=== PATIENT | male | born 1960 ===

== ENCOUNTER 2023-09-22 15:31 | Inpatient (IN) | payer OTHER ==
--- NOTE | 2023-09-22 15:53 | ED ---
General Adult HPI - General Chief complaint: Skin/Abscess/Foreign Body Stated complaint: Sores on body-sent by PCP Time Seen by Provider: 09/22/23 15:51 Source: patient Mode of arrival: wheelchair Limitations: no limitations - History of Present Illness Initial comments: It is a 63-year-old gentleman who presents the ER today from [facility] for worsening sacral and right hip wounds. Patient is wheelchair-bound at baseline he has chronic wounds he been getting wound care but they are worsening and now have malodorous discharge. - Related Data Home Medications Medication Instructions Recorded Confirmed ALPRAZolam [Xanax] 0.25 mg PEG/G-TUBE QID 06/27/23 09/22/23 Aspirin 81 mg PEG/G-TUBE DAILY 06/27/23 09/22/23 Atorvastatin [Lipitor] 40 mg PEG/G-TUBE HS 06/27/23 09/22/23 Clopidogrel [Plavix] 75 mg PEG/G-TUBE DAILY 06/27/23 09/22/23 Cyanocobalamin (Vitamin B-12) 1,000 mcg PEG/G-TUBE DAILY 06/27/23 09/22/23 [Vitamin B-12] Divalproex Sprinkle [Depakote 250 mg PEG/G-TUBE BID 06/27/23 09/22/23 Sprinkle] Doxazosin Mesylate [Cardura] 4 mg PEG/G-TUBE DAILY 06/27/23 09/22/23 Famotidine 20 mg PEG/G-TUBE BID 06/27/23 09/22/23 Ferrous Sulfate Oral Elixir 450 mg PEG/G-TUBE DAILY 06/27/23 09/22/23 [Feosol Liquid] Folic Acid 1 mg PEG/G-TUBE DAILY 06/27/23 09/22/23 HYDROcodone/APAP 5-325MG [[place] 1 tab PEG/G-TUBE Q4H PRN 06/27/23 09/22/23 5-325] Losartan [Cozaar] 25 mg PEG/G-TUBE DAILY 06/27/23 09/22/23 Metoprolol Tartrate 37.5 mg PEG/G-TUBE TID 06/27/23 09/22/23 Scopolamine 1 mg/72 Hr Patch 1 patch TRANSDERM Q72H 06/27/23 09/22/23 [TransDerm Scop] Thiamine [Vitamin B-1] 100 mg PEG/G-TUBE DAILY 06/27/23 09/22/23 levETIRAcetam [Keppra Oral 500 mg PEG/G-TUBE BID 06/27/23 09/22/23 Solution] traMADol HCL 50 mg PEG/G-TUBE TID 06/27/23 09/22/23 Acetaminophen [Tylenol] 650 mg PEG/G-TUBE Q4H PRN 09/22/23 09/22/23 Collagenase [Santyl Ointment] 1 applic TOPICAL BID 09/22/23 09/22/23 Collagenase [Santyl Ointment] 1 applic TOPICAL DAILY PRN 09/22/23 09/22/23 Multivitamins, Thera [Multivitamin 1 tab PEG/G-TUBE DAILY 09/22/23 09/22/23 (formulary)] Nystatin 100,000 Unit/gm Powd 1 applic TOPICAL BID 09/22/23 09/22/23 [Mycostatin Powder] Renacidin Irrigation Solution 50 ml IRRIGATION MOWEFR 09/22/23 09/22/23 (Citric Rgtg-Svvbikaffqyhkh-Cghxtsjnm Carbonate) Sodium Chloride [[place]] 1 spray EA NOSTRIL TID 09/22/23 09/22/23 Allergies Allergy/AdvReac Type Severity Reaction Status Date / Time No Known Allergies Allergy Verified 09/22/23 19:42 Review of Systems ROS Statement: Those systems with pertinent positive or pertinent negative responses have been documented in the HPI. ROS Other: All systems not noted in ROS Statement are negative. Past Medical History Past Medical History: Coronary Artery Disease (CAD), CVA/TIA, GERD/Reflux, Hyperlipidemia, Hypertension, Myocardial Infarction (AL), Seizure Disorder, Vascular Disorder Additional Past Medical History / Comment(s): METABOLIC ENCEPHALOPATHY,DIC,PVD,PROSTATIC HYPERPLASIA,TACHYCARDIA,DYSPHA OSVALDO,HEMOPLEGIA,HEMIPARESIS,DYSARTHRIA,COVID,VITAMIN B12 DEFICIENCY,TUBE FEEDING Last Myocardial Infarction Date:: 01/20/23 History of Any Multi-Drug Resistant Organisms: None Reported Past Surgical History: Orthopedic Surgery Additional Past Surgical History / Comment(s): RANGEL CATHETER,PEG TUBE ,ABOVE THE KNEE AMPUTATION LEFT , Past Psychological History: Depression Smoking Status: Current every day smoker General Exam - General Exam Comments Initial Comments: Physical Exam GENERAL: Chronically ill-appearing debilitated HENT: Normocephalic, Atraumatic. EYES: PERRL, EOMI PULMONARY: Unlabored respirations CARDIOVASCULAR: Regular rate and rhythm ABDOMEN: PEG tube in place, some yellow crusty material around the base of the PEG tube but no overt signs of infection no apparent tenderness to palpation SKIN: There is a unstageable sacral decubitus There is a large wound on the right hip approximately 2 to 3 cm deep with malodorous discharge : Deferred NEUROLOGIC: Patient with mumbling slurred speech, contractures MUSCULOSKELETAL: Left above-knee amputation PSYCHIATRIC: Normal psychiatric evaluation. Limitations: no limitations Course Vital Signs 09/22/23 09/22/23 09/22/23 15:34 18:00 19:00 Temperature 97.8 F Pulse Rate 80 85 92 Respiratory 16 16 16 Rate Blood Pressure 109/76 120/91 107/79 O2 Sat by Pulse 100 94 L 92 L Oximetry 09/22/23 09/22/23 09/22/23 20:00 20:53 22:00 Temperature Pulse Rate 90 79 86 Respiratory 16 20 16 Rate Blood Pressure 118/81 118/61 116/79 O2 Sat by Pulse 99 95 99 Oximetry EKG Findings - EKG Comments: EKG Findings:: EKG interpreted by id EKG obtained at 1807 rate is 90 rhythm is sinus normal axis, normal intervals, OK 124 QRS 89 QTc [address] elevations or depressions no evidence of ischemia or infarction. Medical Decision Making - Medical Decision Making Was pt. sent in by a medical professional or institution (, PA, SYSTEM ADMINISTRATOR, urgent care, hospital, or long term...) When possible be specific @ -, Sent from long term Did you speak to anyone other than the patient for history (EMS, parent, family, police, friend...)? What history was obtained from this source @ -No Did you review nursing and triage notes (agree or disagree)? Why? @ -I reviewed and agree with nursing and triage notes Were old charts reviewed (outside hosp., previous admission, EMS record, old EKG, old radiological studies, urgent care reports/EKG's, long term records)? Report findings @ -Previous admissions were reviewed Differential Diagnosis (chest pain, altered mental status, abdominal pain women, abdominal pain men, vaginal bleeding, weakness, fever, dyspnea, syncope, h eadache, dizziness, GI bleed, back pain, seizure, CVA, palpatations, mental health)? @ -Nonhealing wound, infected wound, underlying sterile myelitis EKG interpreted by me (3pts min.). @ -As above X-rays interpreted by me (1pt min.). @ -None done CT interpreted by me (1pt min.). @ -None done U/S interpreted by me (1pt. min.). @ -None done What testing was considered but not performed or refused? (CT, X-rays, U/S, labs)? Why? @ -None What meds were considered but not given or refused? Why? @ -None Did you discuss the management of the patient with other professionals (professionals i.e. DrBarry, PA, SYSTEM ADMINISTRATOR, lab, RT, psych nurse, home health care social worker, teller supervisor, teacher, chief business officer, watch caser)? Give summary @ -Discussed with admitting physician Was smoking cessation discussed for >3mins.? @ -No Was critical care preformed (if so, how long)? @ -No Were there social determinants of health that impacted care today? How? (Homelessness, low income, unemployed, alcoholism, drug addiction, ramirez sportation, low edu. Level, literacy, decrease access to med. care, senior living, rehab)? @ -No Was there de-escalation of care discussed even if they declined (Discuss DNR or withdrawal of care, Hospice)? DNR status @ -No What co-morbidities impacted this encounter? (DM, HTN, Smoking, COPD, CAD, Cancer, CVA, ARF, Chemo, Hep., AIDS, mental health diagnosis, sleep apnea, morbid obesity)? @ -CVA, paraplegia Was patient admitted / discharged? Hospital course, mention meds given and route, prescriptions, significant lab abnormalities, going to OR and other pertinent info. @ -Admit The patient was seen and evaluated, history was obtained from the patient. History and physical exam are consistent with an infected chronic wound. IV antibiotics were obtained. Septic workup was otherwise unremarkable patient will be admitted for 6 wound care and infectious disease consults. Undiagnosed new problem with uncertain prognosis? @ -No Drug Therapy requiring intensive monitoring for toxicity (Heparin, Nitro, Insulin, Cardizem)? @ -No Were any procedures done? @ -No Diagnosis/symptom? @ -Nonhealing sacral decubitus and right hip wound Acute, or Chronic, or Acute on Chronic? @ -Chronic Uncomplicated (without systemic symptoms) or Complicated (systemic symptoms)? @ -Default Side effects of treatment? @ -No Exacerbation, Progression, or Severe Exacerbation? @ -No Poses a threat to life or bodily function? How? (Chest pain, [place], AL, pneumonia, PE, COPD, DKA, ARF, appy, cholecystitis, CVA, Diverticulitis, Homicidal, Suicidal, threat to staff... and all critical care pts) @ -No - Lab Data Result diagrams: 09/22/23 18:23 09/22/23 18:23 Lab Results 09/22/23 09/22/23 09/22/23 Range/Units 18:23 18:23 18: WBC 5.5 (3.8-10.6) k/uL RBC 3.56 L (4.30-5.90) m/uL Hgb 8.2 L (13.0-17.5) gm/dL Hct 27.1 L (39.0-53.0) % MCV 76.1 L D (80.0-100.0) fL MCH 22.9 L (25.0-35.0) pg MCHC 30.1 L (31.0-37.0) g/dL RDW 17.0 H (11.5-15.5) % Plt Count 651 H (150-450) k/uL MPV 7.0 Neutrophils % 68 % Lymphocytes % 22 % Monocytes % 6 % Eosinophils % 3 % Basophils % 0 % Neutrophils # 3.8 (1.3-7.7) k/uL Lymphocytes # 1.2 (1.0-4.8) k/uL Monocytes # 0.3 (0-1.0) k/uL Eosinophils # 0.1 (0-0.7) k/uL Basophils # 0.0 (0-0.2) k/uL Hypochromasia Moderate Anisocytosis Slight Microcytosis Slight PT 11.9 (10.0-12.5) sec INR 1.1 (<1.2) APTT 29.9 (22.0-30.0) sec Sodium 137 (137-145) mmol/L Potassium 4.2 (3.5-5.1) mmol/L Chloride 101 (98-107) mmol/L Carbon Dioxide 28 (22-30) mmol/L Anion Gap 8 mmol/L BUN 21 H (9-20) mg/dL Creatinine 0.43 L (0.66-1.25) mg/dL Est GFR (CKD-EPI)AfAm >90 (>60 ml/min/1.73 sqM) Est GFR (CKD-EPI)NonAf >90 (>60 ml/min/1.73 sqM) Glucose 100 H (74-99) mg/dL Plasma Lactic Acid [place] (0.7-2.0) mmol/L Calcium 8.8 (8.4-10.2) mg/dL Total Bilirubin 0.5 (0.2-1.3) mg/dL AST 25 (17-59) U/L ALT 32 (4-49) U/L Alkaline Phosphatase 92 (38-126) U/L C-Reactive Protein 8.9 H (<1.0) mg/dL Total Protein 6.8 (6.3-8.2) g/dL Albumin 3.1 L (3.5-5.0) g/dL 09/22/23 Range/Units 18:23 WBC (3.8-10.6) k/uL RBC (4.30-5.90) m/uL Hgb (13.0-17.5) gm/dL Hct (39.0-53.0) % MCV (80.0-100.0) fL MCH (25.0-35.0) pg MCHC (31.0-37.0) g/dL RDW (11.5-15.5) % Plt Count (150-450) k/uL MPV Neutrophils % % Lymphocytes % % Monocytes % % Eosinophils % % Basophils % % Neutrophils # (1.3-7.7) k/uL Lymphocytes # (1.0-4.8) k/uL Monocytes # (0-1.0) k/uL Eosinophils # (0-0.7) k/uL Basophils # (0-0.2) k/uL Hypochromasia Anisocytosis Microcytosis PT (10.0-12.5) sec INR (<1.2) APTT (22.0-30.0) sec Sodium (137-145) mmol/L Potassium (3.5-5.1) mmol/L Chloride (98-107) mmol/L Carbon Dioxide (22-30) mmol/L Anion Gap mmol/L BUN (9-20) mg/dL Creatinine (0.66-1.25) mg/dL Est GFR (CKD-EPI)AfAm (>60 ml/min/1.73 sqM) Est GFR (CKD-EPI)NonAf (>60 ml/min/1.73 sqM) Glucose (74-99) mg/dL Plasma Lactic Acid [place] 1.2 (0.7-2.0) mmol/L Calcium (8.4-10.2) mg/dL Total Bilirubin (0.2-1.3) mg/dL AST (17-59) U/L ALT (4-49) U/L Alkaline Phosphatase (38-126) U/L C-Reactive Protein (<1.0) mg/dL Total Protein (6.3-8.2) g/dL Albumin (3.5-5.0) g/dL Disposition Clinical Impression: Sacral decubitus ulcer, Non-healing wound Disposition: ADMITTED IP TO THIS [facility] Condition: Serious Is patient prescribed a controlled substance at d/c from ED?: No
[2023-09-22 18:42] LABS: Anisocytosis Slight; Basophils % (A) 0 %; Eosinophils # (A) 0.1 k/uL (0-0.7); Eosinophils % (A) 3 %; HCT 27.1 % (39.0-53.0); HGB 8.2 gm/dL (13.0-17.5); Hypochromasia Moderate; Lymphocytes # (A) 1.2 k/uL (1.0-4.8); Lymphocytes % (A) 22 %; MCH 22.9 pg (25.0-35.0); MCHC 30.1 g/dL (31.0-37.0); Microcytosis Slight; Monocytes # (A) 0.3 k/uL (0-1.0); Monocytes % (A) 6 %; Neutrophils # (A) 3.8 k/uL (1.3-7.7); Neutrophils % (A) 68 %; Platelet Count 651 k/uL (150-450); RBC 3.56 m/uL (4.30-5.90); WBC 5.5 k/uL (3.8-10.6)
[2023-09-22 18:51] LABS: INR 1.1 (<1.2); MCV 76.1 fL (80.0-100.0); Partial Thromboplastin Time 29.9 sec (22.0-30.0); Prothrombin Time 11.9 sec (10.0-12.5)
[2023-09-22] MEDS ORDERED: NALOXONE 0.4 MG/ML 1 ML VIAL IV PRN (18:53)
[2023-09-22 19:00] LABS: ALT 32 U/L (4-49); AST 25 U/L (17-59); African American GFR (CKD) >90 (>60 ml/min/1.73 sqM); Albumin 3.1 g/dL (3.5-5.0); Alkaline Phosphatase 92 U/L (38-126); Anion Gap 8 mmol/L; Blood Urea Nitrogen 21 mg/dL (9-20); C Reactive Protein 8.9 mg/dL (<1.0); Calcium 8.8 mg/dL (8.4-10.2); Carbon Dioxide 28 mmol/L (22-30); Chloride 101 mmol/L (98-107); Glucose 100 mg/dL (74-99); Non-African American GFR(CKD) >90 (>60 ml/min/1.73 sqM); Potassium 4.2 mmol/L (3.5-5.1); Sodium 137 mmol/L (137-145); Total Bilirubin 0.5 mg/dL (0.2-1.3); Total Protein 6.8 g/dL (6.3-8.2)
[2023-09-22] MEDS: PIPERACILLIN-TAZOBACTAM 3.375 GM in SODIUM CHLORIDE 0.9% 100 ML IVPB STA (19:02)
[2023-09-23] MEDS: ATORVASTATIN 40 MG TAB PEG/G-TUBE SCH (00:23)
[2023-09-23] MEDS: ALPRAZolam 0.25 MG TAB PEG/G-TUBE SCH (00:23)
[2023-09-23] MEDS: traMADol 50 MG TAB PEG/G-TUBE SCH (00:23)
[2023-09-23] MEDS: levETIRAcetam ORAL SOLN 500 MG/5 ML CUP PEG/G-TUBE SCH (00:36)
[2023-09-23] MEDS: DIVALPROEX SPRINKLE 125 MG CAP.SPRINK PEG/G-TUBE SCH (00:36)
[2023-09-23] MEDS: SODIUM CHLORIDE 0.9% 1,000 ML IV SCH (00:54)
[2023-09-23] MEDS: SCOPOLAMINE 1 MG/72 HR PATCH TRANSDERM SCH (00:59)
[2023-09-23] MEDS: NYSTATIN 100,000 UNIT/GM POWD 15 GM TOPICAL SCH (01:03)
[2023-09-23] MEDS: ACETAMINOPHEN TAB 325 MG TAB PEG/G-TUBE PRN (01:49)
[2023-09-23 02:59] LABS: Erythrocyte Sedimentation Rate 119 mm/Hr (0-20)
[2023-09-23] MEDS: COLLAGENASE 250 UNIT/GM OINTMENT 30 GM TUBE TOPICAL SCH (07:40)
[2023-09-23] MEDS: CYANOCOBALAMIN 500 MCG TAB PEG/G-TUBE SCH (08:49)
[2023-09-23] MEDS: FAMOTIDINE 20 MG TAB PEG/G-TUBE SCH (08:49)
[2023-09-23] MEDS: LOSARTAN 25 MG TAB PEG/G-TUBE SCH (08:51)
[2023-09-23] MEDS: CLOPIDOGREL 75 MG TAB PEG/G-TUBE SCH (08:51)
[2023-09-23] MEDS: METOPROLOL TARTRATE 25 MG TAB PEG/G-TUBE SCH (08:51)
[2023-09-23] MEDS: ASPIRIN 81 MG PEG/G-TUBE SCH (08:51)
[2023-09-23] MEDS: MULTIVITAMINS, THERA 1 EACH TAB PEG/G-TUBE SCH (08:51)
[2023-09-23] MEDS: THIAMINE 100 MG TAB PEG/G-TUBE SCH (08:51)
[2023-09-23] MEDS: FOLIC ACID 1 MG TAB PEG/G-TUBE SCH (08:51)
[2023-09-23] MEDS: FERROUS SULFATE ORAL ELIXIR 300 MG/5 ML CUP PEG/G-TUBE SCH (08:52)
[2023-09-23] MEDS: DOXAZOSIN 4 MG TAB PEG/G-TUBE SCH (08:54)
[2023-09-23] MEDS: SODIUM CHLORIDE 0.65% NASAL SPRAY 44 ML BTL NASAL SCH (08:56)
--- NOTE | 2023-09-23 12:48 | P.GSCN ---
History of Present Illness Consult date: 09/23/23 History of present illness: CHIEF COMPLAINT: Decubitus ulcer of the sacrum and bilateral hips HISTORY OF PRESENT ILLNESS: This is a 63-year-old male who was brought from [facility] due to worsening sacral and bilateral hip wounds. Patient is a poor historian. Information obtained from chart. Patient apparently had worsening drainage that was malodorous. He has been receiving wound care for his chronic wounds. Patient is bedbound. No history of diabetes. Patient did have a low- grade fever on admission. Surgical service consulted for decubitus ulcer debridement. PAST MEDICAL HISTORY: Coronary Artery Disease (CAD), CVA, GERD/Reflux, Hyperlipidemia, Hypertension, Myocardial Infarction (MS), Seizure Disorder, Vascular Disorder, METABOLIC ENCEPHALOPATHY,DIC,PVD,PROSTATIC HYPERPLASIA,TACHYCARDIA,DYSPHASIA,HEMOPLEGIA,HEMIPARESIS,DYSARTHRIA,COVID,VITAMI N B12 DEFICIENCY,TUBE FEEDING PAST SURGICAL HISTORY: PEG TUBE ,ABOVE THE KNEE AMPUTATION LEFT MEDICATIONS: See below ALLERGIES: See below SOCIAL HISTORY: No illicit drug use. REVIEW OF SYSTEMS: CONSTITUTIONAL: Denies fever or chills. HEENT: Denies blurred vision, vision changes, or eye pain. Denies hemoptysis CARDIOVASCULAR: Denies chest pain or pressure. RESPIRATORY: No shortness of breath. GASTROINTESTINAL: See HPI for pertinent findings HEMATOLOGIC: Denies bleeding disorders. GENITOURINARY: Denies any blood in urine or increased urinary frequency. SKIN: Denies pruitis. Denies rash. PHYSICAL EXAM: VITAL SIGNS: Reviewed GENERAL: Well-developed in no acute distress. ABDOMEN: Soft. Nondistended. Nontender NEUROLOGIC: Awake SKIN: Sacral wound with healthy tissue. Left hip wound with granulation tissue noted right hip wound with granulation tissue and drainage. Rectum with large hemorrhoids. Small wound distal to the anus and hemorrhoids with stool present All exam findings were discussed with Dr. Pleitez LABORATORY DATA: WBC 5.5 Hgb 8.2 platelets 651 Sodium 137 potassium 4.2 creatinine 0.43 IMAGING: ASSESSMENT: 1. Sacral wound and bilateral hip wounds 2. History of chronic wounds PLAN: -Patient scheduled for debridement of sacral and bilateral hip wounds on Tuesday, September 26, [address] Pleitez -Hold Plavix -Continue local wound care -Continue offloading Physician Binder Roller note has been reviewed by physician. Signing provider agrees with the documented findings, assessment, and plan of care. Past Medical History Past Medical History: Coronary Artery Disease (CAD), CVA/TIA, GERD/Reflux, Hyperlipidemia, Hypertension, Myocardial Infarction (MS), Seizure Disorder, Vascular Disorder Additional Past Medical History / Comment(s): METABOLIC ENCEPHALOPATHY,DIC,PVD,PROSTATIC HYPER PLASIA,TACHYCARDIA,DYSPHASIA,HEMOPLEGIA,HEMIPARESIS,DYSARTHRIA,COVID,VITAMIN B12 DEFICIENCY,TUBE FEEDING Last Myocardial Infarction Date:: 01/20/23 History of Any Multi-Drug Resistant Organisms: None Reported Past Surgical History: Orthopedic Surgery Additional Past Surgical History / Comment(s): RANGEL CATHETER,PEG TUBE ,ABOVE THE KNEE AMPUTATION LEFT , Past Psychological History: Depression Smoking Status: Unknown if ever smoked Past Alcohol Use History: Abuse Medications and Allergies Home Medications Medication Instructions Recorded Confirmed Type ALPRAZolam [Xanax] 0.25 mg PEG/G-TUBE QID 06/27/23 09/22/23 History Aspirin 81 mg PEG/G-TUBE DAILY 06/27/23 09/22/23 History Atorvastatin [Lipitor] 40 mg PEG/G-TUBE HS 06/27/23 09/22/23 History Clopidogrel [Plavix] 75 mg PEG/G-TUBE DAILY 06/27/23 09/22/23 History Cyanocobalamin (Vitamin B-12) 1,000 mcg PEG/G-TUBE DAILY 06/27/23 09/22/23 History [Vitamin B-12] Divalproex Sprinkle [Depakote 250 mg PEG/G-TUBE BID 06/27/23 09/22/23 History Sprinkle] Doxazosin Mesylate [Cardura] 4 mg PEG/G-TUBE DAILY 06/27/23 09/22/23 History Famotidine 20 mg PEG/G-TUBE BID 06/27/23 09/22/23 History Ferrous Sulfate Oral Elixir 450 mg PEG/G-TUBE DAILY 06/27/23 09/22/23 History [Feosol Liquid] Folic Acid 1 mg PEG/G-TUBE DAILY 06/27/23 09/22/23 History HYDROcodone/APAP 5-325MG [[place] 1 tab PEG/G-TUBE Q4H PRN 06/27/23 09/22/23 History 5-325] Losartan [Cozaar] 25 mg PEG/G-TUBE DAILY 06/27/23 09/22/23 History Metoprolol Tartrate 37.5 mg PEG/G-TUBE TID 06/27/23 09/22/23 History Scopolamine 1 mg/72 Hr Patch 1 patch TRANSDERM Q72H 06/27/23 09/22/23 History [TransDerm Scop] Thiamine [Vitamin B-1] 100 mg PEG/G-TUBE DAILY 06/27/23 09/22/23 History levETIRAcetam [Keppra Oral 500 mg PEG/G-TUBE BID 06/27/23 09/22/23 History Solution] traMADol HCL 50 mg PEG/G-TUBE TID 06/27/23 09/22/23 History Acetaminophen [Tylenol] 650 mg PEG/G-TUBE Q4H PRN 09/22/23 09/22/23 History Collagenase [Santyl Ointment] 1 applic TOPICAL BID 09/22/23 09/22/23 History Collagenase [Santyl Ointment] 1 applic TOPICAL DAILY PRN 09/22/23 09/22/23 History Multivitamins, Thera [Multivitamin 1 tab PEG/G-TUBE DAILY 09/22/23 09/22/23 History (formulary)] Nystatin 100,000 Unit/gm Powd 1 applic TOPICAL BID 09/22/23 09/22/23 History [Mycostatin Powder] Renacidin Irrigation Solution 50 ml IRRIGATION MOWEFR 09/22/23 09/22/23 History (Citric Xynl-Jsydqkosqdlebw-Faibfknbr Carbonate) Sodium Chloride [[place]] 1 spray EA NOSTRIL TID 09/22/23 09/22/23 History Allergies Allergy/AdvReac Type Severity Reaction Status Date / Time No Known Allergies Allergy Verified 09/22/23 19:42 Surgical - Exam Vital Signs Temp Pulse Resp BP Pulse Ox 97.8 F 80 16 109/76 100 09/22/23 15:34 09/22/23 15:34 09/22/23 15:34 09/22/23 15:34 09/22/23 15:34 Results - Labs 09/22/23 18:23 09/22/23 18:23 Abnormal Lab Results - Last 24 Hours (Table) 09/22/23 09/22/23 09/22/23 Range/Units 18:23 18:23 18:23 RBC 3.56 L (4.30-5.90) m/uL Hgb 8.2 L (13.0-17.5) gm/dL Hct 27.1 L (39.0-53.0) % MCV 76.1 L D (80.0-100.0) fL MCH 22.9 L (25.0-35.0) pg MCHC 30.1 L (31.0-37.0) g/dL RDW 17.0 H (11.5-15.5) % Plt Count 651 H (150-450) k/uL ESR 119 H (0-20) mm/Hr BUN 21 H (9-20) mg/dL Creatinine 0.43 L (0.66-1.25) mg/dL Glucose 100 H (74-99) mg/dL C-Reactive Protein 8.9 H (<1.0) mg/dL Albumin 3.1 L (3.5-5.0) g/dL Procalcitonin 0.11 H (0.02-0.09) ng/mL Microbiology - Last 24 Hours (Table) 09/22/23 18:30 Gram Stain - Preliminary Leg - Right Diabetes panel 09/22/23 Range/Units 18:23 Sodium 137 (137-145) mmol/L Potassium 4.2 (3.5-5.1) mmol/L Chloride 101 (98-107) mmol/L Carbon Dioxide 28 (22-30) mmol/L BUN 21 H (9-20) mg/dL Creatinine 0.43 L (0.66-1.25) mg/dL Glucose 100 H (74-99) mg/dL Calcium 8.8 (8.4-10.2) mg/dL AST 25 (17-59) U/L ALT 32 (4-49) U/L Alkaline Phosphatase 92 (38-126) U/L Total Protein 6.8 (6.3-8.2) g/dL Albumin 3.1 L (3.5-5.0) g/dL Calcium panel 09/22/23 Range/Units 18:23 Calcium 8.8 (8.4-10.2) mg/dL Albumin 3.1 L (3.5-5.0) g/dL Pituitary panel 09/22/23 Range/Units 18:23 Sodium 137 (137-145) mmol/L Potassium 4.2 (3.5-5.1) mmol/L Chloride 101 (98-107) mmol/L Carbon Dioxide 28 (22-30) mmol/L BUN 21 H (9-20) mg/dL Creatinine 0.43 L (0.66-1.25) mg/dL Glucose 100 H (74-99) mg/dL Calcium 8.8 (8.4-10.2) mg/dL Adrenal panel 09/22/23 Range/Units 18:23 Sodium 137 (137-145) mmol/L Potassium 4.2 (3.5-5.1) mmol/L Chloride 101 (98-107) mmol/L Carbon Dioxide 28 (22-30) mmol/L BUN 21 H (9-20) mg/dL Creatinine 0.43 L (0.66-1.25) mg/dL Glucose 100 H (74-99) mg/dL Calcium 8.8 (8.4-10.2) mg/dL Total Bilirubin 0.5 (0.2-1.3) mg/dL AST 25 (17-59) U/L ALT 32 (4-49) U/L Alkaline Phosphatase 92 (38-126) U/L Total Protein 6.8 (6.3-8.2) g/dL Albumin 3.1 L (3.5-5.0) g/dL
[2023-09-23] MEDS ORDERED: VANCOMYCIN IV PER PHARMACY 1 EACH MISC MISCELLANE PRN (12:56)
[2023-09-23] MEDS: AMPICILLIN-SULBACTAM 3 GM in SODIUM CHLORIDE 0.9% 100 ML IVPB SCH (13:32)
--- NOTE | 2023-09-23 13:47 | HP ---
HISTORY AND PHYSICAL CHIEF COMPLAINT: Decubitus ulcer. HISTORY OF PRESENT ILLNESS: This is a 63-year-old gentleman with a past medical history of multiple medical problems including stroke with contractures who is a resident of [facility], had worsening sacral and right hip wounds and the patient was taken to [facility], admitted for further evaluation and treatment. The patient is barely responsive, unable to give history, most of the history is taken by discussion with staff and review of chart. Please refer to the pictures of the wounds taken and which is present in the chart. Cultures are pending at this time. There is no history of any fever, rigors, or chills. PAST MEDICAL HISTORY: Reviewed include multiple strokes, contractures, rest of the history and rest of the chart is also reviewed, seizure disorder. HOME MEDICATIONS: Also reviewed include Ultram, doses and rest of medications reviewed. ALLERGIES: None. Family, social history, and review of systems could not be taken because of the patient's change in mental status. PHYSICAL EXAMINATION: VITAL SIGNS: Pulse 79, blood pressure 101/61, respirations 16. NECK: No jugular venous distention. CARDIOVASCULAR: S1, S2. RESPIRATIONS: Few scattered rhonchi and crackles. ABDOMEN: Soft, nontender. LEGS: No edema, no swelling. NERVOUS SYSTEM: Diffuse contractures and weakness present. SKIN: Multiple decubitus ulcers stage 3 to 4 present, pressure ulcers. LABORATORY DATA: WBC 5.5, hemoglobin is 8.2. ASSESSMENT: 1. Multiple decubitus ulcers, pressure ulcers with failure of outpatient treatment. 2. History of stroke with contractures. 3. Hypertension. 4. History of seizure disorder. 5. Multiple complex medical issues. RECOMMENDATIONS AND DISCUSSION: This 63-year-old gentleman presented with multiple complex medical issues, we will monitor the patient closely. We will initiate broad-spectrum IV antibiotics, Infectious Disease evaluation, surgical evaluation, home medications will be continued. DVT prophylaxis. Unasyn has been initiated, obtain the cultures and guarded prognosis. Further recommendations to follow. See orders for further details. MMODL / IJN: [id number] /
[2023-09-23] MEDS: VANCOMYCIN 1,000 MG in SODIUM CHLORIDE 0.9% 250 ML IVPB SCH (14:08)
--- NOTE | 2023-09-23 14:10 | XR ---
EXAMINATION TYPE: XR chest 1V portable DATE OF EXAM: 09/23/2023 COMPARISON: NONE HISTORY: CHF TECHNIQUE: Single frontal view of the chest is obtained. FINDINGS: There is no focal air space opacity, pleural effusion, or pneumothorax seen. The cardiac silhouette size is within normal limits. The osseous structures are intact. Prominence of the right paratracheal stripe. Atherosclerotic change in the aorta. Arthropathy of the shoulders with diffuse osteopenia. IMPRESSION: 1. No acute process. A prominence of the right paratracheal stripe likely reflects thyroid or ectatic vasculature and could be correlated with follow-up PA and lateral views of the chest as the patient' s condition tolerates.
[2023-09-23] MEDS: IOPAMIDOL CONTRAST (ORAL USE) VIAL PO PRN (17:08)
[2023-09-23] MEDS: HYDROcodone/APAP 5-325MG 1 EACH TAB PEG/G-TUBE PRN (19:11)
--- NOTE | 2023-09-23 21:13 | CT ---
EXAMINATION TYPE: CT pelvis w con CT DLP: 316.6 mGycm, Automated exposure control for dose reduction was used. DATE OF EXAM: 09/23/2023 7:04 PM COMPARISON: None. CLINICAL INDICATION:Male, 63 years old with history of Bilateral hip and sacral pressure ulcer ?fistu la; Bilateral hip and sacral pressure ulcer. TECHNIQUE: CT of the pelvis was performed after administration of IV contrast. Multiplanar reformats were generated.. Contrast used:100 ml mL of Isovue 300 with IV Contrast, (none if empty) Oral contrast used: with Oral Contrast (none if empty) FINDINGS: Partially visualized structures include: PEG tube, liver, gallbladder, small and large bowel, pancrea s, kidneys, aorta. No acute abnormalities of these structures is suggested. Contrast throughout the b owel loops without evidence of obstruction. No evidence of appendicitis. Moderate to heavy atheroscle rotic calcification of the aorta and iliac arteries. Moderate amount of stool in the colon including rectum. The bladder is decompressed with a Sutherland ball oon in its lumen. Gas in the bladder lumen is likely incident to the catheter. There is mild diffuse body wall edema. This is greatest over the lateral aspects of the proximal femu rs bilaterally, where there are deep soft tissue ulcers which extend to the cortical surfaces of the proximal femurs bilaterally at the level of the greater trochanters. On the right, this is clearly as sociated with osteophytosis of the underlying bone, consistent with acute active osteomyelitis. On th e left, findings are more subtle but early osteomyelitis of the proximal left femur in the greater tr ochanter region is also suggested. There is generalized decrease in bone density. Heterogeneous appearance of the femoral heads could be due to osteoporosis with no focal destructive lesion seen. Appearance is not clearly typical for AVN but not excluded. No evidence of hip fracture or dislocation. Pelvis appears symmetric and intact. Degenerative change of the SI joints with partial fusion and oss eous bridging on the left more than right. There is a relatively small sacral decubitus ulcer which r eaches the level of the mid to distal sacrum, and there is some volume loss and sclerosis of the bone suggesting a chronic osteomyelitis. IMPRESSION: Mild diffuse body wall edema. This is greatest over the lateral aspects of the proximal femurs bilate rally, where there are deep soft tissue ulcers which extend to the cortical surfaces of the proximal femurs bilaterally at the level of the greater trochanters. On the right, this is clearly associated with osteolysis of the underlying bone, consistent with acut e active osteomyelitis. On the left, findings are more subtle but early osteomyelitis of the proximal left femur in the greater trochanter region is also suggested. Generalized decrease in bone density. Heterogeneous appearance of the femoral heads could be due to o steoporosis with no focal destructive lesion seen. Appearance is not clearly typical for AVN but not excluded. No evidence of hip fracture or dislocation. Pelvis appears symmetric and intact. Degenerative change of the SI joints with partial fusion and oss eous bridging on the left more than right. There is a relatively small sacral decubitus ulcer which r eaches the level of the mid to distal sacrum, and there is some volume loss and sclerosis of the bone suggesting a chronic osteomyelitis.
--- NOTE | 2023-09-23 22:46 | P.CONS ---
History of Present Illness - Reason for Consult Consult date: 09/23/23 Infected decubitus ulcer Requesting physician: Martine Linares - Chief Complaint Worsening pressure ulcer x days - History of Present Illness Patient is a 63-year-old male with a past medical history significant for hypertension hyperlipidemia seizure disorder [place] CVA TIA in this patient who is a resident of a local [facility] patient has been sent to the ER concerning for worsening sacral and bilateral wounds which apparently patient has for couple of months and was getting care at the local [facility] with worsening wound the patient has been sent to the hospital for further evaluation on arrival to the ER the patient was initially afebrile subsequently he did spike a low-grade fever 100 F after midnight, patient was not tachycardic hypotensive or hypoxic and no need for supplemental oxygen patient did have white count of 5.5 creatinine 0.43 liver enzymes are normal patient did have a chest x-ray no acute process patient has been admitted to hospital infectious was consulted for management of antibiotic therapy most information has been obtained from review the chart talking to nursing staff as the patient cannot provide any history Review of Systems Positive points has been mentioned in HPI complete review could not be obtained because of his underlying mental status Past Medical History Past Medical History: Coronary Artery Disease (CAD), CVA/TIA, GERD/Reflux, H yperlipidemia, Hypertension, Myocardial Infarction ([place]), Seizure Disorder, Vascular Disorder Additional Past Medical History / Comment(s): METABOLIC ENCEPHALOPATHY,DIC,PVD,PROSTATIC HYPERPLASIA,TACHYCARDIA,DYSPHASIA,HEMOPLEGIA,HEMIPARESIS,DYSARTHRIA,COVID,VITAMI N B12 DEFICIENCY,TUBE FEEDING Last Myocardial Infarction Date:: 01/20/23 History of Any Multi-Drug Resistant Organisms: None Reported Past Surgical History: Orthopedic Surgery Additional Past Surgical History / Comment(s): RANGEL CATHETER,PEG TUBE ,ABOVE THE KNEE AMPUTATION LEFT , Past Psychological History: Depression Smoking Status: Unknown if ever smoked Past Alcohol Use History: Abuse Medications and Allergies Home Medications Medication Instructions Recorded Confirmed Type ALPRAZolam [Xanax] 0.25 mg PEG/G-TUBE QID 06/27/23 09/22/23 History Aspirin 81 mg PEG/G-TUBE DAILY 06/27/23 09/22/23 History Atorvastatin [Lipitor] 40 mg PEG/G-TUBE HS 06/27/23 09/22/23 History Clopidogrel [Plavix] 75 mg PEG/G-TUBE DAILY 06/27/23 09/22/23 History Cyanocobalamin (Vitamin B-12) 1,000 mcg PEG/G-TUBE DAILY 06/27/23 09/22/23 History [Vitamin B-12] Divalproex Sprinkle [Depakote 250 mg PEG/G-TUBE BID 06/27/23 09/22/23 History Sprinkle] Doxazosin Mesylate [Cardura] 4 mg PEG/G-TUBE DAILY 06/27/23 09/22/23 History Famotidine 20 mg PEG/G-TUBE BID 06/27/23 09/22/23 History Ferrous Sulfate Oral Elixir 450 mg PEG/G-TUBE DAILY 06/27/23 09/22/23 History [Feosol Liquid] Folic Acid 1 mg PEG/G-TUBE DAILY 06/27/23 09/22/23 History HYDROcodone/APAP 5-325MG [[place] 1 tab PEG/G-TUBE Q4H PRN 06/27/23 09/22/23 History 5-325] Losartan [Cozaar] 25 mg PEG/G-TUBE DAILY 06/27/23 09/22/23 History Metoprolol Tartrate 37.5 mg PEG/G-TUBE TID 06/27/23 09/22/23 History Scopolamine 1 mg/72 Hr Patch 1 patch TRANSDERM Q72H 06/27/23 09/22/23 History [TransDerm Scop] Thiamine [Vitamin B-1] 100 mg PEG/G-TUBE DAILY 06/27/23 09/22/23 History levETIRAcetam [Keppra Oral 500 mg PEG/G-TUBE BID 06/27/23 09/22/23 History Solution] traMADol HCL 50 mg PEG/G-TUBE TID 06/27/23 09/22/23 History Acetaminophen [Tylenol] 650 mg PEG/G-TUBE Q4H PRN 09/22/23 09/22/23 History Collagenase [Santyl Ointment] 1 applic TOPICAL BID 09/22/23 09/22/23 History Collagenase [Santyl Ointment] 1 applic TOPICAL DAILY PRN 09/22/23 09/22/23 History Multivitamins, Thera [Multivitamin 1 tab PEG/G-TUBE DAILY 09/22/23 09/22/23 History (formulary)] Nystatin 100,000 Unit/gm Powd 1 applic TOPICAL BID 09/22/23 09/22/23 History [Mycostatin Powder] Renacidin Irrigation Solution 50 ml IRRIGATION MOWEFR 09/22/23 09/22/23 History (Citric Apmy-Fjqydtvtpjezxn-Hynwuzgni Carbonate) Sodium Chloride [[place]] 1 spray EA NOSTRIL TID 09/22/23 09/22/23 History Allergies Allergy/AdvReac Type Severity Reaction Status Date / Time No Known Allergies Allergy Verified 09/22/23 19:42 Physical Exam Vitals: Vital Signs Temp Pulse Pulse Resp BP BP Pulse Ox 09/23/23 08:46 97.9 F 85 102/65 09/23/23 07:03 79 16 101/66 99 09/23/23 01:35 100.0 F H 79 13 99/52 98 09/22/23 23:00 99.4 F 99 17 134/87 99 09/22/23 22:00 86 16 116/79 99 09/22/23 20:53 79 20 118/61 95 09/22/23 20:00 90 16 118/81 99 09/22/23 19:00 92 16 107/79 92 L 09/22/23 18:00 85 16 120/91 94 L 09/22/23 15:34 97.8 F 80 16 109/76 100 Intake and Output 09/22/23 09/23/23 09/23/23 22:59 06:59 14:59 Output Total 525 Balance -525 Output: Urine 525 Other: Voiding Method Indwelling Catheter Weight 58.967 kg 58.967 kg GENERAL DESCRIPTION: Middle-aged male lying in bed, no distress. No tachypnea or accessory muscle of respiration use. HEENT: Shows Pallor , no scleral icterus. Oral mucous membrane is dry. NECK: Trachea central, no thyromegaly. LUNGS: Unlabored breathing. Clear to auscultation anteriorly. No wheeze or crackle. HEART: S1, S2, regular rate and rhythm. No loud murmur ABDOMEN: Soft, no tenderness , EXTREMITIES: No edema of feet. SKIN: Patient did have a sacral pressure ulcer as well as bilateral hip pressure ulcer noticed to have more purulent drainage from the right hip with the bones palpable culture obtained NEUROLOGICAL: The patient is awake, but nonverbal orientation could not be determined Results CBC & Chem 7: 09/22/23 18:23 09/22/23 18:23 Labs: Abnormal Lab Results - Last 24 Hours (Table) 09/22/23 09/22/23 09/22/23 Range/Units 18:23 18:23 18:23 RBC 3.56 L (4.30-5.90) m/uL Hgb 8.2 L (13.0-17.5) gm/dL Hct 27.1 L (39.0-53.0) % MCV 76.1 L D (80.0-100.0) fL MCH 22.9 L (25.0-35.0) pg MCHC 30.1 L (31.0-37.0) g/dL RDW 17.0 H (11.5-15.5) % Plt Count 651 H (150-450) k/uL ESR 119 H (0-20) mm/Hr BUN 21 H (9-20) mg/dL Creatinine 0.43 L (0.66-1.25) mg/dL Glucose 100 H (74-99) mg/dL C-Reactive Protein 8.9 H (<1.0) mg/dL Albumin 3.1 L (3.5-5.0) g/dL Procalcitonin 0.11 H (0.02-0.09) ng/mL Microbiology - Last 24 Hours (Table) 09/22/23 18:30 Gram Stain - Preliminary Leg - Right Assessment and Plan Plan: 1patient was in the hospital with worsening sacral and bilateral hip pressure ulcer patient noticed to have a purulent drainage especially from the right hip which has been cultured and will need to cover for the gram-positive as well as gram-negative pathogen 2-we will obtain CT of the pelvis to include bilateral hip to see evidence of infection and to make sure no evidence of any abscess that may need to be drained 3-patient benefit from surgical as well as orthopedic evaluation for drainage and cultures 4-I will empirically start the patient on Unasyn and vancomycin while waiting for the culture to finalize 5-obtain inflammatory markers We will follow on clinical condition and cultures to further adjust medication if needed Thank you for this consultation we will follow the patient along with you Dictation was produced using [employer] software. please excuse any grammatical, word or spelling errors. Time with Patient: Greater than 30
[2023-09-24 08:00] LABS: Anisocytosis Slight; Basophils % (A) 0 %; Eosinophils # (A) 0.2 k/uL (0-0.7); Eosinophils % (A) 4 %; HCT 21.2 % (39.0-53.0); Hypochromasia Moderate; Lymphocytes # (A) 0.5 k/uL (1.0-4.8); Lymphocytes % (A) 9 %; MCH 23.1 pg (25.0-35.0); MCHC 30.3 g/dL (31.0-37.0); MCV 76.1 fL (80.0-100.0); Mean Platelet Volume 6.8; Microcytosis Slight; Monocytes # (A) 0.2 k/uL (0-1.0); Monocytes % (A) 4 %; Neutrophils # (A) 4.1 k/uL (1.3-7.7); Neutrophils % (A) 83 %; Platelet Count 524 k/uL (150-450); RBC 2.79 m/uL (4.30-5.90); RDW 17.8 % (11.5-15.5)
[2023-09-24 08:02] LABS: African American GFR (CKD) >90 (>60 ml/min/1.73 sqM); Anion Gap 3 mmol/L; Blood Urea Nitrogen 14 mg/dL (9-20); Calcium 7.7 mg/dL (8.4-10.2); Carbon Dioxide 24 mmol/L (22-30); Chloride 107 mmol/L (98-107); Glucose 154 mg/dL (74-99); Non-African American GFR(CKD) >90 (>60 ml/min/1.73 sqM); Potassium 3.8 mmol/L (3.5-5.1); Sodium 134 mmol/L (137-145)
[2023-09-24 08:04] LABS: HGB 6.4 gm/dL (13.0-17.5)
--- NOTE | 2023-09-24 11:07 | P.PN ---
Subjective Progress Note Date: 09/24/23 GRETCHENON. No F/C. No N/V. Objective - Vital Signs Vital signs: Vital Signs Temp 99.6 F 09/24/23 07:22 Pulse 80 09/24/23 09:00 Resp 17 09/24/23 09:00 BP 92/59 09/24/23 07:22 Pulse Ox 95 09/24/23 07:22 FiO2 Intake & Output 09/23/23 09/24/23 09/24/23 18:59 06:59 18:59 Output Total 1400 Balance -1400 Weight 58.967 kg 56 kg Output: Urine 1400 Other: Voiding Method Indwelling Catheter Indwelling Catheter Indwelling Catheter - Exam Gen: NAD, resting comfortably Pulm: non-labored respirations Abd: soft, non-tender, non-distended Extrem: decubital ulceration wound dressings: C/D/I. No drainage or strikethrough seen - Labs CBC & Chem 7: 09/24/23 07:25 09/24/23 07:25 Labs: Abnormal Lab Results - Last 24 Hours (Table) 09/24/23 09/24/23 Range/Units 07:25 07:25 RBC 2.79 L (4.30-5.90) m/uL Hgb 6.4 L* D (13.0-17.5) gm/dL Hct 21.2 L (39.0-53.0) % MCV 76.1 L (80.0-100.0) fL MCH 23.1 L (25.0-35.0) pg MCHC 30.3 L (31.0-37.0) g/dL RDW 17.8 H (11.5-15.5) % Plt Count 524 H (150-450) k/uL Lymphocytes # 0.5 L (1.0-4.8) k/uL Sodium 134 L (137-145) mmol/L Creatinine 0.48 L (0.66-1.25) mg/dL Glucose 154 H (74-99) mg/dL Calcium 7.7 L (8.4-10.2) mg/dL Microbiology - Last 24 Hours (Table) 09/22/23 18:00 Blood Culture - Preliminary Blood 09/22/23 18:23 Blood Culture - Preliminary Blood 09/23/23 13:00 Gram Stain - Preliminary Hip - Right 09/22/23 18:30 Gram Stain - Preliminary Leg - Right Assessment and Plan Assessment: Patient is a 63M with decubital ulcerations Plan: -Diet as tolerated -IVF hydration -PRN pain and nausea control -Care per primary -Plan for operative debridement of decubital ulcerations on Tuesday Jason Maldonado MD General Surgery
--- NOTE | 2023-09-24 14:51 | P.PN ---
Subjective Progress Note Date: 09/24/23 Principal diagnosis: Reason for follow-up infected pressure ulcer Patient is a 63-year-old male with a past medical history significant for hypertension hyperlipidemia seizure disorder [place] CVA TIA in this patient who is a [facility] a local [facility] patient has been sent to the ER concerning for worsening sacral and bilateral wounds, patient did have purulent drainage from his right hip wound which has been cultured and the patient did have a pelvic CT concerning for possible osteomyelitis on the right side. On today's evaluation that is 09/24/2023, Patient is afebrile patient is currently on room air and denies having any shortness of breath, the is more a wake alert today patient denies any chest pain or cough, the patient denies any nausea vomiting did not have any abdominal pain and no diarrhea reported. Patient white count is 5.0, creatinine 0.48 culture currently growing gram- negative bacilli Objective - Vital Signs Vital signs: Vital Signs Temp 99.6 F 09/24/23 07:22 Pulse 80 09/24/23 09:00 Resp 17 09/24/23 09:00 BP 92/59 09/24/23 07:22 Pulse Ox 95 09/24/23 07:22 FiO2 Intake & Output 09/23/23 09/24/23 09/24/23 18:59 06:59 18:59 Output Total 1400 Balance -1400 Weight 58.967 kg 56 kg Output: Urine 1400 Other: Voiding Method Indwelling Catheter Indwelling Catheter Indwelling Catheter - Exam GENERAL DESCRIPTION: Middle-age male lying in bed in no distress RESPIRATORY SYSTEM: Unlabored breathing , decreased breath sounds at bases HEART: S1 S2 regular rate and rhythm , ABDOMEN: Soft , no tenderness Wounds are currently dressed - Labs CBC & Chem 7: 09/24/23 07:25 09/24/23 07:25 Labs: Abnormal Lab Results - Last 24 Hours (Table) 09/24/23 09/24/23 Range/Units 07:25 07:25 RBC 2.79 L (4.30-5.90) m/uL Hgb 6.4 L* D (13.0-17.5) gm/dL Hct 21.2 L (39.0-53.0) % MCV 76.1 L (80.0-100.0) fL MCH 23.1 L (25.0-35.0) pg MCHC 30.3 L (31.0-37.0) g/dL RDW 17.8 H (11.5-15.5) % Plt Count 524 H (150-450) k/uL Lymphocytes # 0.5 L (1.0-4.8) k/uL Sodium 134 L (137-145) mmol/L Creatinine 0.48 L (0.66-1.25) mg/dL Glucose 154 H (74-99) mg/dL Calcium 7.7 L (8.4-10.2) mg/dL Microbiology - Last 24 Hours (Table) 09/23/23 13:00 Gram Stain - Preliminary Hip - Right Wound Culture - Preliminary Gram Neg Bacilli 09/22/23 18:30 Gram Stain - Preliminary Leg - Right Wound Culture - Preliminary Gram Neg Bacilli 09/22/23 18:00 Blood Culture - Preliminary Blood 09/22/23 18:23 Blood Culture - Preliminary Blood Assessment and Plan (1) Pressure ulcer of right hip, stage 4 Current Visit: Yes Status: Acute Code(s): L89.214 - PRESSURE ULCER OF RIGHT HIP, STAGE 4 SNOMED Code(s): 55904680989995 (2) Pressure ulcer of left hip, stage 4 Current Visit: Yes Status: Acute Code(s): L89.224 - PRESSURE ULCER OF LEFT HIP, STAGE 4 SNOMED Code(s): 94724137430272 (3) Sacral decubitus ulcer Current Visit: Yes Status: Acute Code(s): L89.159 - PRESSURE ULCER OF SACRAL REGION, UNSPECIFIED STAGE SNOMED Code(s): 978960936 Plan: 1patient was in the hospital with worsening sacral and bilateral hip pressure ulcer patient noticed to have a purulent drainage especially from the right hip which has been cultured and will need to cover for the gram-positive as well as gram-negative pathogen 2-patient did have CT of the pelvis to include bilateral hip with concern for possible right hip septic arthritis/osteomyelitis 3-patient benefit from orthopedic evaluation because of the abnormality seen on the CAT scan to the right hip 4-local culture growing gram-negative bacilli we will discontinue Unasyn and vancomycin start the patient on Zosyn Dictation was produced using [employer] dictation software. please excuse any grammatical, word or spelling errors. Time with Patient: Less than 30
[2023-09-24] MEDS: PIPERACILLIN-TAZOBACTAM 3.375 GM in SODIUM CHLORIDE 0.9% 100 ML IVPB SCH (16:28)
[2023-09-24] MEDS: PANTOPRAZOLE 40 MG/10 ML VIAL IVP SCH (18:25)
[2023-09-24] MEDS ORDERED: VANCOMYCIN TROUGH DUE 1 EACH MISC MISCELLANE ONE (20:00)
--- NOTE | 2023-09-24 22:11 | PN ---
PROGRESS NOTE DATE OF SERVICE: 09/24/2023 SUBJECTIVE: This 63-year-old gentleman, admitted with significant decubitus ulcers, is extremely pale at this time. The patient continues to be confused and a chest x-ray, which I reviewed personally showed no acute abnormality. Right prominent hilum was noted and CT scan of the pelvis showed diffuse edema, osteomyelitis also is being suspected. PAST MEDICAL HISTORY: Reviewed. REVIEW OF SYSTEMS: Not obtained. CURRENT MEDICATIONS: Reviewed and include [place], dose and rest of medications were noted. PHYSICAL EXAMINATION: VITAL SIGNS: Pulse 78, blood pressure 190/68, respiration 19, temperaturen HEENT: Conjunctiva pale. few scattered rhonchi. ABDOMEN: Soft. NERVOUS SYSTEM: Nonfocal. LABORATORY DATA: Hemoglobin 6.4, rest of the labs are noted. ASSESSMENT: 1. Acute multiple decubitus ulcers with pressure ulcers with failure of outpatient treatment with possible sepsis present on admission. 2. Severe anemia. 3. Possible osteomyelitis. 4. History of stroke with contractures. 5. Hypertension. 6. History of seizure disorder. 7. Multiple complex medical issues. 8. Full code. RECOMMENDATIONS: To continue current management and continue the antibiotics. Continue with current treatment. CT scan noted. Closely follow with Infectious Disease. 1 unit of transfusion. Monitor hemoglobin closely. Otherwise, I would also recommend a bone scan, also prognosis is guarded. Further recommendations to follow. See orders, for details. MMODL / IJN: [id number] / MTDD
[2023-09-25 05:08] LABS: Anisocytosis Slight; Basophils % (A) 1 %; Eosinophils # (A) 0.3 k/uL (0-0.7); Eosinophils % (A) 5 %; HCT 29.1 % (39.0-53.0); Hypochromasia Moderate; Lymphocytes # (A) 0.9 k/uL (1.0-4.8); Lymphocytes % (A) 14 %; MCH 24.2 pg (25.0-35.0); MCHC 30.4 g/dL (31.0-37.0); MCV 79.6 fL (80.0-100.0); Microcytosis Slight; Monocytes # (A) 0.3 k/uL (0-1.0); Monocytes % (A) 5 %; Neutrophils # (A) 4.7 k/uL (1.3-7.7); Neutrophils % (A) 74 %; Platelet Count 504 k/uL (150-450); RBC 3.66 m/uL (4.30-5.90); WBC 6.3 k/uL (3.8-10.6)
[2023-09-25 05:12] LABS: HGB 8.9 gm/dL (13.0-17.5)
[2023-09-25 09:30] LABS: ALT 14 U/L (10-49); AST 17 U/L (14-35); Albumin 2.5 g/dL (3.8-4.9); Albumin/Globulin Ratio 0.86 Ratio (1.60-3.17); Alkaline Phosphatase 65 U/L (41-126); Blood Urea Nitrogen 12.3 mg/dL (9.0-27.0); Carbon Dioxide 20.1 mmol/L (21.6-31.8); Chloride 102 mmol/L (96-109); Globulin 2.9 g/dL (1.6-3.3); Glucose 125 mg/dL (70-110); Potassium 3.8 mmol/L (3.5-5.5); Sodium 136 mmol/L (135-145); Total Bilirubin 0.4 mg/dL (0.3-1.2); Total Protein 5.4 g/dL (6.2-8.2)
--- NOTE | 2023-09-25 12:53 | P.PN ---
Subjective Progress Note Date: 09/25/23 patient been stable. His decubitus ulcer still has necrotic tissue. Patient was scheduled for debridement and the antrum. Objective - Vital Signs Vital signs: Vital Signs Temp 98.0 F 09/25/23 07:32 Pulse 88 09/25/23 08:00 Resp 15 09/25/23 08:00 BP 113/75 09/25/23 07:32 Pulse Ox 91 L 09/25/23 07:32 FiO2 Intake & Output 09/24/23 09/25/23 09/25/23 18:59 06:59 18:59 Intake Total 0 310 Output Total 400 Balance -400 310 Weight 66 kg Intake: Blood Product 0 310 Rc As-1 Unit 0 310 [id number] Output: Urine 400 Other: Voiding Method Indwelling Catheter Indwelling Catheter Indwelling Catheter # Bowel Movements 1 - Labs CBC & Chem 7: 09/25/23 04:08 09/25/23 04:13 Labs: Abnormal Lab Results - Last 24 Hours (Table) 09/24/23 09/25/23 09/25/23 Range/Units 12:06 04:08 04:13 RBC 3.66 L (4.30-5.90) m/uL Hgb 8.9 L D (13.0-17.5) gm/dL Hct 29.1 L (39.0-53.0) % MCV 79.6 L (80.0-100.0) fL MCH 24.2 L (25.0-35.0) pg MCHC 30.4 L (31.0-37.0) g/dL RDW 18.0 H (11.5-15.5) % Plt Count 504 H (150-450) k/uL Lymphocytes # 0.9 L (1.0-4.8) k/uL Carbon Dioxide 20.1 L (21.6-31.8) mmol/L Anion Gap 13.90 H (4.00-12.00) mmol/L Creatinine 0.5 L (0.6-1.5) mg/dL BUN/Creatinine Ratio 24.60 H (12.00-20.00) Ratio Glucose 125 H (70-110) mg/dL Calcium 8.0 L (8.7-10.3) mg/dL Total Protein 5.4 L (6.2-8.2) g/dL Albumin 2.5 L (3.8-4.9) g/dL Albumin/Globulin Ratio 0.86 L (1.60-3.17) Ratio Crossmatch See Detail Microbiology - Last 24 Hours (Table) 09/22/23 18:00 Blood Culture - Preliminary Blood 09/22/23 18:23 Blood Culture - Preliminary Blood 09/23/23 13:00 Gram Stain - Preliminary Hip - Right Wound Culture - Preliminary Proteus mirabilis 09/22/23 18:30 Gram Stain - Preliminary Leg - Right Wound Culture - Preliminary Proteus mirabilis
--- NOTE | 2023-09-26 00:29 | PN ---
PROGRESS NOTE DATE OF SERVICE: 09/25/2023 SUBJECTIVE: This 63-year-old gentleman, who was admitted with multiple decubitus ulcers with failure for treatment and decubitus ulcers, had anemia also. After 1 unit of transfusion, hemoglobin is 8.9. The patient is basically minimally responsive. Surgery is planning debridement in a.m. PAST MEDICAL HISTORY: Reviewed. REVIEW OF SYSTEMS: Not obtained. CURRENT MEDICATIONS: Reviewed include Depakote, dose and rest of medications noted. PHYSICAL EXAMINATION: VITAL SIGNS: Pulse is 88, blood pressure 130/70, and respirations 15. HEENT: Conjunctivae are pale. CARDIOVASCULAR: S1 and S2 ABDOMEN: Soft, decubitus present. NERVOUS SYSTEM: Unchanged. LABORATORY DATA: Hemoglobin 8.9. Rest of the labs are noted. ASSESSMENT: 1. Acute multiple decubitus ulcers with pressure ulcer with failure of outpatient treatment with possible sepsis present on admission, excisional debridements with Proteus mirabilis. 2. Severe anemia, status post transfusion. 3. Possible osteomyelitis. 4. History of stroke with contractures. 5. Hypertension. 6. History of seizure disorder. 7. Multiple complex medical issues. 8. Full code. RECOMMENDATIONS: Recommend to continue current management, continue symptomatic treatment. Repeat labs. Continue with empiric antibiotics. Follow the final cultures. Wound culture showing Proteus. Closely follow with Infectious Disease. Guarded prognosis. See orders for details. MMODL / IJN: [id number] / MTDD
[2023-09-26 06:58] LABS: African American GFR (CKD) >90 (>60 ml/min/1.73 sqM); Anion Gap 6 mmol/L; Blood Urea Nitrogen 10 mg/dL (9-20); Calcium 7.9 mg/dL (8.4-10.2); Carbon Dioxide 24 mmol/L (22-30); Chloride 106 mmol/L (98-107); Glucose 82 mg/dL (74-99); Non-African American GFR(CKD) >90 (>60 ml/min/1.73 sqM); Potassium 3.5 mmol/L (3.5-5.1); Sodium 136 mmol/L (137-145)
[2023-09-26 07:44] LABS: Anisocytosis Slight; HCT 27.9 % (39.0-53.0); HGB 8.5 gm/dL (13.0-17.5); Hypochromasia Slight; MCHC 30.6 g/dL (31.0-37.0); MCV 78.4 fL (80.0-100.0); Mean Platelet Volume 6.9; Microcytosis Slight; Platelet Count 499 k/uL (150-450); RBC 3.56 m/uL (4.30-5.90); RDW 18.4 % (11.5-15.5); WBC 5.3 k/uL (3.8-10.6)
[2023-09-26] MEDS ORDERED: KETAMINE HCL IN 0.9 % NACL 50 MG/5 ML SYRINGE ONE (14:45)
[2023-09-26] MEDS ORDERED: PROPOFOL 10 MG/ML 20 ML VIAL IV ONE (14:45)
[2023-09-26] MEDS ORDERED: ePHEDrine 50 MG/ML 1 ML VIAL ONE (14:45)
[2023-09-26] MEDS ORDERED: fentaNYL (PF) 50 MCG/ML 2 ML AMP ONE (14:45)
[2023-09-26] MEDS: IV FLUID CONTINUATION 1,000 ML IV ONE (14:45)
[2023-09-26] MEDS ORDERED: MIDAZOLAM 2 MG/2 ML VIAL ONE (14:45)
[2023-09-26] MEDS: SODIUM CHLORIDE 0.9% 500 ML 500 ML IV ONE (15:20)
--- NOTE | 2023-09-26 15:51 | P.OP ---
Date of Procedure: 09/26/23 Preoperative Diagnosis: right trochanteric decubitus ulcer Postoperative Diagnosis: necrotic right trochanteric he was ulcer Procedure(s) Performed: debridement of infected right trochanteric decubitus ulcer Anesthesia: MAC Surgeon: Reyes Pleitez Estimated Blood Loss (ml): 10 Pathology: other (necrotic skin Muscle) Condition: stable Disposition: PACU Description of Procedure: patient's placed on the bed in the lateral position. His trochanteric ulcer was prepped and draped usual sterile fashion. The ulcer was probed. There was a tract running anteriorly. The tract was opened and unroofed using left cautery. Necrotic skin and fat and muscle was debrided and sent to pathology. The was retrieved cyst. Several bleeding points were quite good using electrocautery. This wound measured approximately 15 x 15 x 5 cm. Wet-to-dry Kerlix applied. Patient top she will was sent to recovery room stable condition.
--- NOTE | 2023-09-26 16:00 | NM ---
EXAMINATION TYPE: NM bone 3 phase DATE OF EXAM: 09/26/2023 COMPARISON: 09/23/2023 CLINICAL INDICATION: Male, 63 years old with history of osteomyelitis per ct pelvis; Triple phase bone scintigraphy was performed following the injection of 24.2 mCi Tc 99m MDP. Immedia te images and 6 hours post injection images acquired. FINDINGS: There is radiotracer uptake on flow, blood pool and delayed imaging of the bilateral greater trochant ers. Evaluation of the sacrum is limited due to frontal views only during flow imaging. There is at l east increased uptake in the sacrum on delayed imaging lateral view. No flow imaging of the sacrum bi laterally. Additionally there is no lateral blood pool view of the pelvis. Blood pool and delayed inga ging only of the feet limits evaluation for vasculitis. There is at least degeneration changes throug hout the feet. IMPRESSION: 1. Mild three-phase uptake of the bilateral proximal femur suggestive of osteomyelitis. 2. Indeterminate uptake of the sacrum due to positioning there is at least cellulitis over the sacru m.
--- NOTE | 2023-09-26 22:42 | PN ---
PROGRESS NOTE DATE OF SERVICE: 09/26/2023 SUBJECTIVE: This is a 63-year-old gentleman who was admitted with multiple decubitus ulcers with sepsis, he is scheduled to have debridement today. No chest pain, no palpitation. OBJECTIVE: VITAL SIGNS: Pulse 69, blood pressure . CHEST: Clear to auscultation. CARDIOVASCULAR: S1, S2 normal. ABDOMEN: Soft. NERVOUS SYSTEM: Unchanged. SKIN: Decubitus ulcers present. LABORATORY DATA: Hemoglobin 8.5. ASSESSMENT: 1. Acute multiple decubitus ulcers with pressure ulcers with failure of outpatient treatment with possible sepsis present on admission, for excisional debridement with Proteus mirabilis. 2. Severe anemia, status post transfusion. 3. Possible osteomyelitis. 4. History of stroke with contractures. 5. Hypertension. 6. History of seizure disorder. 7. Multiple complex medical issues. 8. Full code. RECOMMENDATIONS: Recommended to continue current medications, continue symptomatic treatment. Otherwise at this time, I will recommend continue the antibiotics, closely follow with surgery. I would recommend repeat labs. Guarded prognosis. Further recommendations to follow. MMODL / IJN: [id number] /
[2023-09-27 08:41] LABS: Basophils # (A) 0.02 X 10*3/uL (0.00-0.10); Basophils % (A) 0.3 %; Eosinophils # (A) 0.28 X 10*3/uL (0.04-0.35); Eosinophils % (A) 4.7 %; HCT 25.1 % (39.6-50.0); HGB 7.6 g/dL (13.0-17.0); Lymphocytes # (A) 1.06 X 10*3/uL (0.90-5.00); Lymphocytes % (A) 17.7 %; MCH 23.9 pg (27.0-32.0); MCHC 30.3 g/dL (32.0-37.0); MCV 78.9 FL (80.0-97.0); Mean Platelet Volume 8.5 FL (9.5-12.2); Monocytes % (A) 6.7 %; NRBC Per 100 WBC 0 X 10*3/uL (0.00-0.01); Neutrophils # (A) 4.19 X 10*3/uL (1.80-7.70); Neutrophils % (A) 69.9 %; Platelet Count 409 X 10*3/uL (140-440); RBC 3.18 X 10*6/uL (4.40-5.60); WBC 5.99 X 10*3/uL (4.50-10.00)
[2023-09-27 08:59] LABS: Blood Urea Nitrogen 9.4 mg/dL (9.0-27.0); Carbon Dioxide 21.6 mmol/L (21.6-31.8); Chloride 103 mmol/L (96-109); Glucose 132 mg/dL (70-110); Potassium 3.7 mmol/L (3.5-5.5); Sodium 136 mmol/L (135-145)
--- NOTE | 2023-09-27 12:42 | CDI ---
Documentation Clarification Form Date: 09/27/2023 From: Katia Alanis Phone: [phone] Admit Date: 09/22/2023 07:03:00 PM Patient Name: Camilo Rollins Visit Number: [id number] Discharge Date: ATTENTION: The Clinical Documentation Specialists (CDI) and [facility] Coding Staff appreciate your assistance in clarifying documentation. Please respond to the clarification below the line at the bottom and electronically sign. The CDI & [facility] Coding staff will review the response and follow-up if needed. Please note: Queries are made part of the Legal Health Record. If you have any questions, please contact the author of this message via ITS. Dr. Alton Javier MD: There is documentation of possible sepsis in the IM note 09/23 and in subsequent note. Additional clarification is requested. History/Risk Factors: 63-year-old male with a history of CAD, CVA, MT and seizures who presents from [facility] with worsening sacral and right hip wounds Clinical Indicators: 09/21 Triage VS: 109/76, 97.8, 80, 16, 100% room air 09/21-09/26 Temperature max: 100.3 on 09/23 09/23 IM PN, Assessment: " 1. Acute multiple decubitus ulcers with pressure ulcers with failure of outpatient treatment with possible sepsis present on admission." 09/25 IM PN, Subjective: "This is a 63-year-old gentleman who was admitted with multiple decubitus ulcers with sepsis, he is scheduled to have debridement today." Assessment: "1. Acute multiple decubitus ulcers with pressure ulcers with failure of outpatient treatment with possible sepsis present on admission, for excisional debridement with Proteus mirabilis." 09/21, 09/23-09/26 WBC: 5.5, 5.0, 6.3, 5.3, 5.99 09/21 Lactic Acid: 1.2 Procalcitonin: 0.11 09/21 Right leg wound culture: Staphylococcus aureus and Proteus mirabilis 09/22 Right hip wound culture: Proteus mirabilis 09/25 Nuclear Medicine 3phase scintigraphy, Impression: "1.Mild three-phase uptake of the bilateral proximal femur suggestive of osteomyelitis. 2. Indeterminate uptake of the sacrum due to positioning there is at least cellulitis over the sacrum." Treatment: Zosyn 3.375gram IV [id number] start 09/23 Unasyn 3gram IV [id number] 09/22-09/23 Vancomycin 1000mg IV [id number] 09/22-09/23 Can you please clarify the diagnosis of Sepsis? [ x ] Sepsis POA and treated [ ] Sepsis ruled out [ ] Other, please specify [ ] Unable to determine In responding to this query, please exercise your independent professional judgment. The [facility] Coding Staff and Clinical Documentation Specialists appreciate your assistance in clarifying documentation, maintaining compliance with coding guidelines, accurately documenting patients condition and capturing severity of illness. The fact that a question is asked does not imply that any particular answer is desired or expected. Communication forms are a method of clarifying documentation and are made part of the Legal Health Record. Thank you in advance for your clarification. Last Revision: June 2020 SIRS Criteria: 2 or more of the following may indicate SIRS Temperature < 96.8F (36C) or > 101.0F (38.3C) Heart Rate > 90 bpm Respiratory Rate > 20 breaths/min or PaCO2 < 32 mmHg White Blood Cell Count > 12,000 or < 4,000 cells/mm3 or > 10% bands MTDD
--- NOTE | 2023-09-27 14:18 | P.PN ---
Subjective Progress Note Date: 09/27/23 the patient underwent debridement of trochanteric ulcer yesterday. The patient's wounds are quite significant. The patient will need chronic wound care. I discussed with the medical doctor that he may benefit from hospice therapy. Objective - Vital Signs Vital signs: Vital Signs Temp 98.4 F 09/27/23 07:00 Pulse 60 09/27/23 13:08 Resp 18 09/27/23 07:00 BP 105/65 09/27/23 13:08 Pulse Ox 100 09/27/23 09:05 FiO2 Intake & Output 09/26/23 09/27/23 09/27/23 18:59 06:59 18:59 Intake Total 750 Output Total 2405 350 Balance -1655 -350 Weight 68.1 kg 68.2 kg Intake: IV 750 Output: Urine 2400 350 Estimated Blood Loss 5 Other: Voiding Method Indwelling Catheter Indwelling Catheter Indwelling Catheter - Labs CBC & Chem 7: 09/27/23 04:46 09/27/23 04:46 Labs: Abnormal Lab Results - Last 24 Hours (Table) 09/27/23 09/27/23 Range/Units 04:46 04:46 RBC 3.18 L (4.40-5.60) X 10*6/uL Hgb 7.6 L (13.0-17.0) g/dL Hct 25.1 L (39.6-50.0) % MCV 78.9 L (80.0-97.0) FL MCH 23.9 L (27.0-32.0) pg MCHC 30.3 L (32.0-37.0) g/dL RDW 19.0 H (11.5-14.5) % MPV 8.5 L (9.5-12.2) FL Creatinine 0.4 L (0.6-1.5) mg/dL BUN/Creatinine Ratio 23.50 H (12.00-20.00) Ratio Glucose 132 H (70-110) mg/dL Calcium 8.0 L (8.7-10.3) mg/dL Microbiology - Last 24 Hours (Table) 09/26/23 15:22 Gram Stain - Preliminary Hip - Right 09/23/23 13:00 Gram Stain - Final Hip - Right Wound Culture - Final Proteus mirabilis 09/22/23 18:30 Gram Stain - Final Leg - Right Wound Culture - Final Staphylococcus aureus Proteus mirabilis
--- NOTE | 2023-09-27 15:09 | P.PN ---
Subjective This is a pleasant 63 years old male who was sent from [facility] for worsening bilateral hip and coccygeal ulcers On admission patient also was anemic with hemoglobin dropped to 6.4 and received 1 unit of blood transfusion Further workup showing cellulitis and wound infections of bilateral hip and sacral areas, he underwent debridement of his right trochanteric decubitus ulcer. Wound culture is growing Proteus. Previous cultures growing Proteus and MSSA. Antibiotic was adjusted to Zosyn as per ID team also he is on gentle hydration with normal saline at 50 mL/h. He is also on aspirin. Pro- Calcitonin is 0.11 which is mildly up. Bone is Showing increased uptake of bilateral proximal femur suggestive of osteomyelitis with at least cellulitis over the sacral region Patient is hemodynamically stable. Patient is afebrile. Hemoglobin is 8.5 and currently 7.6 Patient is currently on Zosyn. Patient is currently on normal saline at 50 mL/h Also he is on aspirin, losartan metoprolol He is also on Depakote and Keppra and Xanax. Objective - Vital Signs Vital signs: Vital Signs Temp 98.4 F 09/27/23 07:00 Pulse 60 09/27/23 13:08 Resp 18 09/27/23 07:00 BP 105/65 09/27/23 13:08 Pulse Ox 100 09/27/23 09:05 FiO2 Intake & Output 09/26/23 09/27/23 09/27/23 18:59 06:59 18:59 Intake Total 750 Output Total 2405 Balance -1655 Weight 68.1 kg 68.2 kg Intake: IV 750 Output: Urine 2400 Estimated Blood Loss 5 Other: Voiding Method Indwelling Catheter Indwelling Catheter Indwelling Catheter - Exam GENERAL: The patient is alert and oriented x3, not in any acute distress. Well developed, well nourished. HEENT: Pupils are round and equally reacting to light. EOMI. No scleral icterus. No conjunctival pallor. Normocephalic, atraumatic. No pharyngeal erythema. No thyromegaly. CARDIOVASCULAR: S1 and S2 present. No murmurs, rubs, or gallops. PULMONARY: Chest is clear to auscultation, no wheezing , no crackles. ABDOMEN: Soft, nontender, nondistended, normoactive bowel sounds. No palpable organomegaly. -MUSCULOSKELETAL: No joint swelling or deformity. Bilateral hip pressure ulcers, right hip surgical wound with dressing in place. Sacral pressure ulcer EXTREMITIES: No cyanosis, clubbing, or pedal edema NEUROLOGICAL: Gross neurological examination did not reveal any focal deficits. SKIN: No rashes. no petechiae. - Labs CBC & Chem 7: 09/27/23 04:46 09/27/23 04:46 Labs: Abnormal Lab Results - Last 24 Hours (Table) 09/27/23 09/27/23 Range/Units 04:46 04:46 RBC 3.18 L (4.40-5.60) X 10*6/uL Hgb 7.6 L (13.0-17.0) g/dL Hct 25.1 L (39.6-50.0) % MCV 78.9 L (80.0-97.0) FL MCH 23.9 L (27.0-32.0) pg MCHC 30.3 L (32.0-37.0) g/dL RDW 19.0 H (11.5-14.5) % MPV 8.5 L (9.5-12.2) FL Creatinine 0.4 L (0.6-1.5) mg/dL BUN/Creatinine Ratio 23.50 H (12.00-20.00) Ratio Glucose 132 H (70-110) mg/dL Calcium 8.0 L (8.7-10.3) mg/dL Microbiology - Last 24 Hours (Table) 09/26/23 15:22 Gram Stain - Preliminary Hip - Right 09/23/23 13:00 Gram Stain - Final Hip - Right Wound Culture - Final Proteus mirabilis 09/22/23 18:30 Gram Stain - Final Leg - Right Wound Culture - Final Staphylococcus aureus Proteus mirabilis Assessment and Plan Assessment: Infected right trochanteric pressure ulcer s/p debridement on 09/25 Bilateral femoral osteomyelitis Anemia requiring 1 unit of blood transfusion Bilateral pressure ulcers of both hips and coccygeal area History of CVA GERD Hypertension Hyperlipidemia Seizure disorder Plan: Continue with Zosyn Continue with normal saline 50 mL/h Bone scan noted. Wound culture is also noted Monitor hemoglobin Will order anemia workup Labs and medication were reviewed.. Continue same treatment. Continue with sym ptomatic treatment. Resume home medication. Monitor labs and vitals. DVT and GI prophylaxis. Further recommendations as per clinical course of the patient DVT prophylaxis: Mechanical GI Prophylaxis: Ppi PT/OT: Pending Prognosis is guarded
[2023-09-28] MEDS: DOXAZOSIN 1 MG TAB PEG/G-TUBE SCH (08:58)
--- NOTE | 2023-09-28 09:23 | P.PN ---
Subjective Progress Note Date: 09/25/23 Principal diagnosis: Reason for follow-up infected pressure ulcer Patient is a 63-year-old male with a past medical history significant for hypertension hyperlipidemia seizure disorder [place] CVA TIA in this patient who is a resident of a local retirement patient has been sent to the ER concerning for worsening sacral and bilateral wounds, patient did have purulent drainage from his right hip wound which has been cultured and the patient did have a pelvic CT concerning for possible osteomyelitis on the right side. On today's evaluation that is 09/25/2023, patient has been afebrile, patient is breathing comfortably and is currently on 2 L nasal cannula oxygen, patient not a very good historian and did not answer any question no vomiting or diarrhea reported by the nursing staff. Patient white count 6.3 creatinine 0.5 Objective - Vital Signs Vital signs: Vital Signs Temp 98.0 F 09/25/23 14:00 Pulse 64 09/25/23 14:50 Resp 16 09/25/23 14:00 BP 84/57 09/25/23 14:50 Pulse Ox 90 L 09/25/23 14:00 FiO2 Intake & Output 09/24/23 09/25/23 09/25/23 18:59 06:59 18:59 Intake Total 0 310 Output Total 400 Balance -400 310 Weight 66 kg Intake: Blood Product 0 310 Rc As-1 Unit 0 310 [id number] Output: Urine 400 Other: Voiding Method Indwelling Catheter Indwelling Catheter Indwelling Catheter # Bowel Movements 1 - Exam GENERAL DESCRIPTION: Middle-age male lying in bed in no distress RESPIRATORY SYSTEM: Unlabored breathing , decreased breath sounds at bases HEART: S1 S2 regular rate and rhythm , ABDOMEN: Soft , no tenderness Wounds are currently dressed - Labs CBC & Chem 7: 09/27/23 04:46 09/27/23 04:46 Labs: Abnormal Lab Results - Last 24 Hours (Table) 09/24/23 09/25/23 09/25/23 Range/Units 12:06 04:08 04:13 RBC 3.66 L (4.30-5.90) m/uL Hgb 8.9 L D (13.0-17.5) gm/dL Hct 29.1 L (39.0-53.0) % MCV 79.6 L (80.0-100.0) fL MCH 24.2 L (25.0-35.0) pg MCHC 30.4 L (31.0-37.0) g/dL RDW 18.0 H (11.5-15.5) % Plt Count 504 H (150-450) k/uL Lymphocytes # 0.9 L (1.0-4.8) k/uL Carbon Dioxide 20.1 L (21.6-31.8) mmol/L Anion Gap 13.90 H (4.00-12.00) mmol/L Creatinine 0.5 L (0.6-1.5) mg/dL BUN/Creatinine Ratio 24.60 H (12.00-20.00) Ratio Glucose 125 H (70-110) mg/dL Calcium 8.0 L (8.7-10.3) mg/dL Total Protein 5.4 L (6.2-8.2) g/dL Albumin 2.5 L (3.8-4.9) g/dL Albumin/Globulin Ratio 0.86 L (1.60-3.17) Ratio Crossmatch See Detail Microbiology - Last 24 Hours (Table) 09/23/23 13:00 Gram Stain - Preliminary Hip - Right Wound Culture - Preliminary Proteus mirabilis 09/22/23 18:30 Gram Stain - Preliminary Leg - Right Wound Culture - Preliminary Proteus mirabilis Presumptive Staph aureus 09/23/23 13:00 Anaerobic Culture - Final Hip - Right 09/22/23 18:00 Blood Culture - Preliminary Blood 09/22/23 18:23 Blood Culture - Preliminary Blood Assessment and Plan (1) Pressure ulcer of right hip, stage 4 Current Visit: Yes Status: Acute Code(s): L89.214 - PRESSURE ULCER OF RIGHT HIP, STAGE 4 SNOMED Code(s): 22106835363058 (2) Pressure ulcer of left hip, stage 4 Current Visit: Yes Status: Acute Code(s): L89.224 - PRESSURE ULCER OF LEFT HIP, STAGE 4 SNOMED Code(s): 48463765810421 (3) Sacral decubitus ulcer Current Visit: Yes Status: Acute Code(s): L89.159 - PRESSURE ULCER OF SACRAL REGION, UNSPECIFIED STAGE SNOMED Code(s): 819423328 Plan: 1patient was in the hospital with worsening sacral and bilateral hip pressure ulcer patient noticed to have a purulent drainage especially from the right hip which has been cultured and will need to cover for the gram-positive as well as gram-negative pathogen 2-patient did have CT of the pelvis to include bilateral hip with concern for possible right hip septic arthritis/osteomyelitis 3-patient currently waiting for surgical debridement and deep culture 4-local culture growing gram-negative bacilli we will continue the patient on Zosyn Dictation was produced using [email or web address] dictation software. please excuse any grammatical, word or spelling errors. Time with Patient: Less than 30
--- NOTE | 2023-09-28 09:24 | P.PN ---
Subjective Progress Note Date: 09/26/23 Principal diagnosis: Reason for follow-up infected pressure ulcer Patient is a 63-year-old male with a past medical history significant for hypertension hyperlipidemia seizure disorder [place] CVA TIA in this patient who is a resident of a local jail patient has been sent to the ER concerning for worsening sacral and bilateral wounds, patient did have purulent drainage from his right hip wound which has been cultured and the patient did have a pelvic CT concerning for possible osteomyelitis on the right side. On today's evaluation that is 09/26/2023,the patient continues to be afebrile, patient is breathing comfortably on 2 L nasal cannula oxygen the patient sleepy lethargic and did not answer any question no vomiting or diarrhea reported by the nursing staff. Patient white count is 5.3 creatinine 0.44 Objective - Vital Signs Vital signs: Vital Signs Temp 98.2 F 09/26/23 13:22 Pulse 76 09/26/23 13:22 Resp 15 09/26/23 13:22 BP 96/62 09/26/23 13:22 Pulse Ox 100 09/26/23 13:22 FiO2 Intake & Output 09/25/23 09/26/23 09/26/23 18:59 06:59 18:59 Intake Total 650 Output Total 1805 Balance -1155 Weight 68.1 kg 68.1 kg Intake: IV 650 Output: Urine 1800 Estimated Blood Loss 5 Other: Voiding Method Indwelling Catheter Indwelling Catheter Indwelling Catheter - Exam GENERAL DESCRIPTION: Middle-age male lying in bed in no distress RESPIRATORY SYSTEM: Unlabored breathing , decreased breath sounds at bases HEART: S1 S2 regular rate and rhythm , ABDOMEN: Soft , no tenderness Wounds are currently dressed - Labs CBC & Chem 7: 09/27/23 04:46 09/27/23 04:46 Labs: Abnormal Lab Results - Last 24 Hours (Table) 09/26/23 09/26/23 Range/Units 06:16 06:16 RBC 3.56 L (4.30-5.90) m/uL Hgb 8.5 L (13.0-17.5) gm/dL Hct 27.9 L (39.0-53.0) % MCV 78.4 L (80.0-100.0) fL MCH 24.0 L (25.0-35.0) pg MCHC 30.6 L (31.0-37.0) g/dL RDW 18.4 H (11.5-15.5) % Plt Count 499 H (150-450) k/uL Sodium 136 L (137-145) mmol/L Creatinine 0.44 L (0.66-1.25) mg/dL Calcium 7.9 L (8.4-10.2) mg/dL Microbiology - Last 24 Hours (Table) 09/23/23 13:00 Gram Stain - Final Hip - Right Wound Culture - Final Proteus mirabilis 09/22/23 18:30 Gram Stain - Final Leg - Right Wound Culture - Final Staphylococcus aureus Proteus mirabilis 09/22/23 18:00 Blood Culture - Preliminary Blood 09/22/23 18:23 Blood Culture - Preliminary Blood 09/23/23 13:00 Anaerobic Culture - Final Hip - Right Assessment and Plan (1) Pressure ulcer of right hip, stage 4 Current Visit: Yes Status: Acute Code(s): L89.214 - PRESSURE ULCER OF RIGHT HIP, STAGE 4 SNOMED Code(s): 07528221272132 (2) Pressure ulcer of left hip, stage 4 Current Visit: Yes Status: Acute Code(s): L89.224 - PRESSURE ULCER OF LEFT HIP, STAGE 4 SNOMED Code(s): 09232096377865 (3) Sacral decubitus ulcer Current Visit: Yes Status: Acute Code(s): L89.159 - PRESSURE ULCER OF SACRAL REGION, UNSPECIFIED STAGE SNOMED Code(s): 408043286 Plan: 1patient was in the hospital with worsening sacral and bilateral hip pressure ulcer patient noticed to have a purulent drainage especially from the right hip which has been cultured and will need to cover for the gram-positive as well as gram-negative pathogen 2-patient did have CT of the pelvis to include bilateral hip with concern for possible right hip septic arthritis/osteomyelitis 3-patient is scheduled for surgical debridement and deep culture this afternoon by general surgery 4-local culture growing Proteus that is resistant to Unasyn we will continue the patient on Zosyn Dictation was produced using [employer] dictation software. please excuse any grammatical, word or spelling errors. Time with Patient: Less than 30
--- NOTE | 2023-09-28 09:25 | P.PN ---
Subjective Progress Note Date: 09/27/23 Principal diagnosis: Reason for follow-up infected pressure ulcer Patient is a 63-year-old male with a past medical history significant for hypertension hyperlipidemia seizure disorder [place] CVA TIA in this patient who is a resident of a local long-term patient has been sent to the ER concerning for worsening sacral and bilateral wounds, patient did have purulent drainage from his right hip wound which has been cultured and the patient did have a pelvic CT concerning for possible osteomyelitis on the right side. Patient is status post surgical debridement of the right trochanteric pressure ulcer by general surgery on 09/26/2023 On today's evaluation that is 09/27/2023,the patient remains to be afebrile, patient is on 2 L nasal cannula supplemental oxygen and breathing comfortably does not seem to be any distress remains to be nonverbal and did not answer any question no vomiting or diarrhea reported by nursing staff. Patient white count is 5.9, creatinine 0.4 Objective - Vital Signs Vital signs: Vital Signs Temp 98.4 F 09/27/23 07:00 Pulse 60 09/27/23 13:08 Resp 18 09/27/23 07:00 BP 105/65 09/27/23 13:08 Pulse Ox 100 09/27/23 09:05 FiO2 Intake & Output 09/26/23 09/27/23 09/27/23 18:59 06:59 18:59 Intake Total 750 Output Total 2405 Balance -1655 Weight 68.1 kg 68.2 kg Intake: IV 750 Output: Urine 2400 Estimated Blood Loss 5 Other: Voiding Method Indwelling Catheter Indwelling Catheter Indwelling Catheter - Exam GENERAL DESCRIPTION: Middle-age male lying in bed in no distress RESPIRATORY SYSTEM: Unlabored breathing , decreased breath sounds at bases HEART: S1 S2 regular rate and rhythm , ABDOMEN: Soft , no tenderness Wounds are currently dressed - Labs CBC & Chem 7: 09/27/23 04:46 09/27/23 04:46 Labs: Abnormal Lab Results - Last 24 Hours (Table) 09/27/23 09/27/23 Range/Units 04:46 04:46 RBC 3.18 L (4.40-5.60) X 10*6/uL Hgb 7.6 L (13.0-17.0) g/dL Hct 25.1 L (39.6-50.0) % MCV 78.9 L (80.0-97.0) FL MCH 23.9 L (27.0-32.0) pg MCHC 30.3 L (32.0-37.0) g/dL RDW 19.0 H (11.5-14.5) % MPV 8.5 L (9.5-12.2) FL Creatinine 0.4 L (0.6-1.5) mg/dL BUN/Creatinine Ratio 23.50 H (12.00-20.00) Ratio Glucose 132 H (70-110) mg/dL Calcium 8.0 L (8.7-10.3) mg/dL Microbiology - Last 24 Hours (Table) 09/26/23 15:22 Gram Stain - Preliminary Hip - Right 09/23/23 13:00 Gram Stain - Final Hip - Right Wound Culture - Final Proteus mirabilis 09/22/23 18:30 Gram Stain - Final Leg - Right Wound Culture - Final Staphylococcus aureus Proteus mirabilis Assessment and Plan (1) Pressure ulcer of right hip, stage 4 Current Visit: Yes Status: Acute Code(s): L89.214 - PRESSURE ULCER OF RIGHT HIP, STAGE 4 SNOMED Code(s): 57472105031530 (2) Pressure ulcer of left hip, stage 4 Current Visit: Yes Status: Acute Code(s): L89.224 - PRESSURE ULCER OF LEFT HIP, STAGE 4 SNOMED Code(s): 85009466464856 (3) Sacral decubitus ulcer Current Visit: Yes Status: Acute Code(s): L89.159 - PRESSURE ULCER OF SACRAL REGION, UNSPECIFIED STAGE SNOMED Code(s): 580352259 Plan: 1patient was in the hospital with worsening sacral and bilateral hip pressure ulcer patient noticed to have a purulent drainage especially from the right hip which has been cultured and will need to cover for the gram-positive as well as gram-negative pathogen 2-patient did have CT of the pelvis to include bilateral hip with concern for possible right hip septic arthritis/osteomyelitis 3-patient is s/p surgical debridement and deep culture of the right trochanteric pressure ulcer by general surgery cultures currently pending 4-local culture growing Proteus that is resistant to Unasyn along with MSSA we will continue the patient on Zosyn, while waiting for the OR culture to finalize however keeping in mind overall poor prognosis hospice may be a better option discussed with admitting physician Dictation was produced using [employer] dictation software. please excuse any grammatical, word or spelling errors. Time with Patient: Less than 30
--- NOTE | 2023-09-28 10:10 | P.PN ---
Subjective This is a pleasant 63 years old male who was sent from [facility] for worsening bilateral hip and coccygeal ulcers On admission patient also was anemic with hemoglobin dropped to 6.4 and received 1 unit of blood transfusion Further workup showing cellulitis and wound infections of bilateral hip and sacral areas, he underwent debridement of his right trochanteric decubitus ulcer. Wound culture is growing Proteus. Previous cultures growing Proteus and MSSA. Antibiotic was adjusted to Zosyn as per ID team also he is on gentle hydration with normal saline at 50 mL/h. He is also on aspirin. Pro- Calcitonin is 0.11 which is mildly up. Bone is Showing increased uptake of bilateral proximal femur suggestive of osteomyelitis with at least cellulitis over the sacral region Patient is hemodynamically stable. Patient is afebrile. Hemoglobin is 8.5 and currently 7.6 Patient is currently on Zosyn. Patient is currently on normal saline at 50 mL/h Also he is on aspirin, losartan metoprolol He is also on Depakote and Keppra and Xanax. 09/28/2023 Patient with extensive bilateral hip wounds and more on the right side s/p debridement Case discussed with surgery team and ID team, surgical team recommending hospice care as he has extensive wound with chances of complete healing are low. I tried to explain to the patient but he could not verbalize understanding. He has public guardian I called the daughter Martine at [phone] and left a message. Plan for PICC line and outpatient IV antibiotic. Prognosis is very poor Objective - Vital Signs Vital signs: Vital Signs Temp 97.6 F 09/28/23 07:20 Pulse 64 09/28/23 07:20 Resp 17 09/28/23 07:20 BP 107/72 09/28/23 07:20 Pulse Ox 100 09/28/23 08:09 FiO2 Intake & Output 09/27/23 09/28/23 09/28/23 18:59 06:59 18:59 Output Total 850 700 Balance -850 -700 Weight 67 kg Output: Urine 850 700 Other: Voiding Method Indwelling Catheter Indwelling Catheter - Exam -GENERAL: The patient is alert and oriented, mildly confused, has no capacity to make decision per my evaluation, not in any acute distress. Well developed, well nourished. HEENT: Pupils are round and equally reacting to light. EOMI. No scleral icterus. No conjunctival pallor. Normocephalic, atraumatic. No pharyngeal erythema. No thyromegaly. CARDIOVASCULAR: S1 and S2 present. No murmurs, rubs, or gallops. PULMONARY: Chest is clear to auscultation, no wheezing , no crackles. ABDOMEN: Soft, nontender, nondistended, normoactive bowel sounds. No palpable organomegaly. -MUSCULOSKELETAL: No joint swelling or deformity. Bilateral hip pressure ulcers, right hip surgical wound with dressing in place. Sacral pressure ulcer EXTREMITIES: No cyanosis, clubbing, or pedal edema NEUROLOGICAL: Gross neurological examination did not reveal any focal deficits. SKIN: No rashes. no petechiae. - Labs CBC & Chem 7: 09/27/23 04:46 09/27/23 04:46 Labs: Microbiology - Last 24 Hours (Table) 09/22/23 18:00 Blood Culture - Final Blood 09/22/23 18:23 Blood Culture - Final Blood 09/26/23 15:22 Gram Stain - Preliminary Hip - Right Wound Culture - Preliminary Enterococcus raffinosus Assessment and Plan Assessment: Infected right trochanteric pressure ulcer s/p debridement on 09/25 Bilateral femoral osteomyelitis Anemia requiring 1 unit of blood transfusion Bilateral pressure ulcers of both hips and coccygeal area History of CVA GERD Hypertension Hyperlipidemia Seizure disorder Plan: Continue with Zosyn Continue with normal saline 50 mL/h Contacted daughter and left a message to call back. Plan for PICC line and outpatient IV antibiotic Hospice care is recommended for the patient as prognosis is poor Monitor hemoglobin Will order anemia workup Labs and medication were reviewed.. Continue same treatment. Continue with symptomatic treatment. Resume home medication. Monitor labs and vitals. DVT and GI prophylaxis. Further recommendations as per clinical course of the patient DVT prophylaxis: Mechanical GI Prophylaxis: Ppi PT/OT: Pending Prognosis is guarded
--- NOTE | 2023-09-28 15:47 | P.PN ---
Subjective Progress Note Date: 09/28/23 CHIEF COMPLAINT: Right trochanteric decubitus ulcer HISTORY OF PRESENT ILLNESS: Patient status post debridement of infected right trochanteric decubitus ulcer. Afebrile. WBC 5.99 PHYSICAL EXAM: VITAL SIGNS: Reviewed. GENERAL: no acute distress. ASSESSMENT: 1. Right trochanteric decubitus ulcer status postdebridement. PLAN: -Patient's wounds are quite significant. Patient will need chronic wound care. Recommend hospice therapy. Physician Material Specialist note has been reviewed by physician. Signing provider agrees with the documented findings, assessment, and plan of care. Objective - Vital Signs Vital signs: Vital Signs Temp 97.6 F 09/28/23 07:20 Pulse 64 09/28/23 08:00 Resp 17 09/28/23 08:00 BP 107/72 09/28/23 07:20 Pulse Ox 100 09/28/23 08:09 FiO2 Intake & Output 09/27/23 09/28/23 09/28/23 18:59 06:59 18:59 Output Total 850 700 Balance -850 -700 Weight 67 kg Output: Urine 850 700 Other: Voiding Method Indwelling Catheter Indwelling Catheter Indwelling Catheter - Labs CBC & Chem 7: 09/27/23 04:46 09/27/23 04:46 Labs: Microbiology - Last 24 Hours (Table) 09/22/23 18:00 Blood Culture - Final Blood 09/22/23 18:23 Blood Culture - Final Blood 09/26/23 15:22 Gram Stain - Preliminary Hip - Right Wound Culture - Preliminary Enterococcus raffinosus
[2023-09-28 16:33] LABS: HCT 26.5 % (39.6-50.0); HGB 7.7 g/dL (13.0-17.0); MCH 24.6 pg (27.0-32.0); MCHC 29.1 g/dL (32.0-37.0); MCV 84.7 FL (80.0-97.0); Mean Platelet Volume 8.7 FL (9.5-12.2); NRBC Per 100 WBC 0 X 10*3/uL (0.00-0.01); Platelet Count 389 X 10*3/uL (140-440); RBC 3.13 X 10*6/uL (4.40-5.60); RDW 19.7 % (11.5-14.5); WBC 6.72 X 10*3/uL (4.50-10.00)
[2023-09-28 17:01] LABS: % Iron Saturation 9.74 (15.00-50.00)
--- NOTE | 2023-09-29 12:19 | XR ---
EXAMINATION TYPE: XR chest 1V DATE OF EXAM: 09/29/2023 11:54 AM CLINICAL INDICATION:Male, 63 years old with history of PICC placement; [facility] COMPARISON: None TECHNIQUE: XR chest 1V Frontal view of the chest. FINDINGS: Lungs/Pleura: There is no evidence of pleural effusion, focal consolidation, or pneumothorax. Pulmonary vascularity: Unremarkable. Heart/mediastinum: Cardiomediastinal silhouette is unremarkable. Musculoskeletal: No acute osseous pathology. Other findings: None Lines/Tubes: Right-sided PICC line with distal tip at the cavoatrial junction. The PICC catheter loops in the righ t lower neck. IMPRESSION: 1. Right-sided PICC line with distal tip at the cavoatrial junction. The PICC catheter loops in the right lower neck. 2. No acute cardiopulmonary disease/process.
--- NOTE | 2023-09-29 12:54 | P.DS ---
Providers Date of admission: 09/22/23 19:03 Attending physician: Evonne Pond Consults: 09/22/23 18:55 Consult Physician Routine Consulting Provider: Ronak Lozano Consult Reason/Comments: infected decub Do you want consulting provider notified?: Yes, Notify in am 09/23/23 11:20 Consult Physician Routine Consulting Provider: Reyes Pleitez Consult Reason/Comments: decub debridement Do you want consulting provider notified?: Yes Primary care physician: Louisa Day DO Hospital Course: Diagnoses: Infected right trochanteric pressure ulcer s/p debridement on 09/25 Bilateral femoral osteomyelitis Anemia requiring 1 unit of blood transfusion Bilateral pressure ulcers of both hips and coccygeal area History of CVA GERD Hypertension Hyperlipidemia Seizure disorder hospital course: This is a pleasant 63 years old male who was sent from [facility] for worsening bilateral hip and coccygeal ulcers. On admission patient also was anemic with hemoglobin dropped to 6.4 and received 1 unit of blood transfusion Further workup showing cellulitis and wound infections of bilateral hip and sacral areas, he underwent debridement of his right trochanteric decubitus ulcer. Wound culture is growing Proteus. Previous cultures growing Proteus and MSSA. Antibiotic was adjusted to Zosyn as per ID team also he is on gentle hydration with normal saline at 50 mL/h. He is also on aspirin. Patient has extensive bilateral wound and osteomyelitis is suspected. Patient requiring prolonged IV antibiotic. The chances of complete resolution and healing is low. Hospice care is recommended for him. Discussed with the family including the son Camilo Rollins and the daughter Martine yesterday and today, both the daughter and the son Camilo who is also legal guardian agreed to talk to hospice for info rmation for now. Also the agreement for the PICC line and the IV antibiotic. Patient has also public legal guardian which is informed by staff and he is agreeable with the plan. Patient looks confused at baseline and cannot show understanding. He does not follow command. He has no insight. He lacks capacity Other than that patient is medically stable and he may be considered for discharge today Patient was cleared for discharge by ID team and surgery team. Problems and management plan were discussed with the patient and he verbalized understanding and acceptance Patient was found stable and can be discharged assisted in guarded prognosis however he needs follow-up as an outpatient. Patient was instructed to follow up with PCP within one week and patient agrees Physical exam Gen: patient is a AAOx3, no distress CVS: S1-S2, RRR, no murmur Lungs: B/L CTA, no wheezing Abdomen: soft, no distention, no tenderness, positive bowel sounds Extremity: no leg edema or induration Time spent more than 35 minutes Patient Condition at Discharge: Serious Plan - Discharge Summary Discharge Rx Participant: No New Discharge Prescriptions: No Action RX: Cyanocobalamin (Vitamin B-12) [Vitamin B-12] 1,000 mcg PEG/G-TUBE DAILY RX: Clopidogrel [Plavix] 75 mg PEG/G-TUBE DAILY RX: Atorvastatin [Lipitor] 40 mg PEG/G-TUBE HS RX: ALPRAZolam [Xanax] 0.25 mg PEG/G-TUBE QID RX: Scopolamine 1 mg/72 Hr Patch [TransDerm Scop] 1 patch TRANSDERM Q72H RX: Thiamine [Vitamin B-1] 100 mg PEG/G-TUBE DAILY RX: traMADol HCL 50 mg PEG/G-TUBE TID Renacidin Irrigation Solution (Citric Ezau-Vkjkwbaqizpczz-Vqvbbnkqz Carbonate) 50 ml IRRIGATION MOWEFR Multivitamins, Thera [Multivitamin (formulary)] 1 tab PEG/G-TUBE DAILY Sodium Chloride [Clarion Henderson] 1 spray EA NOSTRIL TID Divalproex Sprinkle [Depakote Sprinkle] 250 mg PEG/G-TUBE BID RX: Aspirin 81 mg PEG/G-TUBE DAILY RX: Doxazosin Mesylate [Cardura] 4 mg PEG/G-TUBE DAILY RX: Ferrous Sulfate Oral Elixir [Feosol Liquid] 450 mg PEG/G-TUBE DAILY RX: Famotidine 20 mg PEG/G-TUBE BID RX: Folic Acid 1 mg PEG/G-TUBE DAILY RX: HYDROcodone/APAP 5-325MG [Beatty 5-325] 1 tab PEG/G-TUBE Q4H PRN PRN Reason: Pain RX: Metoprolol Tartrate 37.5 mg PEG/G-TUBE TID RX: Losartan [Cozaar] 25 mg PEG/G-TUBE DAILY levETIRAcetam [Keppra Oral Solution] 500 mg PEG/G-TUBE BID Acetaminophen [Tylenol] 650 mg PEG/G-TUBE Q4H PRN PRN Reason: Pain Or Fever > 100.5 Collagenase [Santyl Ointment] 1 applic TOPICAL BID Collagenase [Santyl Ointment] 1 applic TOPICAL DAILY PRN PRN Reason: pressure injury RX: Nystatin 100,000 Unit/gm Powd [Mycostatin Powder] 1 applic TOPICAL BID Discharge Medication List Divalproex Sprinkle [Depakote Sprinkle] 250 mg PEG/G-TUBE BID 06/27/23 [History] RX: ALPRAZolam [Xanax] 0.25 mg PEG/G-TUBE QID 06/27/23 [History] RX: Aspirin 81 mg PEG/G-TUBE DAILY 06/27/23 [History] RX: Atorvastatin [Lipitor] 40 mg PEG/G-TUBE HS 06/27/23 [History] RX: Clopidogrel [Plavix] 75 mg PEG/G-TUBE DAILY 06/27/23 [History] RX: Cyanocobalamin (Vitamin B-12) [Vitamin B-12] 1,000 mcg PEG/G-TUBE DAILY 06/27/23 [History] RX: Doxazosin Mesylate [Cardura] 4 mg PEG/G-TUBE DAILY 06/27/23 [History] RX: Famotidine 20 mg PEG/G-TUBE BID 06/27/23 [History] RX: Ferrous Sulfate Oral Elixir [Feosol Liquid] 450 mg PEG/G-TUBE DAILY 06/27/23 [History] RX: Folic Acid 1 mg PEG/G-TUBE DAILY 06/27/23 [History] RX: HYDROcodone/APAP 5-325MG [Beatty 5-325] 1 tab PEG/G-TUBE Q4H PRN 06/27/23 [History] RX: Losartan [Cozaar] 25 mg PEG/G-TUBE DAILY 06/27/23 [History] RX: Metoprolol Tartrate 37.5 mg PEG/G-TUBE TID 06/27/23 [History] RX: Scopolamine 1 mg/72 Hr Patch [TransDerm Scop] 1 patch TRANSDERM Q72H 06/27/23 [History] RX: Thiamine [Vitamin B-1] 100 mg PEG/G-TUBE DAILY 06/27/23 [History] RX: traMADol HCL 50 mg PEG/G-TUBE TID 06/27/23 [History] levETIRAcetam [Keppra Oral Solution] 500 mg PEG/G-TUBE BID 06/27/23 [History] Acetaminophen [Tylenol] 650 mg PEG/G-TUBE Q4H PRN 09/22/23 [History] Collagenase [Santyl Ointment] 1 applic TOPICAL BID 09/22/23 [History] Collagenase [Santyl Ointment] 1 applic TOPICAL DAILY PRN 09/22/23 [History] Multivitamins, Thera [Multivitamin (formulary)] 1 tab PEG/G-TUBE DAILY 09/22/23 [History] RX: Nystatin 100,000 Unit/gm Powd [Mycostatin Powder] 1 applic TOPICAL BID 09/22/23 [History] Renacidin Irrigation Solution (Citric Szun-Bpwgruixxbtuph-Viyopgsxx Carbonate) 50 ml IRRIGATION MOWEFR 09/22/23 [History] Sodium Chloride [Clarion Henderson] 1 spray EA NOSTRIL TID 09/22/23 [History] Follow up Appointment(s)/Referral(s): Louisa Day DO [Primary Care Provider] - 1-2 days
--- NOTE | 2023-09-29 13:22 | P.PN ---
Subjective Progress Note Date: 09/29/23 CHIEF COMPLAINT: Right trochanteric decubitus ulcer HISTORY OF PRESENT ILLNESS: Patient status post debridement of infected right trochanteric decubitus ulcer. Patient's dressings were changed yesterday. Afebrile. WBC 6.72 Hospice team will likely try to meet with family at the longterm. PHYSICAL EXAM: VITAL SIGNS: Reviewed. GENERAL: no acute distress. ASSESSMENT: 1. Right trochanteric decubitus ulcer status postdebridement. PLAN: -Patient's wounds are quite significant. Patient will need chronic wound care. Recommend hospice therapy. -Antibiotics per infectious disease -Patient is a possible discharge to [facility] today -Patient can be discharged from surgical standpoint Physician Disk Sharpener note has been reviewed by physician. Signing provider agrees with the documented findings, assessment, and plan of care. Objective - Vital Signs Vital signs: Vital Signs Temp 97.5 F L 09/29/23 08:00 Pulse 56 L 09/29/23 08:00 Resp 16 09/29/23 08:00 BP 97/62 09/29/23 08:00 Pulse Ox 93 L 09/29/23 08:00 FiO2 Intake & Output 09/28/23 09/29/23 09/29/23 18:59 06:59 18:59 Intake Total 500 Output Total 525 Balance -525 500 Weight 67.4 kg 67.4 kg Intake: Oral 500 Output: Urine 525 Other: Voiding Method Indwelling Catheter Indwelling Catheter Indwelling Catheter # Bowel Movements 1 - Labs CBC & Chem 7: 09/28/23 08:52 09/27/23 04:46 Labs: Abnormal Lab Results - Last 24 Hours (Table) 09/28/23 09/28/23 Range/Units 08:52 08:52 RBC 3.13 L (4.40-5.60) X 10*6/uL Hgb 7.7 L (13.0-17.0) g/dL Hct 26.5 L (39.6-50.0) % MCH 24.6 L (27.0-32.0) pg MCHC 29.1 L (32.0-37.0) g/dL RDW 19.7 H (11.5-14.5) % MPV 8.7 L (9.5-12.2) FL Iron 15 L (65-175) UG/DL TIBC 154 L (228-460) UG/DL % Saturation 9.74 L (15.00-50.00) Transferrin 110.0 L (204.0-354.0) mg/dL Ferritin 831.0 H (22.0-322.0) ng/mL Vitamin B12 1756.0 H (200.0-944.0) pg/mL Microbiology - Last 24 Hours (Table) 09/26/23 15:22 Gram Stain - Final Hip - Right Wound Culture - Final Enterococcus raffinosus
[2023-09-29] MEDS ORDERED: VANCOMYCIN IV PER PHARMACY 1 EACH MISC MISCELLANE PRN (13:34)
--- NOTE | 2023-09-29 14:53 | XR ---
EXAMINATION TYPE: XR chest 1V confirm line plcmt DATE OF EXAM: 09/29/2023 2:45 PM CLINICAL INDICATION:Male, 63 years old with history of picc adjusted verify placement; COMPARISON: Chest radiographs from 09/29/2023. TECHNIQUE: XR chest 1V confirm line plcmt Frontal view of the chest. FINDINGS: Lungs/Pleura: There is no evidence of pleural effusion, focal consolidation, or pneumothorax. Pulmonary vascularity: Unremarkable. Heart/mediastinum: Cardiomediastinal silhouette is unremarkable. Musculoskeletal: No acute osseous pathology. Other findings: None Lines/Tubes: Interval Adjustment of right PICC. Right internal jugular central venous catheter with distal tip at the cavoatrial junction. IMPRESSION: Right PICC has been adjusted no looping visualized. Appropriate placement of distal tip.
[2023-09-29] MEDS: VANCOMYCIN 1,500 MG in SODIUM CHLORIDE 0.9% 500 ML 500 ML IVPB ONE (16:08)
--- NOTE | 2023-09-29 16:40 | P.PN ---
Subjective Progress Note Date: 09/28/23 Principal diagnosis: Reason for follow-up infected pressure ulcer Patient is a 63-year-old male with a past medical history significant for hypertension hyperlipidemia seizure disorder [place] CVA TIA in this patient who is a resident of a local [facility] patient has been sent to the ER concerning for worsening sacral and bilateral wounds, patient did have purulent drainage from his right hip wound which has been cultured and the patient did have a pelvic CT concerning for possible osteomyelitis on the right side. Patient is status post surgical debridement of the right trochanteric pressure ulcer by general surgery on 09/26/2023 On today's evaluation that is 09/28/2023, the patient continues to be afebrile, the patient is on 2 L nasal oxygen and breathing comfortably, the Pt lethargic not a good historian no vomiting diarrhea did not change reported by the nursing staff. Patient white count is 6.72 Objective - Vital Signs Vital signs: Vital Signs Temp 97.6 F L 09/28/23 14:00 Pulse 58 L 09/28/23 14:00 Resp 17 09/28/23 14:00 BP 97/58 09/28/23 14:00 Pulse Ox 100 09/28/23 14:00 FiO2 2L - Exam GENERAL DESCRIPTION: Middle-age male lying in bed in no distress RESPIRATORY SYSTEM: Unlabored breathing , decreased breath sounds at bases HEART: S1 S2 regular rate and rhythm , ABDOMEN: Soft , no tenderness Wounds are currently dressed - Labs CBC & Chem 7: 09/28/23 08:52 09/27/23 04:46 Labs: Abnormal Lab Results - Last 24 Hours (Table) 09/28/23 Range/Units 08:52 Iron 15 L (65-175) UG/DL TIBC 154 L (228-460) UG/DL % Saturation 9.74 L (15.00-50.00) Transferrin 110.0 L (204.0-354.0) mg/dL Ferritin 831.0 H (22.0-322.0) ng/mL Vitamin B12 1756.0 H (200.0-944.0) pg/mL Microbiology - Last 24 Hours (Table) 09/26/23 15:22 Gram Stain - Final Hip - Right Wound Culture - Final Enterococcus raffinosus Assessment and Plan (1) Pressure ulcer of right hip, stage 4 Current Visit: Yes Status: Acute Code(s): L89.214 - PRESSURE ULCER OF RIGHT HIP, STAGE 4 SNOMED Code(s): 67582293887577 (2) Pressure ulcer of left hip, stage 4 Current Visit: Yes Status: Acute Code(s): L89.224 - PRESSURE ULCER OF LEFT HIP, STAGE 4 SNOMED Code(s): 03089990669955 (3) Sacral decubitus ulcer Current Visit: Yes Status: Acute Code(s): L89.159 - PRESSURE ULCER OF SACRAL REGION, UNSPECIFIED STAGE SNOMED Code(s): 283672180 Plan: 1patient was in the hospital with worsening sacral and bilateral hip pressure ulcer patient noticed to have a purulent drainage especially from the right hip which has been cultured and will need to cover for the gram-positive as well as gram-negative pathogen 2-patient did have CT of the pelvis to include bilateral hip with concern for possible right hip septic arthritis/osteomyelitis 3-patient is s/p surgical debridement and deep culture of the right trochanteric pressure ulcer by general surgery cultures currently pending 4-local culture growing Proteus that is resistant to Unasyn along with MSSA we will continue the patient on Zosyn, while waiting for the OR culture to finalize, care has been discussed with admitting physician he will benefit from hospice if not to get a PICC line for outpatient IV antibiotic therapy Dictation was produced using [employer] dictation software. please excuse any grammatical, word or spelling errors. Time with Patient: Less than 30
--- NOTE | 2023-09-29 16:41 | P.PN ---
Subjective Progress Note Date: 09/29/23 Principal diagnosis: Reason for follow-up infected pressure ulcer Patient is a 63-year-old male with a past medical history significant for hypertension hyperlipidemia seizure disorder [place] CVA TIA in this patient who is a resident of a local alf patient has been sent to the ER concerning for worsening sacral and bilateral wounds, patient did have purulent drainage from his right hip wound which has been cultured and the patient did have a pelvic CT concerning for possible osteomyelitis on the right side. Patient is status post surgical debridement of the right trochanteric pressure ulcer by general surgery on 09/26/2023 On today's evaluation that is 09/29/2023, Patient is afebrile patient is currently on 2 L nasal oxygen and was being fed by the nurse aide patient appears slightly more awake alert today however not a very good historian no vomiting diarrhea did not change reported by nursing staff. No new labs has been repeated today the right hip culture has been finalized with Enterococcus that is resistant to ampicillin Objective - Vital Signs Vital signs: Vital Signs Temp 97.5 F L 09/29/23 08:00 Pulse 56 L 09/29/23 08:00 Resp 16 09/29/23 08:00 BP 97/62 09/29/23 08:00 Pulse Ox 93 L 09/29/23 08:00 FiO2 Intake & Output 09/28/23 09/29/23 09/29/23 18:59 06:59 18:59 Intake Total 500 Output Total 525 Balance -525 500 Weight 67.4 kg 67.4 kg Intake: Oral 500 Output: Urine 525 Other: Voiding Method Indwelling Catheter Indwelling Catheter Indwelling Catheter # Bowel Movements 1 - Exam GENERAL DESCRIPTION: Middle-age male lying in bed in no distress RESPIRATORY SYSTEM: Unlabored breathing , decreased breath sounds at bases HEART: S1 S2 regular rate and rhythm , ABDOMEN: Soft , no tenderness Wounds are currently dressed - Labs CBC & Chem 7: 09/28/23 08:52 09/27/23 04:46 Labs: Abnormal Lab Results - Last 24 Hours (Table) 09/28/23 09/28/23 Range/Units 08:52 08:52 RBC 3.13 L (4.40-5.60) X 10*6/uL Hgb 7.7 L (13.0-17.0) g/dL Hct 26.5 L (39.6-50.0) % MCH 24.6 L (27.0-32.0) pg MCHC 29.1 L (32.0-37.0) g/dL RDW 19.7 H (11.5-14.5) % MPV 8.7 L (9.5-12.2) FL Iron 15 L (65-175) UG/DL TIBC 154 L (228-460) UG/DL % Saturation 9.74 L (15.00-50.00) Transferrin 110.0 L (204.0-354.0) mg/dL Ferritin 831.0 H (22.0-322.0) ng/mL Vitamin B12 1756.0 H (200.0-944.0) pg/mL Microbiology - Last 24 Hours (Table) 09/26/23 15:22 Gram Stain - Final Hip - Right Wound Culture - Final Enterococcus raffinosus Assessment and Plan (1) Pressure ulcer of right hip, stage 4 Current Visit: Yes Status: Acute Code(s): L89.214 - PRESSURE ULCER OF RIGHT HIP, STAGE 4 SNOMED Code(s): 75319139619840 (2) Pressure ulcer of left hip, stage 4 Current Visit: Yes Status: Acute Code(s): L89.224 - PRESSURE ULCER OF LEFT HIP, STAGE 4 SNOMED Code(s): 92464454341065 (3) Sacral decubitus ulcer Current Visit: Yes Status: Acute Code(s): L89.159 - PRESSURE ULCER OF SACRAL REGION, UNSPECIFIED STAGE SNOMED Code(s): 858999875 Plan: 1patient was in the hospital with worsening sacral and bilateral hip pressure ulcer patient noticed to have a purulent drainage especially from the right hip which has been cultured and will need to cover for the gram-positive as well as gram-negative pathogen 2-patient did have CT of the pelvis to include bilateral hip with concern for possible right hip septic arthritis/osteomyelitis 3-patient is s/p surgical debridement and deep culture of the right trochanteric pressure ulcer by general surgery cultures currently pending 4-local culture growing Proteus, MSSA however OR culture from the right hip is growing Enterococcus that is resistant to ampicillin at this time we will discontinue the Zosyn patient has been started on vancomycin and Rocephin plan is for a 6-week course of therapy however clinical doubt will be able to heal this wound infection because of severity and underlying medical condition Dictation was produced using Blend[employer]ation software. please excuse any grammatical, word or spelling errors.
[2023-09-30] MEDS: VANCOMYCIN 1,250 MG in SODIUM CHLORIDE 0.9% 250 ML IVPB SCH (00:43)
[2023-09-30 07:17] LABS: African American GFR (CKD) >90 (>60 ml/min/1.73 sqM); Non-African American GFR(CKD) >90 (>60 ml/min/1.73 sqM)
--- NOTE | 2023-09-30 10:50 | XR ---
EXAMINATION TYPE: XR KUB DATE OF EXAM: 09/30/2023 10:42 AM CLINICAL INDICATION:Male, 63 years old with history of check peg placement; COMPARISON: None. TECHNIQUE: One radiographic view of the abdomen was obtained. FINDINGS: Contrast within the gastric lumen. No evidence of extravasation contrast. The bowel gas pat tern is nonspecific without dilated loops of small or large bowel. There is no evidence for organomeg robby or pneumoperitoneum. The osseous structures are intact. No abnormal calcifications are present. Fecal material and gas are demonstrated throughout the colon and rectum. Atherosclerosis of the fiona rial vasculature. IMPRESSION: PEG tube appears to be in appropriate placement without evidence of extravasation.
--- NOTE | 2023-09-30 13:29 | P.PN ---
Subjective Progress Note Date: 09/30/23 CHIEF COMPLAINT: Right trochanteric decubitus ulcer HISTORY OF PRESENT ILLNESS: Patient is POD#7 status post debridement of infected right trochanteric decubitus ulcer. Patient was initially planned to be discharged back to group home today. However, he pulled out his PEG tube. The balloon of the PEG tube was broken and split open. Unsure if a piece of balloon is missing. Sutherland catheter tubing was inserted into PEG tube track to keep the track open. Discharge was canceled. PHYSICAL EXAM: VITAL SIGNS: Reviewed. GENERAL: no acute distress. ABDOMEN: PEG tube track with mild erythema on the skin with irritation. Minimal drainage noted. ASSESSMENT: 1. Right trochanteric decubitus ulcer status post debridement. 2. Malfunctioning PEG tube PLAN: -Sutherland catheter was inserted into the PEG tube site to keep track open. -Patient scheduled for Peg tube placement on Tuesday with Dr. Pleitez -PEG o gram checked and tube appears in appropriate placement -Patient's wounds are quite significant. Patient will need chronic wound care. Recommend hospice therapy. -Antibiotics and wound care per infectious disease Physician Exercise Science Instructor note has been reviewed by physician. Signing provider agrees with the documented findings, assessment, and plan of care. Objective - Vital Signs Vital signs: Vital Signs Temp 98.6 F 09/30/23 07:31 Pulse 56 L 09/30/23 07:31 Resp 16 09/30/23 11:37 BP 133/63 09/30/23 07:31 Pulse Ox 94 L 09/30/23 07:31 FiO2 Intake & Output 09/29/23 09/30/23 09/30/23 18:59 06:59 18:59 Intake Total 800 120 Output Total 850 450 Balance -50 -450 120 Weight 67.4 kg 69.8 kg Intake: Oral 800 120 Output: Urine 850 450 Other: Voiding Method Indwelling Catheter Indwelling Catheter Indwelling Catheter # Bowel Movements 1 - Labs CBC & Chem 7: 09/28/23 08:52 09/30/23 06:01 Labs: Abnormal Lab Results - Last 24 Hours (Table) 09/30/23 Range/Units 06:01 Creatinine 0.36 L (0.66-1.25) mg/dL
--- NOTE | 2023-09-30 20:08 | P.PN ---
Subjective Progress Note Date: 09/30/23 Principal diagnosis: Reason for follow-up infected pressure ulcer Patient is a 63-year-old male with a past medical history significant for hypertension hyperlipidemia seizure disorder CA CVA TIA in this patient who is a resident of a local halfway patient has been sent to the ER concerning for worsening sacral and bilateral wounds, patient did have purulent drainage from his right hip wound which has been cultured and the patient did have a pelvic CT concerning for possible osteomyelitis on the right side. Patient is status post surgical debridement of the right trochanteric pressure ulcer by general surgery on 09/26/2023 On today's evaluation that is 09/30/2023, patient has been afebrile, patient is breathing comfortably and is currently on 2 L nasal cannula oxygen patient remains to be lethargic nonverbal and did not provide any history, patient did pull out his PEG tube and discharge has been put on hold. Patient did have a creatinine 0.36 no CBC was done today Objective - Vital Signs Vital signs: Vital Signs Temp 98.6 F 09/30/23 07:31 Pulse 56 L 09/30/23 07:31 Resp 16 09/30/23 11:37 BP 133/63 09/30/23 07:31 Pulse Ox 94 L 09/30/23 07:31 FiO2 Intake & Output 09/29/23 09/30/23 09/30/23 18:59 06:59 18:59 Intake Total 800 Output Total 850 450 Balance -50 -450 Weight 67.4 kg 69.8 kg Intake: Oral 800 Output: Urine 850 450 Other: Voiding Method Indwelling Catheter Indwelling Catheter Indwelling Catheter # Bowel Movements 1 - Exam GENERAL DESCRIPTION: Middle-age male lying in bed in no distress RESPIRATORY SYSTEM: Unlabored breathing , decreased breath sounds at bases HEART: S1 S2 regular rate and rhythm , ABDOMEN: Soft , no tenderness Wounds are currently dressed - Labs CBC & Chem 7: 09/28/23 08:52 09/30/23 06:01 Labs: Abnormal Lab Results - Last 24 Hours (Table) 09/30/23 Range/Units 06:01 Creatinine 0.36 L (0.66-1.25) mg/dL Assessment and Plan (1) Pressure ulcer of right hip, stage 4 Current Visit: Yes Status: Acute Code(s): L89.214 - PRESSURE ULCER OF RIGHT HIP, STAGE 4 SNOMED Code(s): 28191650874148 (2) Pressure ulcer of left hip, stage 4 Current Visit: Yes Status: Acute Code(s): L89.224 - PRESSURE ULCER OF LEFT HIP, STAGE 4 SNOMED Code(s): 85503126060038 (3) Sacral decubitus ulcer Current Visit: Yes Status: Acute Code(s): L89.159 - PRESSURE ULCER OF SACRAL REGION, UNSPECIFIED STAGE SNOMED Code(s): 059674134 Plan: 1patient was in the hospital with worsening sacral and bilateral hip pressure ulcer patient noticed to have a purulent drainage especially from the right hip which has been cultured and will need to cover for the gram-positive as well as gram-negative pathogen 2-patient did have CT of the pelvis to include bilateral hip with concern for possible right hip septic arthritis/osteomyelitis 3-patient is s/p surgical debridement and deep culture of the right trochanteric pressure ulcer by general surgery cultures grew Enterococcus ampicillin resistant 4-local culture growing Proteus, MSSA however OR culture from the right hip is growing Enterococcus that is resistant to ampicillin, patient to continue with the vancomycin and Rocephin ,plan is for a 6-week course of antibiotic therapy however chances of healing remains to be low Dictation was produced using [employer] software. please excuse any grammatical, word or spelling errors.
[2023-10-01] MEDS: VANCOMYCIN TROUGH DUE 1 EACH MISC MISCELLANE ONE (01:13)
[2023-10-01] MEDS: VANCOMYCIN 1,000 MG in SODIUM CHLORIDE 0.9% 250 ML IVPB SCH (09:54)
--- NOTE | 2023-10-01 17:03 | P.PN ---
Subjective Progress Note Date: 09/30/23 63 years old male who was sent from [facility] for worsening bilateral hip and coccygeal ulcers On admission patient also was anemic with hemoglobin dropped to 6.4 and received 1 unit of blood transfusion Further workup showing cellulitis and wound infections of bilateral hip and sacral areas, he underwent debridement of his right trochanteric decubitus ulcer. Wound culture is growing Proteus. Previous cultures growing Proteus and MSSA. Antibiotic was adjusted to Zosyn as per ID team also he is on gentle hydration with normal saline at 50 mL/h. He is also on aspirin. Pro- Calcitonin is 0.11 which is mildly up. Bone is Showing increased uptake of bilateral proximal femur suggestive of osteomyelitis with at least cellulitis over the sacral region Patient is hemodynamically stable. Patient is afebrile. Hemoglobin is 8.5 and currently 7.6 Patient is currently on Zosyn. Patient is currently on normal saline at 50 mL/h Also he is on aspirin, losartan metoprolol He is also on Depakote and Keppra and Xanax. Objective - Vital Signs Vital signs: Vital Signs Temp 98.6 F 09/30/23 07:31 Pulse 56 L 09/30/23 07:31 Resp 16 09/30/23 11:37 BP 133/63 09/30/23 07:31 Pulse Ox 94 L 09/30/23 07:31 FiO2 Intake & Output 09/29/23 09/30/23 09/30/23 18:59 06:59 18:59 Intake Total 800 Output Total 850 450 Balance -50 -450 Weight 67.4 kg 69.8 kg Intake: Oral 800 Output: Urine 850 450 Other: Voiding Method Indwelling Catheter Indwelling Catheter Indwelling Catheter # Bowel Movements 1 - Exam -GENERAL: The patient is alert and oriented, mildly confused, has no capacity to make decision per my evaluation, not in any acute distress. Well developed, well nourished. HEENT: Pupils are round and equally reacting to light. EOMI. No scleral icterus. No conjunctival pallor. Normocephalic, atraumatic. No pharyngeal erythema. No thyromegaly. CARDIOVASCULAR: S1 and S2 present. No murmurs, rubs, or gallops. PULMONARY: Chest is clear to auscultation, no wheezing , no crackles. ABDOMEN: Soft, nontender, nondistended, normoactive bowel sounds. No palpable organomegaly. -MUSCULOSKELETAL: No joint swelling or deformity. Bilateral hip pressure ulcers, right hip surgical wound with dressing in place. Sacral pressure ulcer EXTREMITIES: No cyanosis, clubbing, or pedal edema NEUROLOGICAL: Gross neurological examination did not reveal any focal deficits. SKIN: No rashes. no petechiae. - Labs CBC & Chem 7: 09/28/23 08:52 09/30/23 06:01 Labs: Abnormal Lab Results - Last 24 Hours (Table) 09/30/23 Range/Units 06:01 Creatinine 0.36 L (0.66-1.25) mg/dL Assessment and Plan Assessment: Infected right trochanteric pressure ulcer s/p debridement on 09/25 Bilateral femoral osteomyelitis Anemia requiring 1 unit of blood transfusion Bilateral pressure ulcers of both hips and coccygeal area History of CVA GERD Hypertension Hyperlipidemia Seizure disorder Plan: Continue with Zosyn Continue with normal saline 50 mL/h Contacted daughter and left a message to call back. Plan for PICC line and outpatient IV antibiotic Hospice care is recommended for the patient as prognosis is poor Monitor hemoglobin Will order anemia workup Labs and medication were reviewed.. Continue same treatment. Continue with symptomatic treatment. Resume home medication. Monitor labs and vitals. DVT and GI prophylaxis. Further recommendations as per clinical course of the patient DVT prophylaxis: Mechanical GI Prophylaxis: Ppi PT/OT: Pending
--- NOTE | 2023-10-01 17:06 | P.PN ---
Subjective Progress Note Date: 10/01/23 63 years old male who was sent from [facility] for worsening bilateral hip and coccygeal ulcers On admission patient also was anemic with hemoglobin dropped to 6.4 and received 1 unit of blood transfusion Further workup showing cellulitis and wound infections of bilateral hip and sacral areas, he underwent debridement of his right trochanteric decubitus ulcer. Wound culture is growing Proteus. Previous cultures growing Proteus and MSSA. Antibiotic was adjusted to Zosyn as per ID team also he is on gentle hydration with normal saline at 50 mL/h. He is also on aspirin. Pro- Calcitonin is 0.11 which is mildly up. Bone is Showing increased uptake of bilateral proximal femur suggestive of osteomyelitis with at least cellulitis over the sacral region Patient is hemodynamically stable. Patient is afebrile. Hemoglobin is 8.5 and currently 7.6 Patient is currently on Zosyn. Patient is currently on normal saline at 50 mL/h Also he is on aspirin, losartan metoprolol He is also on Depakote and Keppra and Xanax. 10/01/2023 Patient is seen and evaluated in room at bedside; awaits PEG tube insertion -[facility], however patient pulled out his PEG tube; balloon of the PEG tube was broken and split open Vital signs are reviewed and remained stable Patient has currently a Sutherland catheter inserted into the PEG tube site to keep the tract open and is scheduled for PEG tube placement on Tuesday Objective - Vital Signs Vital signs: Vital Signs Temp 97.6 F 10/01/23 07:58 Pulse 79 10/01/23 09:38 Resp 14 10/01/23 07:58 BP 118/66 10/01/23 09:38 Pulse Ox 99 10/01/23 07:58 FiO2 Intake & Output 09/30/23 10/01/23 10/01/23 18:59 06:59 18:59 Intake Total 120 Output Total 710 500 Balance -590 -500 Weight 70.6 kg Intake: Oral 120 Output: Urine 710 500 Other: Voiding Method Indwelling Catheter Indwelling Catheter Indwelling Catheter # Bowel Movements 1 - Exam -GENERAL: The patient is alert and oriented, mildly confused, has no capacity to make decision per my evaluation, not in any acute distress. Well developed, well nourished. HEENT: Pupils are round and equally reacting to light. EOMI. No scleral icterus. No conjunctival pallor. Normocephalic, atraumatic. No pharyngeal erythema. No thyromegaly. CARDIOVASCULAR: S1 and S2 present. No murmurs, rubs, or gallops. PULMONARY: Chest is clear to auscultation, no wheezing , no crackles. ABDOMEN: Soft, nontender, nondistended, normoactive bowel sounds. No palpable organomegaly. -MUSCULOSKELETAL: No joint swelling or deformity. Bilateral hip pressure ulcers, right hip surgical wound with dressing in place. Sacral pressure ulcer EXTREMITIES: No cyanosis, clubbing, or pedal edema NEUROLOGICAL: Gross neurological examination did not reveal any focal deficits. SKIN: No rashes. no petechiae. - Labs CBC & Chem 7: 09/28/23 08:52 09/30/23 06:01 Assessment and Plan Assessment: Infected right trochanteric pressure ulcer s/p debridement on 09/25 Bilateral femoral osteomyelitis Anemia requiring 1 unit of blood transfusion Bilateral pressure ulcers of both hips and coccygeal area History of CVA GERD Hypertension Hyperlipidemia Seizure disorder Plan: Continue with Zosyn Continue with normal saline 50 mL/h Contacted daughter and left a message to call back. Plan for PICC line and outpatient IV antibiotic Hospice care is recommended for the patient as prognosis is poor Monitor hemoglobin Will order anemia workup Labs and medication were reviewed.. Continue same treatment. Continue with symptomatic treatment. Resume home medication. Monitor labs and vitals. DVT and GI prophylaxis. Further recommendations as per clinical course of the patient DVT prophylaxis: Mechanical GI Prophylaxis: Ppi PT/OT: Pending
--- NOTE | 2023-10-01 18:32 | P.PN ---
Progress Note - Text Progress Note Date: 10/01/23 CHIEF COMPLAINT: Right trochanteric decubitus ulcer HISTORY OF PRESENT ILLNESS: Patient is POD#8 status post debridement of infected right trochanteric decubitus ulcer. NAEO PHYSICAL EXAM: VITAL SIGNS: Reviewed. GENERAL: no acute distress. ABDOMEN: PEG tube track with mild erythema on the skin with irritation. Minimal drainage noted. ASSESSMENT: 1. Right trochanteric decubitus ulcer status post debridement. 2. Malfunctioning PEG tube PLAN: -Sutherland catheter was inserted into the PEG tube site to keep track open. -Patient scheduled for Peg tube placement on Tuesday -PEG o gram checked and tube appears in appropriate placement -Patient's wounds are quite significant. Patient will need chronic wound care. Recommend hospice therapy. -Antibiotics and wound care per infectious disease
[2023-10-02 05:50] LABS: African American GFR (CKD) >90 (>60 ml/min/1.73 sqM); Anion Gap 4 mmol/L; Blood Urea Nitrogen 7 mg/dL (9-20); Calcium 7.7 mg/dL (8.4-10.2); Carbon Dioxide 25 mmol/L (22-30); Chloride 108 mmol/L (98-107); Glucose 79 mg/dL (74-99); Non-African American GFR(CKD) >90 (>60 ml/min/1.73 sqM); Potassium 3.2 mmol/L (3.5-5.1); Sodium 137 mmol/L (137-145)
--- NOTE | 2023-10-02 09:34 | P.PN ---
Progress Note - Text Progress Note Date: 10/02/23 patient Amelia stable. He is to continue local wound care of his decubitus ulcers.
[2023-10-02 09:49] LABS: HCT 22.6 % (39.6-50.0); MCH 23.7 pg (27.0-32.0); MCHC 29.2 g/dL (32.0-37.0); Mean Platelet Volume 8.4 FL (9.5-12.2); NRBC Per 100 WBC 0 X 10*3/uL (0.00-0.01); Platelet Count 276 X 10*3/uL (140-440); RBC 2.79 X 10*6/uL (4.40-5.60); RDW 19.9 % (11.5-14.5); WBC 5.53 X 10*3/uL (4.50-10.00)
[2023-10-02 10:02] LABS: Basophils # (A) 0.02 X 10*3/uL (0.00-0.10); Basophils % (A) 0.4 %; Eosinophils # (A) 0.35 X 10*3/uL (0.04-0.35); Eosinophils % (A) 6.3 %; HGB 6.6 g/dL (13.0-17.0); Lymphocytes # (A) 1.73 X 10*3/uL (0.90-5.00); Lymphocytes % (A) 31.3 %; Monocytes # (A) 0.36 X 10*3/uL (0.20-1.00); Monocytes % (A) 6.5 %; Neutrophils # (A) 3.03 X 10*3/uL (1.80-7.70); Neutrophils % (A) 54.8 %
[2023-10-02 10:03] LABS: RBC Morphology Normal (Normal)
[2023-10-02] MEDS: POTASSIUM CHLORIDE 10 MEQ in WATER FOR INJECTION 1 100ML.BAG IVPB STA (11:29)
--- NOTE | 2023-10-02 16:46 | P.PN ---
Subjective Progress Note Date: 10/02/23 63 years old male who was sent from [facility] for worsening bilateral hip and coccygeal ulcers On admission patient also was anemic with hemoglobin dropped to 6.4 and received 1 unit of blood transfusion Further workup showing cellulitis and wound infections of bilateral hip and sacral areas, he underwent debridement of his right trochanteric decubitus ulcer. Wound culture is growing Proteus. Previous cultures growing Proteus and MSSA. Antibiotic was adjusted to Zosyn as per ID team also he is on gentle hydration with normal saline at 50 mL/h. He is also on aspirin. Pro- Calcitonin is 0.11 which is mildly up. Bone is Showing increased uptake of bilateral proximal femur suggestive of osteomyelitis with at least cellulitis over the sacral region Patient is hemodynamically stable. Patient is afebrile. Hemoglobin is 8.5 and currently 7.6 Patient is currently on Zosyn. Patient is currently on normal saline at 50 mL/h Also he is on aspirin, losartan metoprolol He is also on Depakote and Keppra and Xanax. 10/01/2023 Patient is seen and evaluated in room at bedside; awaits PEG tube insertion -Patient was planned to be discharged back to halfway on 09/30/2023, however patient pulled out his PEG tube; balloon of the PEG tube was broken and split open Vital signs are reviewed and remained stable Patient has currently a Sutherland catheter inserted into the PEG tube site to keep the tract open and is scheduled for PEG tube placement on Tuesday10/02/2023 patient is seen and evaluated in room at bedside; discussed with nursing staff; awaits PEG tube placement, tentatively scheduled to be placed on Tuesday Vital signs are reviewed and remained stable Blood work completed this morning reveals WBC of 5.5, hemoglobin of 6.6 down from 7.7 on 09/28/2023, sodium 137, potassium 3.2, BUNs/creatinine of 7/0.4 --Patient will receive 1 unit of packed RBCs; we will continue to monitor H&H closely -Patient remains on Protonix 40 mg IV every 12 hours Objective - Vital Signs Vital signs: Vital Signs Temp 98.2 F 10/02/23 07:56 Pulse 72 10/02/23 07:56 Resp 14 10/02/23 07:56 BP 126/69 10/02/23 07:56 Pulse Ox 100 10/02/23 07:56 FiO2 Intake & Output 10/01/23 10/02/23 10/02/23 18:59 06:59 18:59 Output Total 550 650 400 Balance -550 -650 -400 Weight 64.4 kg Output: Urine 550 650 400 Other: Voiding Method Indwelling Catheter Indwelling Catheter - Exam -GENERAL: The patient is alert and oriented, mildly confused, has no capacity to make decision per my evaluation, not in any acute distress. Well developed, well nourished. HEENT: Pupils are round and equally reacting to light. EOMI. No scleral icterus. No conjunctival pallor. Normocephalic, atraumatic. No pharyngeal erythema. No thyromegaly. CARDIOVASCULAR: S1 and S2 present. No murmurs, rubs, or gallops. PULMONARY: Chest is clear to auscultation, no wheezing , no crackles. ABDOMEN: Soft, nontender, nondistended, normoactive bowel sounds. No palpable organomegaly. -MUSCULOSKELETAL: No joint swelling or deformity. Bilateral hip pressure ulcers, right hip surgical wound with dressing in place. Sacral pressure ulcer EXTREMITIES: No cyanosis, clubbing, or pedal edema NEUROLOGICAL: Gross neurological examination did not reveal any focal deficits. SKIN: No rashes. no petechiae. - Labs CBC & Chem 7: 10/02/23 05:11 10/02/23 05:11 Labs: Abnormal Lab Results - Last 24 Hours (Table) 10/02/23 10/02/23 Range/Units 05:11 05:11 RBC 2.79 L (4.40-5.60) X 10*6/uL Hgb 6.6 A* (13.0-17.0) g/dL Hct 22.6 L (39.6-50.0) % MCH 23.7 L (27.0-32.0) pg MCHC 29.2 L (32.0-37.0) g/dL RDW 19.9 H (11.5-14.5) % MPV 8.4 L (9.5-12.2) FL Potassium 3.2 L (3.5-5.1) mmol/L Chloride 108 H (98-107) mmol/L BUN 7 L (9-20) mg/dL Creatinine 0.40 L (0.66-1.25) mg/dL Calcium 7.7 L (8.4-10.2) mg/dL Assessment and Plan Assessment: Infected right trochanteric pressure ulcer s/p debridement on 09/25 Bilateral femoral osteomyelitis Anemia requiring 1 unit of blood transfusion Bilateral pressure ulcers of both hips and coccygeal area History of CVA GERD Hypertension Hyperlipidemia Seizure disorder Plan: Continue with Zosyn Continue with normal saline 50 mL/h Contacted daughter and left a message to call back. Plan for PICC line and outpatient IV antibiotic Hospice care is recommended for the patient as prognosis is poor Monitor hemoglobin Will order anemia workup Labs and medication were reviewed.. Continue same treatment. Continue with symptomatic treatment. Resume home medication. Monitor labs and vitals. DVT and GI prophylaxis. Further recommendations as per clinical course of the patient DVT prophylaxis: Mechanical GI Prophylaxis: Ppi PT/OT: Pending
[2023-10-02] MEDS: VANCOMYCIN TROUGH DUE 1 EACH MISC MISCELLANE ONE (19:20)
[2023-10-02] MEDS: VANCOMYCIN 750 MG in SODIUM CHLORIDE 0.9% 250 ML IVPB SCH (20:06)
--- NOTE | 2023-10-02 23:12 | P.PN ---
Subjective Progress Note Date: 10/01/23 Principal diagnosis: Reason for follow-up infected pressure ulcer Patient is a 63-year-old male with a past medical history significant for hypertension hyperlipidemia seizure disorder PR CVA TIA in this patient who is a resident of a local retirement patient has been sent to the ER concerning for worsening sacral and bilateral wounds, patient did have purulent drainage from his right hip wound which has been cultured and the patient did have a pelvic CT concerning for possible osteomyelitis on the right side. Patient is status post surgical debridement of the right trochanteric pressure ulcer by general surgery on 09/26/2023 On today's evaluation that is 10/01/2023, Patient is afebrile this morning patient remains to be notable and unable to provide a reliable history is seem to be breathing comfortably on room air no vomiting or diarrhea has been reporte d. Patient did not have any lab draw today Objective - Vital Signs Vital signs: Vital Signs Temp 97.6 F 10/01/23 07:58 Pulse 79 10/01/23 09:38 Resp 14 10/01/23 07:58 BP 118/66 10/01/23 09:38 Pulse Ox 99 10/01/23 07:58 FiO2 Intake & Output 09/30/23 10/01/23 10/01/23 18:59 06:59 18:59 Intake Total 120 Output Total 710 500 Balance -590 -500 Weight 70.6 kg Intake: Oral 120 Output: Urine 710 500 Other: Voiding Method Indwelling Catheter Indwelling Catheter # Bowel Movements 1 - Exam Elderly male lying in bed in no distress Unlabored breathing Wounds are currently dressed Patient is not in any distress - Labs CBC & Chem 7: 10/02/23 05:11 10/02/23 05:11 Assessment and Plan (1) Pressure ulcer of right hip, stage 4 Current Visit: Yes Status: Acute Code(s): L89.214 - PRESSURE ULCER OF RIGHT HIP, STAGE 4 SNOMED Code(s): 04426049217250 (2) Pressure ulcer of left hip, stage 4 Current Visit: Yes Status: Acute Code(s): L89.224 - PRESSURE ULCER OF LEFT HIP, STAGE 4 SNOMED Code(s): 07355182176187 (3) Sacral decubitus ulcer Current Visit: Yes Status: Acute Code(s): L89.159 - PRESSURE ULCER OF SACRAL REGION, UNSPECIFIED STAGE SNOMED Code(s): 842045182 Plan: This is a telehealth visit 1patient presented to the hospital with worsening sacral and bilateral hip pressure ulcer patient noticed to have a purulent drainage especially from the right hip which has been cultured and will need to cover for the gram-positive as well as gram-negative pathogen 2-patient did have CT of the pelvis to include bilateral hip with concern for possible right hip septic arthritis/osteomyelitis 3-patient is s/p surgical debridement and deep culture of the right trochanteric pressure ulcer by general surgery cultures grew Enterococcus ampicillin resistant 4-local culture growing Proteus, MSSA however OR culture from the right hip is growing Enterococcus that is resistant to ampicillin 5- patient is currently being treated with the vancomycin and Rocephin and mon itor clinical course closely Dictation was produced using [employer] dictation software. please excuse any grammatical, word or spelling errors. Time with Patient: Less than 30
--- NOTE | 2023-10-02 23:13 | P.PN ---
Subjective Progress Note Date: 10/02/23 Principal diagnosis: Reason for follow-up infected pressure ulcer Patient is a 63-year-old male with a past medical history significant for hypertension hyperlipidemia seizure disorder [place] CVA TIA in this patient who is a [facility] a local [facility] patient has been sent to the ER concerning for worsening sacral and bilateral wounds, patient did have purulent drainage from his right hip wound which has been cultured and the patient did have a pelvic CT concerning for possible osteomyelitis on the right side. Patient is status post surgical debridement of the right trochanteric pressure ulcer by general surgery on 09/26/2023 On today's evaluation that is 10/02/2023,the patient continues to be afebrile slightly more awake today however that reliable historian did not answer any question no vomiting diarrhea and the changes reported by the nursing staff. Patient did have a white count of 5.53 hemoglobin 6.6 creatinine 0.40 Objective - Vital Signs Vital signs: Vital Signs Temp 98.2 F 10/02/23 07:56 Pulse 72 10/02/23 07:56 Resp 14 10/02/23 07:56 BP 126/69 10/02/23 07:56 Pulse Ox 100 10/02/23 07:56 FiO2 Intake & Output 10/01/23 10/02/23 10/02/23 18:59 06:59 18:59 Output Total 550 650 400 Balance -550 -650 -400 Weight 64.4 kg Output: Urine 550 650 400 Other: Voiding Method Indwelling Catheter Indwelling Catheter - Exam Elderly male lying in bed in no distress Unlabored breathing Patient is not in any distress Patient did have a significantly deep wound to the right trochanteric area wounds to the sacral and left trochanter not deep and no slough tissue - Labs CBC & Chem 7: 10/02/23 05:11 10/02/23 05:11 Labs: Abnormal Lab Results - Last 24 Hours (Table) 10/02/23 10/02/23 Range/Units 05:11 05:11 RBC 2.79 L (4.40-5.60) X 10*6/uL Hgb 6.6 A* (13.0-17.0) g/dL Hct 22.6 L (39.6-50.0) % MCH 23.7 L (27.0-32.0) pg MCHC 29.2 L (32.0-37.0) g/dL RDW 19.9 H (11.5-14.5) % MPV 8.4 L (9.5-12.2) FL Potassium 3.2 L (3.5-5.1) mmol/L Chloride 108 H (98-107) mmol/L BUN 7 L (9-20) mg/dL Creatinine 0.40 L (0.66-1.25) mg/dL Calcium 7.7 L (8.4-10.2) mg/dL Assessment and Plan (1) Pressure ulcer of right hip, stage 4 Current Visit: Yes Status: Acute Code(s): L89.214 - PRESSURE ULCER OF RIGHT HIP, STAGE 4 SNOMED Code(s): 82033584611066 (2) Pressure ulcer of left hip, stage 4 Current Visit: Yes Status: Acute Code(s): L89.224 - PRESSURE ULCER OF LEFT HIP, STAGE 4 SNOMED Code(s): 34828082395661 (3) Sacral decubitus ulcer Current Visit: Yes Status: Acute Code(s): L89.159 - PRESSURE ULCER OF SACRAL REGION, UNSPECIFIED STAGE SNOMED Code(s): 711597833 Plan: This is a telehealth visit 1patient presented to the hospital with worsening sacral and bilateral hip pressure ulcer patient noticed to have a purulent drainage especially from the right hip which has been cultured and will need to cover for the gram-positive as well as gram-negative pathogen 2-patient did have CT of the pelvis to include bilateral hip with concern for possible right hip septic arthritis/osteomyelitis 3-patient is s/p surgical debridement and deep culture of the right trochanteric pressure ulcer by general surgery cultures grew Enterococcus ampicillin resistant 4-local culture growing Proteus, MSSA however OR culture from the right hip is growing Enterococcus that is resistant to ampicillin 5- patient is currently being treated with the vancomycin and Rocephin, local wound care has been discussed with the nursing staff he currently did have a wet-to-dry to the right trochanteric area and Aquacel silver to the sacral and the left trochanter wound however he will benefit from application of wound VAC Dictation was produced using [employer] dictation software. please excuse any grammatical, word or spelling errors. Time with Patient: Less than 30
[2023-10-03] MEDS: VANCOMYCIN 750 MG in SODIUM CHLORIDE 0.9% 250 ML IVPB SCH (04:47)
[2023-10-03 05:54] LABS: Anisocytosis Slight; HCT 28.4 % (39.0-53.0); Hypochromasia Slight; MCH 25.4 pg (25.0-35.0); MCHC 31.6 g/dL (31.0-37.0); MCV 80.3 fL (80.0-100.0); Mean Platelet Volume 7.3; Microcytosis Slight; Platelet Count 308 k/uL (150-450); RBC 3.53 m/uL (4.30-5.90); WBC 6.5 k/uL (3.8-10.6)
[2023-10-03 06:15] LABS: African American GFR (CKD) >90 (>60 ml/min/1.73 sqM); Anion Gap 3 mmol/L; Blood Urea Nitrogen 7 mg/dL (9-20); Calcium 7.8 mg/dL (8.4-10.2); Carbon Dioxide 25 mmol/L (22-30); Chloride 109 mmol/L (98-107); Glucose 81 mg/dL (74-99); Non-African American GFR(CKD) >90 (>60 ml/min/1.73 sqM); Potassium 3.1 mmol/L (3.5-5.1); Sodium 137 mmol/L (137-145)
[2023-10-03] MEDS: POTASSIUM CHLORIDE 10 MEQ in WATER FOR INJECTION 1 100ML.BAG IVPB SCH (10:36)
--- NOTE | 2023-10-03 12:19 | P.CONS ---
History of Present Illness - Reason for Consult Consult date: 10/03/23 wound care - History of Present Illness This is a 63-year-old patient being seen on 4 S. for stage IV pressure ulcers to right and left trochanter and Stage III pressure ulcersacrum. Patient underwent a surgical debridement of the right trochanter with the ulceration measuring 15 x 5 x 5 cm's at this time they are utilizing a wet-to-dry dressing. Patient has significant amount of slough and nonviable tissue present and is not a candidate for a negative pressure wound VAC at this time. Patient has a ulceration to the left trochanter measuring approximately 1 x 1 x 3 cm with significant amount of slough and nonviable tissue present no granulation seen within the wound bed. Patient has a pressure ulcer to the sacrum measuring approximately 5 by 10 x 3cm . Granulation seen throughout the wound bed with slough and nonviable tissue present. Review of systems: Unable to obtain due to patient being poor historian Review Of Systems: Constitutional: No fever, no chills, no night sweats. No weight change. No weakness, fatigue or lethargy. No daytime sleepiness. Integumentary:reports wounds, no lesions. No rash or pruritus. No unusual bruising. No change in hair or nails. Assessment: 1. Stage IV pressure ulcer right trochanter 2. Stage IV pressure ulcer left trochanter 3. Stage III pressure ulcer sacrum Plan: 1. Apply negative pressure wound VAC at 125 mmHg with black foam to the sacral ulceration. Left and right trochanter ulcerations apply Santyl, saline moist gauze dry gauze ABD and secure with tape change daily. Patient would benefit from advanced wound care and wound care setting. If patient is unable to come to the wound care center please place him on Dr. Mai's list for evaluation Thank you for the consultation any questions please contact the wound care center DNP note has been reviewed and discussed with Dr. Raza and the impression and plan of care has been directed as dictated. Past Medical History Past Medical History: Coronary Artery Disease (CAD), CVA/TIA, GERD/Reflux, Hyperlipidemia, Hypertension, Myocardial Infarction (NM), Seizure Disorder, Vascular Disorder Additional Past Medical History / Comment(s): METABOLIC ENCEPHA LOPATHY,DIC,PVD,PROSTATIC HYPERPLASIA,TACHYCARDIA,DYSPHASIA,HEMOPLEGIA,HEMIPARESIS,DYSARTHRIA,COVID, VITAMIN B12 DEFICIENCY,TUBE FEEDING Last Myocardial Infarction Date:: 01/20/23 History of Any Multi-Drug Resistant Organisms: None Reported Past Surgical History: Orthopedic Surgery Additional Past Surgical History / Comment(s): RANGEL CATHETER,PEG TUBE ,ABOVE THE KNEE AMPUTATION LEFT , Past Psychological History: Depression Smoking Status: Unknown if ever smoked Past Alcohol Use History: Abuse Medications and Allergies Home Medications Medication Instructions Recorded Confirmed Type ALPRAZolam [Xanax] 0.25 mg PEG/G-TUBE QID 06/27/23 09/22/23 History Aspirin 81 mg PEG/G-TUBE DAILY 06/27/23 09/22/23 History Atorvastatin [Lipitor] 40 mg PEG/G-TUBE HS 06/27/23 09/22/23 History Clopidogrel [Plavix] 75 mg PEG/G-TUBE DAILY 06/27/23 09/22/23 History Cyanocobalamin (Vitamin B-12) 1,000 mcg PEG/G-TUBE DAILY 06/27/23 09/22/23 History [Vitamin B-12] Divalproex Sprinkle [Depakote 250 mg PEG/G-TUBE BID 06/27/23 09/22/23 History Sprinkle] Doxazosin Mesylate [Cardura] 4 mg PEG/G-TUBE DAILY 06/27/23 09/22/23 History Famotidine 20 mg PEG/G-TUBE BID 06/27/23 09/22/23 History Ferrous Sulfate Oral Elixir 450 mg PEG/G-TUBE DAILY 06/27/23 09/22/23 History [Feosol Liquid] Folic Acid 1 mg PEG/G-TUBE DAILY 06/27/23 09/22/23 History HYDROcodone/APAP 5-325MG [[place] 1 tab PEG/G-TUBE Q4H PRN 06/27/23 09/22/23 History 5-325] Losartan [Cozaar] 25 mg PEG/G-TUBE DAILY 06/27/23 09/22/23 History Metoprolol Tartrate 37.5 mg PEG/G-TUBE TID 06/27/23 09/22/23 History Scopolamine 1 mg/72 Hr Patch 1 patch TRANSDERM Q72H 06/27/23 09/22/23 History [TransDerm Scop] Thiamine [Vitamin B-1] 100 mg PEG/G-TUBE DAILY 06/27/23 09/22/23 History levETIRAcetam [Keppra Oral 500 mg PEG/G-TUBE BID 06/27/23 09/22/23 History Solution] traMADol HCL 50 mg PEG/G-TUBE TID 06/27/23 09/22/23 History Acetaminophen [Tylenol] 650 mg PEG/G-TUBE Q4H PRN 09/22/23 09/22/23 History Collagenase [Santyl Ointment] 1 applic TOPICAL BID 09/22/23 09/22/23 History Collagenase [Santyl Ointment] 1 applic TOPICAL DAILY PRN 09/22/23 09/22/23 History Multivitamins, Thera [Multivitamin 1 tab PEG/G-TUBE DAILY 09/22/23 09/22/23 History (formulary)] Nystatin 100,000 Unit/gm Powd 1 applic TOPICAL BID 09/22/23 09/22/23 History [Mycostatin Powder] Renacidin Irrigation Solution 50 ml IRRIGATION MOWEFR 09/22/23 09/22/23 History (Citric Jjrr-Kucdrafyzurilx-Lbrrakkvi Carbonate) Sodium Chloride [[place]] 1 spray EA NOSTRIL TID 09/22/23 09/22/23 History Vancomycin 1,500 mg IVPB Q12HR #84 each 09/29/23 Rx cefTRIAXone [Rocephin] 2,000 mg IVP Q24HR #42 each 09/29/23 Rx Allergies Allergy/AdvReac Type Severity Reaction Status Date / Time No Known Allergies Allergy Verified 09/22/23 19:42 Physical Exam Vitals: Vital Signs Temp Pulse Pulse Resp BP BP Pulse Ox 10/03/23 09:39 99 10/03/23 08:00 97.9 F 68 19 119/74 99 10/03/23 01:08 97.5 F L 67 18 141/72 94 L 10/02/23 21:01 53 L 10/02/23 18:02 97.5 F L 64 17 123/71 10/02/23 16:13 97.8 F 57 L 17 106/63 10/02/23 15:53 97.8 F 58 L 18 102/61 10/02/23 15:44 97.4 F L 66 18 126/75 100 10/02/23 15:25 53 L 112/65 10/02/23 13:11 97.6 F 65 15 127/60 100 Intake and Output 10/02/23 10/03/23 10/03/23 22:59 06:59 14:59 Intake Total 310 240 Output Total 1200 690 Balance 310 960 -690 Intake: Oral 240 Blood Product 310 Rc As-1 Unit 310 [id number] Output: Urine 1200 690 Other: Voiding Method Indwelling Catheter Weight 73.6 kg Results CBC & Chem 7: 10/03/23 04:59 10/03/23 04:59 Labs: Abnormal Lab Results - Last 24 Hours (Table) 10/02/23 10/03/23 10/03/23 Range/Units 10:49 04:59 04:59 RBC 3.53 L (4.30-5.90) m/uL Hgb 9.0 L (13.0-17.5) gm/dL Hct 28.4 L (39.0-53.0) % RDW 19.0 H (11.5-15.5) % Potassium 3.1 L (3.5-5.1) mmol/L Chloride 109 H (98-107) mmol/L BUN 7 L (9-20) mg/dL Creatinine 0.41 L (0.66-1.25) mg/dL Calcium 7.8 L (8.4-10.2) mg/dL Crossmatch See Detail Assessment and Plan (1) Pressure ulcer of sacral region, stage 3 Current Visit: Yes Status: Acute Code(s): L89.153 - PRESSURE ULCER OF SACRAL REGION, STAGE 3 SNOMED Code(s): 39314193840786 (2) Pressure ulcer of left hip, stage 4 Current Visit: Yes Status: Acute Code(s): L89.224 - PRESSURE ULCER OF LEFT HIP, STAGE 4 SNOMED Code(s): 57615901548628 (3) Pressure ulcer of right hip, stage 4 Current Visit: Yes Status: Acute Code(s): L89.214 - PRESSURE ULCER OF RIGHT HIP, STAGE 4 SNOMED Code(s): 22901673165777
[2023-10-03] MEDS: IV FLUID CONTINUATION 1,000 ML IV ONE ×2 (13:33→13:51)
[2023-10-03] MEDS ORDERED: PROPOFOL 10 MG/ML 20 ML VIAL IV ONE (13:35)
[2023-10-03] MEDS ORDERED: LIDOCAINE 1% INJ 10MG/ML (20 ML MDV) ONE (13:35)
--- NOTE | 2023-10-03 13:49 | P.PN ---
Subjective Progress Note Date: 10/03/23 CHIEF COMPLAINT: Right trochanteric decubitus ulcer HISTORY OF PRESENT ILLNESS: Patient is POD#10 status post debridement of infected right trochanteric decubitus ulcer. Patient is scheduled for PEG tube placement today. Afebrile. WBC 6.5 hemoglobin 6.6 up to 9.0 after blood transfusion. Potassium 3.1 and receiving supplement PHYSICAL EXAM: VITAL SIGNS: Reviewed. GENERAL: no acute distress. ABDOMEN: Sutherland catheter in PEG tube track to keep it open ASSESSMENT: 1. Right trochanteric decubitus ulcer status post debridement. 2. Malfunctioning PEG tube 3. Hypokalemia PLAN: -Patient scheduled for PEG tube placement today with Dr. Pleitez -Replace potassium -Wound care and antibiotics per infectious disease and wound care service Physician Commodity Industry Analyst note has been reviewed by physician. Signing provider agrees with the documented findings, assessment, and plan of care. Objective - Vital Signs Vital signs: Vital Signs Temp 97.9 F 10/03/23 08:00 Pulse 68 10/03/23 08:00 Resp 19 10/03/23 08:00 BP 119/74 10/03/23 08:00 Pulse Ox 99 10/03/23 09:39 FiO2 Intake & Output 10/02/23 10/03/23 10/03/23 18:59 06:59 18:59 Intake Total 310 240 Output Total 850 1200 1290 Balance -540 -960 -1290 Weight 73.6 kg Intake: Oral 240 Blood Product 310 Rc As-1 Unit 310 [id number] Output: Urine 850 1200 1290 Other: Voiding Method Indwelling Catheter Indwelling Catheter - Labs CBC & Chem 7: 10/03/23 04:59 10/03/23 04:59 Labs: Abnormal Lab Results - Last 24 Hours (Table) 10/02/23 10/03/23 10/03/23 Range/Units 10:49 04:59 04:59 RBC 3.53 L (4.30-5.90) m/uL Hgb 9.0 L (13.0-17.5) gm/dL Hct 28.4 L (39.0-53.0) % RDW 19.0 H (11.5-15.5) % Potassium 3.1 L (3.5-5.1) mmol/L Chloride 109 H (98-107) mmol/L BUN 7 L (9-20) mg/dL Creatinine 0.41 L (0.66-1.25) mg/dL Calcium 7.8 L (8.4-10.2) mg/dL Crossmatch See Detail
--- NOTE | 2023-10-03 13:53 | P.OP ---
Date of Procedure: 10/03/23 Preoperative Diagnosis: malnutrition Postoperative Diagnosis: Emalnutrition Procedure(s) Performed: EGD is gastrostomy tube placement Anesthesia: MAC Surgeon: Reyes Pleitez Pathology: none sent Condition: stable Disposition: PACU Description of Procedure: the patient's placed on the endoscopy table in the lateral position. He received IV sedation. The gastroscope placed oropharynx past esophagus. Patient appears to place Sutherland catheter in the PEG tube tract. The PEG tube had been traumatically removed. The Sutherland cath appeared to be in appropriate position. Full a catheter was removed. And then under direct vision be replacement gastrostomy tube was placed through the abdominal wall tract. The balloon was visualized and inflated with 10 mL of normal saline. The scope was withdrawn. Patient tolerated procedure well.
[2023-10-03] MEDS: COLLAGENASE 250 UNIT/GM OINTMENT 30 GM TUBE TOPICAL SCH (14:43)
--- NOTE | 2023-10-03 15:25 | P.PN ---
Subjective Progress Note Date: 10/03/23 Principal diagnosis: Reason for follow-up infected pressure ulcer Patient is a 63-year-old male with a past medical history significant for hypertension hyperlipidemia seizure disorder [place] CVA TIA in this patient who is a resident of a local [place] [facility] care facility patient has been sent to the ER concerning for worsening sacral and bilateral wounds, patient did have purulent drainage from his right hip wound which has been cultured and the patient did have a pelvic CT concerning for possible osteomyelitis on the right side. Patient is status post surgical debridement of the right trochanteric pressure ulcer by general surgery on 09/26/2023 On today's evaluation that is 10/03/2023,the patient remains to be afebrile, patient is on room air not requiring supplemental oxygen patient seen to be slightly more awake alert today and did answer some simple question overall not a good historian no diarrhea and the changes reported by nursing staff. Patient white count is 6.5 creatinine 0.41 Objective - Vital Signs Vital signs: Vital Signs Temp 97.5 F L 10/03/23 01:08 Pulse 67 10/03/23 01:08 Resp 18 10/03/23 01:08 BP 141/72 10/03/23 01:08 Pulse Ox 94 L 10/03/23 01:08 FiO2 Intake & Output 10/02/23 10/03/23 10/03/23 18:59 06:59 18:59 Intake Total 310 240 Output Total 850 1200 Balance -540 -960 Weight 73.6 kg Intake: Oral 240 Blood Product 310 Rc As-1 Unit 310 [id number] Output: Urine 850 1200 Other: Voiding Method Indwelling Catheter Indwelling Catheter - Exam Elderly male lying in bed in no distress Unlabored breathing decreased breath sound the base Abdominal soft no tenderness Patient is awake orientation not determined Exam completed with the help of [employer] TEACHER - Labs CBC & Chem 7: 10/03/23 04:59 10/03/23 04:59 Labs: Abnormal Lab Results - Last 24 Hours (Table) 10/02/23 10/02/23 10/03/23 Range/Units 05:11 10:49 04:59 RBC 2.79 L 3.53 L (4.40-5.60) X 10*6/uL Hgb 6.6 A* 9.0 L (13.0-17.0) g/dL Hct 22.6 L 28.4 L (39.6-50.0) % MCH 23.7 L (27.0-32.0) pg MCHC 29.2 L (32.0-37.0) g/dL RDW 19.9 H 19.0 H (11.5-14.5) % MPV 8.4 L (9.5-12.2) FL Potassium (3.5-5.1) mmol/L Chloride (98-107) mmol/L BUN (9-20) mg/dL Creatinine (0.66-1.25) mg/dL Calcium (8.4-10.2) mg/dL Crossmatch See Detail 10/03/23 Range/Units 04:59 RBC (4.40-5.60) X 10*6/uL Hgb (13.0-17.0) g/dL Hct (39.6-50.0) % MCH (27.0-32.0) pg MCHC (32.0-37.0) g/dL RDW (11.5-14.5) % MPV (9.5-12.2) FL Potassium 3.1 L (3.5-5.1) mmol/L Chloride 109 H (98-107) mmol/L BUN 7 L (9-20) mg/dL Creatinine 0.41 L (0.66-1.25) mg/dL Calcium 7.8 L (8.4-10.2) mg/dL Crossmatch Assessment and Plan (1) Pressure ulcer of right hip, stage 4 Current Visit: Yes Status: Acute Code(s): L89.214 - PRESSURE ULCER OF RIGHT HIP, STAGE 4 SNOMED Code(s): 43538731911928 (2) Pressure ulcer of left hip, stage 4 Current Visit: Yes Status: Acute Code(s): L89.224 - PRESSURE ULCER OF LEFT HIP, STAGE 4 SNOMED Code(s): 96023756830939 (3) Sacral decubitus ulcer Current Visit: Yes Status: Acute Code(s): L89.159 - PRESSURE ULCER OF SACRAL REGION, UNSPECIFIED STAGE SNOMED Code(s): 698883366 Plan: This is a telehealth visit 1patient presented to the hospital with worsening sacral and bilateral hip pressure ulcer patient noticed to have a purulent drainage especially from the right hip which has been cultured and will need to cover for the gram-positive as well as gram-negative pathogen 2-patient did have CT of the pelvis to include bilateral hip with concern for possible right hip septic arthritis/osteomyelitis 3-patient is s/p surgical debridement and deep culture of the right trochanteric pressure ulcer by general surgery cultures grew Enterococcus ampicillin resistan t 4-local culture growing Proteus, MSSA however OR culture from the right hip is growing Enterococcus that is resistant to ampicillin 5- patient is currently being treated with the vancomycin and Rocephin x 6 weeks on discharge, local wound care to continue with wet-to-dry to the right trochanteric area and Aquacel silver to the sacral and the left trochanter wound gel patient seen by the wound care Dictation was produced using [employer] dictation software. please excuse any grammatical, word or spelling errors. Time with Patient: Less than 30
[2023-10-04] MEDS ORDERED: Potassium Replacement Protocol 1 EACH MISC MISCELLANE PRN (00:11)
--- NOTE | 2023-10-04 00:14 | P.PN ---
Subjective Progress Note Date: 10/03/23 63 years old male who was sent from [facility] for worsening bilateral hip and coccygeal ulcers On admission patient also was anemic with hemoglobin dropped to 6.4 and received 1 unit of blood transfusion Further workup showing cellulitis and wound infections of bilateral hip and sacral areas, he underwent debridement of his right trochanteric decubitus ulcer. Wound culture is growing Proteus. Previous cultures growing Proteus and MSSA. Antibiotic was adjusted to Zosyn as per ID team also he is on gentle hydration with normal saline at 50 mL/h. He is also on aspirin. Pro- Calcitonin is 0.11 which is mildly up. Bone is Showing increased uptake of bilateral proximal femur suggestive of osteomyelitis with at least cellulitis over the sacral region Patient is hemodynamically stable. Patient is afebrile. Hemoglobin is 8.5 and currently 7.6 Patient is currently on Zosyn. Patient is currently on normal saline at 50 mL/h Also he is on aspirin, losartan metoprolol He is also on Depakote and Keppra and Xanax. 10/01/2023 Patient is seen and evaluated in room at bedside; awaits PEG tube insertion -Patient was planned to be discharged back to [facility] on 09/30/2023, however patient pulled out his PEG tube; balloon of the PEG tube was broken and split open Vital signs are reviewed and remained stable Patient has currently a Sutherland catheter inserted into the PEG tube site to keep the tract open and is scheduled for PEG tube placement on Tuesday10/02/2023 patient is seen and evaluated in room at bedside; discussed with nursing staff; awaits PEG tube placement, tentatively scheduled to be placed on Tuesday Vital signs are reviewed and remained stable Blood work completed this morning reveals WBC of 5.5, hemoglobin of 6.6 down from 7.7 on 09/28/2023, sodium 137, potassium 3.2, BUNs/creatinine of 7/0.4 --Patient will receive 1 unit of packed RBCs; we will continue to monitor H&H closely -Patient remains on Protonix 40 mg IV every 12 hours 10/03/2023 Patient is resting in the bed. Awake alert but confused. Patient is otherwise bedridden and has been cleared for decubitus of infection. Wound cultures growing Enterococcus, Proteus mirabilis and Staph aureus. Currently on IV ceftriaxone and vancomycin. ID is on board. Patient is scheduled for PEG tube replacement due to malnutrition. Laboratory data showed WBC 6.5 hemoglobin 9.0 and platelets 308 sodium 137 potassium 3.1 chloride 109 bicarb is 25 BUN 7 and creatinine 0.41 and calcium 7.8. Current medications reviewed. Objective - Vital Signs Vital signs: Vital Signs Temp 97.6 F 10/03/23 19:37 Pulse 70 10/03/23 19:37 Resp 18 10/03/23 19:37 BP 115/74 10/03/23 19:37 Pulse Ox 98 10/03/23 19:37 FiO2 Intake & Output 10/03/23 10/03/23 10/04/23 06:59 18:59 06:59 Intake Total 240 100 Output Total 1200 1745 Balance -960 -1645 Weight 73.6 kg Intake: IV 100 Oral 240 Output: Urine 1200 1745 Other: Voiding Method Indwelling Catheter Indwelling Catheter Indwelling Catheter # Bowel Movements 1 - Exam - Exam -GENERAL: The patient is alert and oriented, mildly confused, has no capacity to make decision per my evaluation, not in any acute distress. Well developed, well nourished. HEENT: Pupils are round and equally reacting to light. EOMI. No scleral icterus. No conjunctival pallor. Normocephalic, atraumatic. No pharyngeal erythema. No thyromegaly. CARDIOVASCULAR: S1 and S2 present. No murmurs, rubs, or gallops. PULMONARY: Chest is clear to auscultation, no wheezing , no crackles. ABDOMEN: Soft, nontender, nondistended, normoactive bowel sounds. No palpable organomegaly. -MUSCULOSKELETAL: No joint swelling or deformity. Bilateral hip pressure u lcers, right hip surgical wound with dressing in place. Sacral pressure ulcer EXTREMITIES: No cyanosis, clubbing, or pedal edema NEUROLOGICAL: Gross neurological examination did not reveal any focal deficits. SKIN: No rashes. no petechiae. - Labs CBC & Chem 7: 10/03/23 04:59 10/03/23 04:59 Labs: Abnormal Lab Results - Last 24 Hours (Table) 10/03/23 10/03/23 Range/Units 04:59 04:59 RBC 3.53 L (4.30-5.90) m/uL Hgb 9.0 L (13.0-17.5) gm/dL Hct 28.4 L (39.0-53.0) % RDW 19.0 H (11.5-15.5) % Potassium 3.1 L (3.5-5.1) mmol/L Chloride 109 H (98-107) mmol/L BUN 7 L (9-20) mg/dL Creatinine 0.41 L (0.66-1.25) mg/dL Calcium 7.8 L (8.4-10.2) mg/dL Assessment and Plan Assessment: Infected right trochanteric pressure ulcer s/p debridement on 09/25. Wound cultures growing Staph aureus, Proteus mirabilis, Enterococcus. Bilateral femoral osteomyelitis Anemia requiring 1 unit of blood transfusion Bilateral pressure ulcers of both hips and coccygeal area History of CVA GERD Hypertension Hyperlipidemia Seizure disorder Plan: Continue with ceftriaxone and vancomycin. Continue with normal saline 50 mL/h Plan for PICC line and outpatient IV antibiotic Hospice care is recommended for the patient as prognosis is poor Monitor hemoglobin Will order anemia workup Labs and medication were reviewed.Monitor labs and vitals. DVT and GI prophylaxis. DVT prophylaxis: Mechanical GI Prophylaxis: Ppi PT/OT: Pending PEG tube feeding. Time with Patient: Greater than 30
[2023-10-04] MEDS: POTASSIUM CHLORIDE 20 MEQ in WATER FOR INJECTION 1 100ML.BAG IVPB STA (01:53)
[2023-10-04 08:57] LABS: Basophils # (A) 0.02 X 10*3/uL (0.00-0.10); Basophils % (A) 0.3 %; Eosinophils # (A) 0.31 X 10*3/uL (0.04-0.35); Eosinophils % (A) 4.7 %; HCT 27.2 % (39.6-50.0); HGB 8.3 g/dL (13.0-17.0); Lymphocytes # (A) 1.32 X 10*3/uL (0.90-5.00); Lymphocytes % (A) 19.9 %; MCH 24.6 pg (27.0-32.0); MCHC 30.5 g/dL (32.0-37.0); MCV 80.5 FL (80.0-97.0); Mean Platelet Volume 8.9 FL (9.5-12.2); Monocytes # (A) 0.46 X 10*3/uL (0.20-1.00); Monocytes % (A) 6.9 %; NRBC Per 100 WBC 0 X 10*3/uL (0.00-0.01); Neutrophils # (A) 4.51 X 10*3/uL (1.80-7.70); Neutrophils % (A) 67.9 %; Platelet Count 272 X 10*3/uL (140-440); RBC 3.38 X 10*6/uL (4.40-5.60); RDW 19.7 % (11.5-14.5); WBC 6.64 X 10*3/uL (4.50-10.00)
[2023-10-04 10:03] LABS: Blood Urea Nitrogen 5.6 mg/dL (9.0-27.0); Calcium 7.7 mg/dL (8.7-10.3); Carbon Dioxide 22.8 mmol/L (21.6-31.8); Chloride 108 mmol/L (96-109); Glucose 89 mg/dL (70-110); Potassium 3.5 mmol/L (3.5-5.5); Sodium 142 mmol/L (135-145)
--- NOTE | 2023-10-04 12:08 | P.PN ---
Subjective Progress Note Date: 10/04/23 CHIEF COMPLAINT: Right trochanteric decubitus ulcer HISTORY OF PRESENT ILLNESS: Patient is POD#11 status post debridement of infected right trochanteric decubitus ulcer. Patient status post replacement of PEG tube yesterday. Afebrile WBC 6.64 Hgb 8.3 potassium 3.5 PHYSICAL EXAM: VITAL SIGNS: Reviewed. GENERAL: no acute distress. ABDOMEN: Sutherland catheter in PEG tube track to keep it open ASSESSMENT: 1. Right trochanteric decubitus ulcer status post debridement. 2. Malfunctioning PEG tube 3. Hypokalemia improved PLAN: -Consult dietitian to start tube feeds this afternoon -Wound care and antibiotics per infectious disease and wound care service Physician Record Label Internship note has been reviewed by physician. Signing provider agrees with the documented findings, assessment, and plan of care. Objective - Vital Signs Vital signs: Vital Signs Temp 98.4 F 10/04/23 07:12 Pulse 69 10/04/23 08:24 Resp 17 10/04/23 07:12 BP 120/69 10/04/23 07:12 Pulse Ox 94 L 10/04/23 08:28 FiO2 Intake & Output 10/03/23 10/04/23 10/04/23 18:59 06:59 18:59 Intake Total 100 Output Total 1745 600 400 Balance -1645 -600 -400 Weight 72 kg Intake: IV 100 Output: Urine 1745 600 400 Other: Voiding Method Indwelling Catheter Indwelling Catheter Indwelling Catheter # Bowel Movements 1 1 - Labs CBC & Chem 7: 10/04/23 05:00 10/04/23 05:00 Labs: Abnormal Lab Results - Last 24 Hours (Table) 10/04/23 10/04/23 Range/Units 05:00 05:00 RBC 3.38 L (4.40-5.60) X 10*6/uL Hgb 8.3 L (13.0-17.0) g/dL Hct 27.2 L (39.6-50.0) % MCH 24.6 L (27.0-32.0) pg MCHC 30.5 L (32.0-37.0) g/dL RDW 19.7 H (11.5-14.5) % MPV 8.9 L (9.5-12.2) FL BUN 5.6 L (9.0-27.0) mg/dL Creatinine 0.5 L (0.6-1.5) mg/dL BUN/Creatinine Ratio 11.20 L (12.00-20.00) Ratio Calcium 7.7 L (8.7-10.3) mg/dL
[2023-10-04 12:20] VITALS: BMI 25.6
[2023-10-04] MEDS: VANCOMYCIN TROUGH DUE 1 EACH MISC MISCELLANE ONE (12:47)
[2023-10-04 13:46] LABS: African American GFR (CKD) >90 (>60 ml/min/1.73 sqM); Non-African American GFR(CKD) >90 (>60 ml/min/1.73 sqM)
--- NOTE | 2023-10-04 14:04 | P.PN ---
Subjective Progress Note Date: 10/04/23 Principal diagnosis: Reason for follow-up infected pressure ulcer Patient is a 63-year-old male with a past medical history significant for hypertension hyperlipidemia seizure disorder NE CVA TIA in this patient who is a resident of a local shelter patient has been sent to the ER concerning for worsening sacral and bilateral wounds, patient did have purulent drainage from his right hip wound which has been cultured and the patient did have a pelvic CT concerning for possible osteomyelitis on the right side. Patient is status post surgical debridement of the right trochanteric pressure ulcer by general surgery on 09/26/2023 On today's evaluation that is 10/04/2023, the patient continues to be afebrile, the patient is on room air and breathing comfortably, the Pt seem to be slightly more awake and alert and did answer simple question no vomiting or diarrhea has been reported. Patient did have a white count of 6.64, creatinine 0.5 Vanco trough of 21.7 cu ltures with Enterococcus Proteus MSSA Objective - Vital Signs Vital signs: Vital Signs Temp 98.4 F 10/04/23 07:12 Pulse 69 10/04/23 07:12 Resp 17 10/04/23 07:12 BP 120/69 10/04/23 07:12 Pulse Ox 94 L 10/04/23 08:28 FiO2 Intake & Output 10/03/23 10/04/23 10/04/23 18:59 06:59 18:59 Intake Total 100 Output Total 1745 600 Balance -1645 -600 Weight 72 kg Intake: IV 100 Output: Urine 1745 600 Other: Voiding Method Indwelling Catheter Indwelling Catheter # Bowel Movements 1 - Exam Elderly male lying in bed in no distress Unlabored breathing decreased breath sound the base Abdominal soft no tenderness Patient is awake orientation not determined because of his mentation Exam completed with the help of REPAIR TABLE OPERATOR - Labs CBC & Chem 7: 10/04/23 05:00 10/04/23 12:45 Labs: Abnormal Lab Results - Last 24 Hours (Table) 10/04/23 Range/Units 05:00 RBC 3.38 L (4.40-5.60) X 10*6/uL Hgb 8.3 L (13.0-17.0) g/dL Hct 27.2 L (39.6-50.0) % MCH 24.6 L (27.0-32.0) pg MCHC 30.5 L (32.0-37.0) g/dL RDW 19.7 H (11.5-14.5) % MPV 8.9 L (9.5-12.2) FL Assessment and Plan (1) Pressure ulcer of right hip, stage 4 Current Visit: Yes Status: Acute Code(s): L89.214 - PRESSURE ULCER OF RIGHT HIP, STAGE 4 SNOMED Code(s): 56905575935849 (2) Pressure ulcer of left hip, stage 4 Current Visit: Yes Status: Acute Code(s): L89.224 - PRESSURE ULCER OF LEFT HIP, STAGE 4 SNOMED Code(s): 52151793742976 (3) Sacral decubitus ulcer Current Visit: Yes Status: Acute Code(s): L89.159 - PRESSURE ULCER OF SACRAL REGION, UNSPECIFIED STAGE SNOMED Code(s): 023464573 Plan: This is a telehealth visit 1patient presented to the hospital with worsening sacral and bilateral hip pressure ulcer patient noticed to have a purulent drainage especially from the right hip which has been cultured and will need to cover for the gram-positive as well as gram-negative pathogen 2-patient did have CT of the pelvis to include bilateral hip with concern for possible right hip septic arthritis/osteomyelitis 3-patient is s/p surgical debridement and deep culture of the right trochanteric pressure ulcer by general surgery cultures grew Enterococcus ampicillin resistant 4-local culture growing Proteus, MSSA however OR culture from the right hip is growing Enterococcus that is resistant to ampicillin 5- patient to continue with vancomycin and Rocephin x 6 weeks on discharge, with weekly monitoring of CRP and sed rate in the close outpatient follow-up continue current wound care per the wound care team Dictation was produced using [employer] dictation software. please excuse any grammatical, word or spelling errors. Time with Patient: Less than 30
[2023-10-04] MEDS: VANCOMYCIN 750 MG in SODIUM CHLORIDE 0.9% 250 ML IVPB SCH (22:23)
[2023-10-05 06:02] LABS: African American GFR (CKD) >90 (>60 ml/min/1.73 sqM); Anion Gap 5 mmol/L; Blood Urea Nitrogen 9 mg/dL (9-20); Calcium 7.6 mg/dL (8.4-10.2); Carbon Dioxide 23 mmol/L (22-30); Chloride 110 mmol/L (98-107); Glucose 157 mg/dL (74-99); Non-African American GFR(CKD) >90 (>60 ml/min/1.73 sqM); Potassium 3.5 mmol/L (3.5-5.1); Sodium 138 mmol/L (137-145)
[2023-10-05] MEDS ORDERED: Potassium Replacement Protocol 1 EACH MISC MISCELLANE PRN (06:14)
--- NOTE | 2023-10-05 06:20 | P.PN ---
Subjective Progress Note Date: 10/04/23 63 years old male who was sent from [facility] for worsening bilateral hip and coccygeal ulcers On admission patient also was anemic with hemoglobin dropped to 6.4 and received 1 unit of blood transfusion Further workup showing cellulitis and wound infections of bilateral hip and sacral areas, he underwent debridement of his right trochanteric decubitus ulcer. Wound culture is growing Proteus. Previous cultures growing Proteus and MSSA. Antibiotic was adjusted to Zosyn as per ID team also he is on gentle hydration with normal saline at 50 mL/h. He is also on aspirin. Pro- Calcitonin is 0.11 which is mildly up. Bone is Showing increased uptake of bilateral proximal femur suggestive of osteomyelitis with at least cellulitis over the sacral region Patient is hemodynamically stable. Patient is afebrile. Hemoglobin is 8.5 and currently 7.6 Patient is currently on Zosyn. Patient is currently on normal saline at 50 mL/h Also he is on aspirin, losartan metoprolol He is also on Depakote and Keppra and Xanax. 10/01/2023 Patient is seen and evaluated in room at bedside; awaits PEG tube insertion -Patient was planned to be discharged back to halfway on 09/30/2023, however patient pulled out his PEG tube; balloon of the PEG tube was broken and split open Vital signs are reviewed and remained stable Patient has currently a Sutherland catheter inserted into the PEG tube site to keep the tract open and is scheduled for PEG tube placement on Tuesday10/02/2023 patient is seen and evaluated in room at bedside; discussed with nursing staff; awaits PEG tube placement, tentatively scheduled to be placed on Tuesday Vital signs are reviewed and remained stable Blood work completed this morning reveals WBC of 5.5, hemoglobin of 6.6 down from 7.7 on 09/28/2023, sodium 137, potassium 3.2, BUNs/creatinine of 7/0.4 --Patient will receive 1 unit of packed RBCs; we will continue to monitor H&H closely -Patient remains on Protonix 40 mg IV every 12 hours 10/03/2023 Patient is resting in the bed. Awake alert but confused. Patient is otherwise bedridden and has been cleared for decubitus of infection. Wound cultures growing Enterococcus, Proteus mirabilis and Staph aureus. Currently on IV ceftriaxone and vancomycin. ID is on board. Patient is scheduled for PEG tube replacement due to malnutrition. Laboratory data showed WBC 6.5 hemoglobin 9.0 and platelets 308 sodium 137 potassium 3.1 chloride 109 bicarb is 25 BUN 7 and creatinine 0.41 and calcium 7.8. Current medications reviewed. 10/04/2023 Patient seen in follow-up this morning is awake, more alert and oriented with multiple medical consultations following. Patient is maintained on antibiotics with infectious disease following and will continue. General surgery following and has received a PEG tube. Tube feedings being resumed as well as medications through the PEG. Patient continues with local wound care and frequent position changes. Will discuss further with case management regarding discharge planning once cleared by consultations Review of systems: Unable to completely assess Active Medications Acetaminophen (Acetaminophen Tab 325 Mg Tab) 650 mg PEG/G-TUBE Q4H PRN PRN Reason: Pain or Fever > 100.5 Last Admin: 09/24/23 13:39 Dose: 650 mg Hydrocodone Bitart/Acetaminophen (Hydrocodone/Apap 5-325mg 1 Each Tab) 1 each PEG/G-TUBE Q4H PRN PRN Reason: Pain Last Admin: 10/03/23 02:09 Dose: 1 each Alprazolam (Alprazolam 0.25 Mg Tab) 0.25 mg PEG/G-TUBE QID COUNT INCLUDES THE [facility] Last Admin: 10/04/23 21:00 Dose: 0.25 mg Aspirin (Aspirin 81 Mg) 81 mg PEG/G-TUBE DAILY COUNT INCLUDES THE [facility] Last Admin: 10/04/23 08:40 Dose: 81 mg Atorvastatin Calcium (Atorvastatin 40 Mg Tab) 40 mg PEG/G-TUBE HS COUNT INCLUDES THE [facility] Last Admin: 10/04/23 21:00 Dose: 40 mg Collagenase (Collagenase 250 Unit/Gm Ointment 30 Gm Tube) 1 applic TOPICAL DAILY COUNT INCLUDES THE [facility]; Protocol Last Admin: 10/04/23 08:41 Dose: 1 applic Cyanocobalamin (Cyanocobalamin 500 Mcg Tab) 1,000 mcg PEG/G-TUBE DAILY COUNT INCLUDES THE [facility] Last Admin: 10/04/23 08:40 Dose: 1,000 mcg Divalproex Sodium (Divalproex Sprinkle 125 Mg Cap.Sprink) 250 mg PEG/G-TUBE BID COUNT INCLUDES THE [facility] Last Admin: 10/04/23 21:00 Dose: 250 mg Doxazosin Mesylate (Doxazosin 1 Mg Tab) 3 mg PEG/G-TUBE DAILY COUNT INCLUDES THE [facility] Last Admin: 10/04/23 08:42 Dose: 3 mg Famotidine (Famotidine 20 Mg Tab) 20 mg PEG/G-TUBE BID COUNT INCLUDES THE [facility] Last Admin: 10/04/23 21:00 Dose: 20 mg Ferrous Sulfate (Ferrous Sulfate Oral Elixir 300 Mg/5 Ml Cup) 450 mg PEG/G-TUBE DAILY COUNT INCLUDES THE [facility] Last Admin: 10/04/23 08:42 Dose: 450 mg Folic Acid (Folic Acid 1 Mg Tab) 1 mg PEG/G-TUBE DAILY COUNT INCLUDES THE [facility] Last Admin: 10/04/23 08:40 Dose: 1 mg Sodium Chloride (Saline 0.9%) 1,000 mls @ 50 mls/hr IV .Q20H COUNT INCLUDES THE [facility] Last Admin: 10/04/23 12:46 Dose: 50 mls/hr Ceftriaxone Sodium 2 gm/ (Sodium Chloride) 50 mls @ 100 mls/hr IVPB Q24HR COUNT INCLUDES THE [facility]; Protocol Last Admin: 10/04/23 08:40 Dose: 100 mls/hr Vancomycin HCl 750 mg/ Sodium (Chloride) 250 mls @ 125 mls/hr IVPB Q12H COUNT INCLUDES THE [facility] Last Admin: 10/04/23 22:23 Dose: 125 mls/hr Levetiracetam (Levetiracetam Oral Soln 500 Mg/5 Ml Cup) 500 mg PEG/G-TUBE BID COUNT INCLUDES THE [facility] Last Admin: 10/04/23 21:01 Dose: 500 mg Losartan Potassium (Losartan 25 Mg Tab) 25 mg PEG/G-TUBE DAILY COUNT INCLUDES THE [facility] Last Admin: 10/04/23 08:40 Dose: 25 mg Metoprolol Tartrate (Metoprolol Tartrate 25 Mg Tab) 37.5 mg PEG/G-TUBE TID COUNT INCLUDES THE [facility] Last Admin: 10/04/23 21:00 Dose: Not Given Miscellaneous Information (Potassium Replacement Protocol 1 Each Misc) 1 each MISCELLANE DAILY PRN; Protocol PRN Reason: Per Protocol Miscellaneous Information (Potassium Replacement Protocol 1 Each Misc) 1 each MISCELLANE DAILY PRN; Protocol PRN Reason: Per Protocol Multivitamins (Multivitamins, Thera 1 Each Tab) 1 each PEG/G-TUBE DAILY COUNT INCLUDES THE [facility] Last Admin: 10/04/23 08:40 Dose: 1 each Naloxone HCl (Naloxone 0.4 Mg/Ml 1 Ml Vial) 0.2 mg IV Q2M PRN PRN Reason: Opioid Reversal Nystatin (Nystatin 100,000 Unit/Gm Powd 15 Gm) 1 applic TOPICAL BID COUNT INCLUDES THE [facility]; Protocol Last Admin: 10/04/23 21:01 Dose: 1 applic Pantoprazole Sodium (Pantoprazole 40 Mg/10 Ml Vial) 40 mg IVP BID COUNT INCLUDES THE [facility] Last Admin: 10/04/23 21:00 Dose: 40 mg Potassium Bicarbonate (Potassium Bicarbonate/Cit Ac 20 Meq Tablet.Eff) 20 meq NG-TUBE Q1HR COUNT INCLUDES THE [facility]; Protocol Stop: 10/05/23 08:01 Scopolamine (Scopolamine 1 Mg/72 Hr Patch) 1 patch TRANSDERM Q72H COUNT INCLUDES THE [facility] Last Admin: 10/04/23 22:23 Dose: 1 patch Sodium Chloride (Sodium Chloride 0.65% Nasal [place] 44 Ml Btl) 1 spray NASAL TID COUNT INCLUDES THE [facility] Last Admin: 10/04/23 21:00 Dose: 1 spray Thiamine HCl (Thiamine 100 Mg Tab) 100 mg PEG/G-TUBE DAILY COUNT INCLUDES THE [facility] Last Admin: 10/04/23 08:40 Dose: 100 mg Tramadol HCl (Tramadol 50 Mg Tab) 50 mg PEG/G-TUBE TID COUNT INCLUDES THE [facility] Last Admin: 10/04/23 21:00 Dose: 50 mg Physical exam: Gen: This is a 63-year-old male who is awake, alert and oriented x 1-2, appears elderly, ill-appearing HEENT: Head is atraumatic, normocephalic. Pupils equal, round. Sclerae is anicteric. NECK: Supple. No JVD. No lymphadenopathy. No thyromegaly. LUNGS: Diminished breath sounds bilaterally otherwise clear to auscultation. No wheezes, coarse scattered rhonchi. No intercostal retractions. HEART: S1, S2 are muffled ABDOMEN: Soft. bowel sounds are present. No masses. No tenderness. EXTREMITIES: No pedal edema. No calf tenderness. NEUROLOGICAL: Patient is awake, alert and oriented x1-2. Diffusely weak Assessment: Infected right trochanteric pressure ulcer s/p debridement on 09/25. Wound cultures growing Staph aureus, Proteus mirabilis, Enterococcus. Bilateral femoral osteomyelitis Anemia requiring 1 unit of blood transfusion Bilateral pressure ulcers of both hips and coccygeal area, present on admission History of CVA GERD Hypertension Hyperlipidemia Seizure disorder Plan: Continue with ceftriaxone and vancomycin. Infectious disease following. Plan is for PICC line and continue IV antibiotic therapy Continue with normal saline 50 mL/h Hospice care is recommended for the patient as prognosis is poor, following and will resume care at [facility]CF DVT prophylaxis: Mechanical GI Prophylaxis: Ppi PT/OT: To reevaluate as patient will be going to ECF on discharge PEG tube feeding per surgery and dietary. Monitor for residuals. Will discuss further with other consultations regarding discharge planning possible discharge in the next 24 to 48 hours The impression and plan of care has been dictated by Martine Miller, Nurse Practitioner as directed. Dr. Shen MD I have performed a history and examination and MDM of this patient, discussed the same with the dictator, and agree with the dictator's assessment and plan as written ,documented as a scribe. Based on total visit time, I have performed more than 50% of the visit. Objective - Vital Signs Vital signs: Vital Signs Temp 98.6 F 10/05/23 01:17 Pulse 67 10/05/23 01:17 Resp 19 10/05/23 01:17 BP 133/83 10/05/23 01:17 Pulse Ox 97 10/05/23 01:17 FiO2 Intake & Output 10/04/23 10/04/23 10/05/23 06:59 18:59 06:59 Intake Total 118 Output Total 600 850 625 Balance -600 -732 -625 Weight 72 kg 72 kg 72 kg Intake: Oral 118 Output: Urine 600 850 625 Other: Voiding Method Indwelling Catheter Indwelling Catheter Indwelling Catheter # Bowel Movements 1 1 - Labs CBC & Chem 7: 10/04/23 05:00 10/05/23 05:01 Labs: Abnormal Lab Results - Last 24 Hours (Table) 10/04/23 10/04/23 10/04/23 Range/Units 05:00 05:00 12:45 RBC 3.38 L (4.40-5.60) X 10*6/uL Hgb 8.3 L (13.0-17.0) g/dL Hct 27.2 L (39.6-50.0) % MCH 24.6 L (27.0-32.0) pg MCHC 30.5 L (32.0-37.0) g/dL RDW 19.7 H (11.5-14.5) % MPV 8.9 L (9.5-12.2) FL Chloride (98-107) mmol/L BUN 5.6 L (9.0-27.0) mg/dL Creatinine 0.5 L 0.52 L (0.6-1.5) mg/dL BUN/Creatinine Ratio 11.20 L (12.00-20.00) Ratio Glucose (74-99) mg/dL Calcium 7.7 L (8.7-10.3) mg/dL 10/05/23 Range/Units 05:01 RBC (4.40-5.60) X 10*6/uL Hgb (13.0-17.0) g/dL Hct (39.6-50.0) % MCH (27.0-32.0) pg MCHC (32.0-37.0) g/dL RDW (11.5-14.5) % MPV (9.5-12.2) FL Chloride 110 H (98-107) mmol/L BUN (9.0-27.0) mg/dL Creatinine 0.56 L (0.6-1.5) mg/dL BUN/Creatinine Ratio (12.00-20.00) Ratio Glucose 157 H (74-99) mg/dL Calcium 7.6 L (8.7-10.3) mg/dL
[2023-10-05 07:57] LABS: Magnesium 1.1 mg/dL (1.6-2.3)
[2023-10-05] MEDS: POTASSIUM BICARBONATE/CIT AC 20 MEQ TABLET.EFF NG-TUBE SCH (10:15)
--- NOTE | 2023-10-05 12:27 | P.PN ---
Subjective Progress Note Date: 10/05/23 CHIEF COMPLAINT: Right trochanteric decubitus ulcer HISTORY OF PRESENT ILLNESS: Patient is POD#12 status post debridement of infected right trochanteric decubitus ulcer. Patient status post replacement of PEG tube on 10/03/23. Patient tube feeds have been resumed. He is tolerating tube feeds. Per nursing staff there is a hospice meeting at 4:00 today for the patient. PHYSICAL EXAM: VITAL SIGNS: Reviewed. GENERAL: no acute distress. ABDOMEN: PEG tube site clean dry and intact ASSESSMENT: 1. Right trochanteric decubitus ulcer status post debridement. 2. Malfunctioning PEG tube PLAN: -Tube feeds per dietitian -Wound care and antibiotics per infectious disease and wound care service Physician Flask Cleaner note has been reviewed by physician. Signing provider agrees with the documented findings, assessment, and plan of care. Objective - Vital Signs Vital signs: Vital Signs Temp 98.8 F 10/05/23 07:21 Pulse 63 10/05/23 08:00 Resp 19 10/05/23 08:00 BP 118/73 10/05/23 07:21 Pulse Ox 97 10/05/23 07:46 FiO2 Intake & Output 10/04/23 10/05/23 10/05/23 18:59 06:59 18:59 Intake Total 118 118 Output Total 850 625 Balance -732 -625 118 Weight 72 kg 72 kg Intake: Oral 118 118 Output: Urine 850 625 Other: Voiding Method Indwelling Catheter Indwelling Catheter Indwelling Catheter # Voids 400 # Bowel Movements 1 1 - Labs CBC & Chem 7: 10/04/23 05:00 10/05/23 05:01 Labs: Abnormal Lab Results - Last 24 Hours (Table) 10/04/23 10/05/23 Range/Units 12:45 05:01 Chloride 110 H (98-107) mmol/L Creatinine 0.52 L 0.56 L (0.66-1.25) mg/dL Glucose 157 H (74-99) mg/dL Calcium 7.6 L (8.4-10.2) mg/dL Magnesium 1.1 L (1.6-2.3) mg/dL
[2023-10-06] MEDS ORDERED: Magnesium Replacement Protocol 1 EACH MISC MISCELLANE PRN (04:41)
--- NOTE | 2023-10-06 05:19 | P.PN ---
Subjective Progress Note Date: 10/05/23 63 years old male who was sent from [facility] for worsening bilateral hip and coccygeal ulcers On admission patient also was anemic with hemoglobin dropped to 6.4 and received 1 unit of blood transfusion Further workup showing cellulitis and wound infections of bilateral hip and sacral areas, he underwent debridement of his right trochanteric decubitus ulcer. Wound culture is growing Proteus. Previous cultures growing Proteus and MSSA. Antibiotic was adjusted to Zosyn as per ID team also he is on gentle hydration with normal saline at 50 mL/h. He is also on aspirin. Pro- Calcitonin is 0.11 which is mildly up. Bone is Showing increased uptake of bilateral proximal femur suggestive of osteomyelitis with at least cellulitis over the sacral region Patient is hemodynamically stable. Patient is afebrile. Hemoglobin is 8.5 and currently 7.6 Patient is currently on Zosyn. Patient is currently on normal saline at 50 mL/h Also he is on aspirin, losartan metoprolol He is also on Depakote and Keppra and Xanax. 10/01/2023 Patient is seen and evaluated in room at bedside; awaits PEG tube insertion -Patient was planned to be discharged back to [facility] on 09/30/2023, however patient pulled out his PEG tube; balloon of the PEG tube was broken and split open Vital signs are reviewed and remained stable Patient has currently a Sutherland catheter inserted into the PEG tube site to keep the tract open and is scheduled for PEG tube placement on Tuesday10/02/2023 patient is seen and evaluated in room at bedside; discussed with nursing staff; awaits PEG tube placement, tentatively scheduled to be placed on Tuesday Vital signs are reviewed and remained stable Blood work completed this morning reveals WBC of 5.5, hemoglobin of 6.6 down from 7.7 on 09/28/2023, sodium 137, potassium 3.2, BUNs/creatinine of 7/0.4 --Patient will receive 1 unit of packed RBCs; we will continue to monitor H&H closely -Patient remains on Protonix 40 mg IV every 12 hours 10/03/2023 Patient is resting in the bed. Awake alert but confused. Patient is otherwise bedridden and has been cleared for decubitus of infection. Wound cultures growing Enterococcus, Proteus mirabilis and Staph aureus. Currently on IV ceftriaxone and vancomycin. ID is on board. Patient is scheduled for PEG tube replacement due to malnutrition. Laboratory data showed WBC 6.5 hemoglobin 9.0 and platelets 308 sodium 137 potassium 3.1 chloride 109 bicarb is 25 BUN 7 and creatinine 0.41 and calcium 7.8. Current medications reviewed. 10/04/2023 Patient seen in follow-up this morning is awake, more alert and oriented with multiple medical consultations following. Patient is maintained on antibiotics with infectious disease following and will continue. General surgery following and has received a PEG tube. Tube feedings being resumed as well as medications through the PEG. Patient continues with local wound care and frequent position changes. Will discuss further with case management regarding discharge planning once cleared by consultations 10/05/2023 Patient is seen in follow-up this morning tolerating tube feeds and continues on antibiotics in the form of ceftriaxone. Per case management/social work there is a informational meeting about hospice sometime this afternoon. Labs pending and recommend replace per protocol. Gnosis is guarded at this time Review of systems: Unable to completely assess Physical exam: Gen: This is a 63-year-old male who is asleep, alert and oriented x 1-2, appears elderly, ill-appearing HEENT: Head is atraumatic, normocephalic. Pupils equal, round. Sclerae is anicteric. NECK: Supple. No JVD. No lymphadenopathy. No thyromegaly. LUNGS: Diminished breath sounds bilaterally otherwise clear to auscultation. No wheezes, coarse scattered rhonchi. No intercostal retractions. HEART: S1, S2 are muffled ABDOMEN: Soft. bowel sounds are present. No masses. No tenderness. PEG tube noted EXTREMITIES: No pedal edema. No calf tenderness. NEUROLOGICAL: Patient is asleep, alert and oriented x1-2. Diffusely weak Assessment: Infected right trochanteric pressure ulcer s/p debridement on 09/25. Wound cultures growing Staph aureus, Proteus mirabilis, Enterococcus. Bilateral femoral osteomyelitis Anemia requiring 1 unit of blood transfusion this admission Bilateral pressure ulcers of both hips and coccygeal area, present on admission History of CVA GERD Hypertension Hyperlipidemia Seizure disorder GI prophylaxis DVT prophylaxis No code Plan: Continue with ceftriaxone and vancomycin. Infectious disease following. Plan is for PICC line and continue IV antibiotic therapy for 6 weeks course on disc harge Continue with normal saline 50 mL/h Hospice care following and awaiting a family informational meeting to discuss. Will discuss further if patient meets any criteria for inpatient or if will be continuing this at [facility] PEG tube feeding per surgery and dietary. Tolerating thus far. Monitor for residuals. Will discuss further with other consultations regarding discharge planning possible discharge in the next 24 to 48 hours The impression and plan of care has been dictated by Martine Miller, Nurse Practitioner as directed. Dr. Shen MD I have performed a history and examination and MDM of this patient, discussed the same with the dictator, and agree with the dictator's assessment and plan as written ,documented as a scribe. Based on total visit time, I have performed more than 50% of the visit. Objective - Vital Signs Vital signs: Vital Signs Temp 97.5 F L 10/06/23 01:49 Pulse 66 10/06/23 01:49 Resp 18 10/06/23 01:49 BP 125/62 10/06/23 01:49 Pulse Ox 99 10/05/23 19:19 FiO2 Intake & Output 10/05/23 10/05/23 10/06/23 06:59 18:59 06:59 Intake Total 354 Output Total 701 824 6948 Balance -612 -633 -7219 Weight 72 kg Intake: Oral 354 Output: Urine 813 306 9931 Other: Voiding Method Indwelling Catheter Indwelling Catheter Indwelling Catheter # Voids 400 # Bowel Movements 1 1 - Labs CBC & Chem 7: 10/04/23 05:00 10/05/23 05:01 Labs: Abnormal Lab Results - Last 24 Hours (Table) 10/05/23 Range/Units 05:01 Chloride 110 H (98-107) mmol/L Creatinine 0.56 L (0.66-1.25) mg/dL Glucose 157 H (74-99) mg/dL Calcium 7.6 L (8.4-10.2) mg/dL Magnesium 1.1 L (1.6-2.3) mg/dL
[2023-10-06] MEDS: MAGNESIUM SULFATE-D5W PMX 1 GM in DEXTROSE/WATER 1 100ML.BAG IVPB SCH (05:49)
[2023-10-06 07:37] VITALS: PULSE 56
[2023-10-06 15:03] VITALS: BP 98/60; RESP 16; TEMP 97.7
--- NOTE | 2023-10-06 15:04 | P.PN ---
Subjective Progress Note Date: 10/06/23 CHIEF COMPLAINT: Right trochanteric decubitus ulcer HISTORY OF PRESENT ILLNESS: Patient is POD#13 status post debridement of infected right trochanteric decubitus ulcer. Patient status post replacement of PEG tube on 10/03/23. Patient tube feeds have been resumed. He is tolerating tube feeds. Patient scheduled to be discharged back to [facility] today. Family was undecided about hospice. PHYSICAL EXAM: VITAL SIGNS: Reviewed. GENERAL: no acute distress. ABDOMEN: PEG tube site clean dry and intact ASSESSMENT: 1. Right trochanteric decubitus ulcer status post debridement. 2. Malfunctioning PEG tube PLAN: -Tube feeds per dietitian -Wound care and antibiotics per infectious disease and wound care service Physician Condenser Setter note has been reviewed by physician. Signing provider agrees with the documented findings, assessment, and plan of care. Objective - Vital Signs Vital signs: Vital Signs Temp 97.7 F 10/06/23 14:10 Pulse 56 L 10/06/23 14:10 Resp 16 10/06/23 14:10 BP 98/60 10/06/23 14:10 Pulse Ox 96 10/06/23 14:10 FiO2 Intake & Output 10/05/23 10/06/23 10/06/23 18:59 06:59 18:59 Intake Total 354 120 Output Total 650 1350 1250 Balance -296 -1350 -1130 Weight 71 kg Intake: Oral 354 120 Output: Urine 650 1350 1250 Other: Voiding Method Indwelling Catheter Indwelling Catheter # Voids 400 # Bowel Movements 1 - Labs CBC & Chem 7: 10/04/23 05:00 10/05/23 05:01
--- NOTE | 2023-10-06 15:10 | P.DS ---
Providers Date of admission: 09/22/23 19:03 Expected date of discharge: 10/06/23 Attending physician: Evonne Pond Consults: 09/22/23 18:55 Consult Physician Routine Consulting Provider: Ronak Lozano Consult Reason/Comments: infected decub Do you want consulting provider notified?: Yes, Notify in am 09/23/23 11:20 Consult Physician Routine Consulting Provider: Reyes Pleitez Consult Reason/Comments: decub debridement Do you want consulting provider notified?: Yes Primary care physician: Louisa Day DO Hospital Course: Final diagnosis Infected right trochanteric pressure ulcer s/p debridement on 09/25. Wound cultures growing Staph aureus, Proteus mirabilis, Enterococcus. Status post PICC line Bilateral femoral osteomyelitis Anemia requiring 1 unit of blood transfusion this admission Bilateral pressure ulcers of both hips and coccygeal area, present on admission History of CVA GERD Hypertension Hyperlipidemia Seizure disorder GI prophylaxis DVT prophylaxis No code Discharge disposition Patient is being discharged in a stable condition with guarded prognosis to [facility]. Patient will follow-up with Dr. Day in the outpati ent setting upon discharge. Patient is to continue with hemodialysis as scheduled. Total time taken is greater than 35 minutes. Hospital course This is a 63-year-old male who was recently admitted infected right trochanteric pressure ulcers with general surgery following. Patient is status post debridement on 09/26/2023 and wound cultures showing Staph aureus, Proteus Mirabella's, Enterococcus. Infectious disease following and patient has received a PICC line and will continue on 6 weeks of ceftriaxone and vancomycin with pharmacy to dose and outpatient follow-up. Patient with overall sign ificant comorbidities and overall poor prognosis, hospice was consulted and information was discussed. Family is discussing it further amongst themselves and will pursue hospice in the outpatient setting. Patient is returning to [facility] and will continue with IV antibiotics for 6 weeks. Patient tolerating tube feeds and will continue on Jevity 1.5 cyclic frequency with a goal rate of 67 and 1608 cc total volume daily. Patient is continued on cyclic feed infusion duration of 10 hours with feeding start time at 8 PM. Patient is to continue with free water bolus flushes of 30 cc every 4 hours. Monitor for residuals as well as continuing with aspiration precautions with head of the bed elevated 30 to 45 degrees at all times. Patient to continue with local wound care on the coccyx area by applying the wound VAC with negative pressure at 125 continuous. Regards to the bilateral lower extremities apply Santyl, saline moistened gauze, dry gauze and cover with ABD and secure with paper tape. These are to be done daily or if becoming soiled. Wound VAC will need to be changed every 2 days on Tuesday/Tuesday/Tuesday. Patient has been cleared by consultations for discharge to [facility]. Please refer to other consultation notes for further HPI. Currently no reports of chest pain, shortness of breath, or palpitations. Patient is afebrile. No reports of nausea or vomiting and patient is tolerating diet. Patient will be going to [facility] today. Overall poor and guarded prognosis. Family to discuss further with hospice in the outpatient setting. Physical exam: Gen: This is a 63-year-old male who is awake, mostly nonverbal, tracks, alert and oriented x 1-2, thin built, cachectic, elderly appearing HEENT: Head is atraumatic, normocephalic. Pupils equal, round. Sclerae is anicteric. NECK: Supple. No JVD. No lymphadenopathy. No thyromegaly. LUNGS: Diminished breath sounds bilaterally otherwise clear to auscultation. No wheezes or rhonchi. No intercostal retractions. HEART: S1, S2 are muffled ABDOMEN: Soft. Bowel sounds are present. No masses. No tenderness. EXTREMITIES: No pedal edema. No calf tenderness. Significant muscle wasting noted on upper and lower extremities NEUROLOGICAL: Patient is awake, alert and oriented x1-2. Diffusely weak Please refer to medication reconciliation sheet for a list of medications. The impression and plan of care has been dictated by Martine Miller, Nurse Practitioner as directed. Dr. Shen MD I have performed a history and examination and MDM of this patient, discussed the same with the dictator, and agree with the dictator's assessment and plan as written ,documented as a scribe. Based on total visit time, I have performed more than 50% of the visit. Patient Condition at Discharge: Poor Plan - Discharge Summary Discharge Rx Participant: No New Discharge Prescriptions: New Vancomycin 1,500 mg IVPB Q12HR #84 each cefTRIAXone [Rocephin] 2,000 mg IVP Q24HR #42 each Continue Cyanocobalamin (Vitamin B-12) [Vitamin B-12] 1,000 mcg PEG/G-TUBE DAILY Clopidogrel [Plavix] 75 mg PEG/G-TUBE DAILY Atorvastatin [Lipitor] 40 mg PEG/G-TUBE HS ALPRAZolam [Xanax] 0.25 mg PEG/G-TUBE QID Scopolamine 1 mg/72 Hr Patch [TransDerm Scop] 1 patch TRANSDERM Q72H Thiamine [Vitamin B-1] 100 mg PEG/G-TUBE DAILY traMADol HCL 50 mg PEG/G-TUBE TID Renacidin Irrigation Solution (Citric Wzoz-Jjomnyeoqnkuaf-Cgnpoxqpq Carbonate) 50 ml IRRIGATION MOWEFR Multivitamins, Thera [Multivitamin (formulary)] 1 tab PEG/G-TUBE DAILY Sodium Chloride [El Veintiseis Rippey] 1 spray EA NOSTRIL TID Divalproex Sprinkle [Depakote Sprinkle] 250 mg PEG/G-TUBE BID Aspirin 81 mg PEG/G-TUBE DAILY Doxazosin Mesylate [Cardura] 4 mg PEG/G-TUBE DAILY Ferrous Sulfate Oral Elixir [Feosol Liquid] 450 mg PEG/G-TUBE DAILY Famotidine 20 mg PEG/G-TUBE BID Folic Acid 1 mg PEG/G-TUBE DAILY HYDROcodone/APAP 5-325MG [[place] 5-325] 1 tab PEG/G-TUBE Q4H PRN PRN Reason: Pain Metoprolol Tartrate 37.5 mg PEG/G-TUBE TID Losartan [Cozaar] 25 mg PEG/G-TUBE DAILY levETIRAcetam [Keppra Oral Solution] 500 mg PEG/G-TUBE BID Acetaminophen [Tylenol] 650 mg PEG/G-TUBE Q4H PRN PRN Reason: Pain Or Fever > 100.5 Collagenase [Santyl Ointment] 1 applic TOPICAL BID Collagenase [Santyl Ointment] 1 applic TOPICAL DAILY PRN PRN Reason: pressure injury Nystatin 100,000 Unit/gm Powd [Mycostatin Powder] 1 applic TOPICAL BID Discharge Medication List ALPRAZolam [Xanax] 0.25 mg PEG/G-TUBE QID 06/27/23 [History] Aspirin 81 mg PEG/G-TUBE DAILY 06/27/23 [History] Atorvastatin [Lipitor] 40 mg PEG/G-TUBE HS 06/27/23 [History] Clopidogrel [Plavix] 75 mg PEG/G-TUBE DAILY 06/27/23 [History] Cyanocobalamin (Vitamin B-12) [Vitamin B-12] 1,000 mcg PEG/G-TUBE DAILY 06/27/23 [History] Divalproex Sprinkle [Depakote Sprinkle] 250 mg PEG/G-TUBE BID 06/27/23 [History] Doxazosin Mesylate [Cardura] 4 mg PEG/G-TUBE DAILY 06/27/23 [History] Famotidine 20 mg PEG/G-TUBE BID 06/27/23 [History] Ferrous Sulfate Oral Elixir [Feosol Liquid] 450 mg PEG/G-TUBE DAILY 06/27/23 [History] Folic Acid 1 mg PEG/G-TUBE DAILY 06/27/23 [History] HYDROcodone/APAP 5-325MG [[place] 5-325] 1 tab PEG/G-TUBE Q4H PRN 06/27/23 [History] Losartan [Cozaar] 25 mg PEG/G-TUBE DAILY 06/27/23 [History] Metoprolol Tartrate 37.5 mg PEG/G-TUBE TID 06/27/23 [History] Scopolamine 1 mg/72 Hr Patch [TransDerm Scop] 1 patch TRANSDERM Q72H 06/27/23 [History] Thiamine [Vitamin B-1] 100 mg PEG/G-TUBE DAILY 06/27/23 [History] levETIRAcetam [Keppra Oral Solution] 500 mg PEG/G-TUBE BID 06/27/23 [History] traMADol HCL 50 mg PEG/G-TUBE TID 06/27/23 [History] Acetaminophen [Tylenol] 650 mg PEG/G-TUBE Q4H PRN 09/22/23 [History] Collagenase [Santyl Ointment] 1 applic TOPICAL BID 09/22/23 [History] Collagenase [Santyl Ointment] 1 applic TOPICAL DAILY PRN 09/22/23 [History] Multivitamins, Thera [Multivitamin (formulary)] 1 tab PEG/G-TUBE DAILY 09/22/23 [History] Nystatin 100,000 Unit/gm Powd [Mycostatin Powder] 1 applic TOPICAL BID 09/22/23 [History] Renacidin Irrigation Solution (Citric Qsba-Cehyldfqdambgs-Vqfgnatvo Carbonate) 50 ml IRRIGATION MOWEFR 09/22/23 [History] Sodium Chloride [El Veintiseis Rippey] 1 spray EA NOSTRIL TID 09/22/23 [History] Vancomycin 1,500 mg IVPB Q12HR #84 each 09/29/23 [Rx] cefTRIAXone [Rocephin] 2,000 mg IVP Q24HR #42 each 09/29/23 [Rx] Follow up Appointment(s)/Referral(s): Louisa Day DO [Primary Care Provider] - 1-2 days Ambulatory/Diagnostic Orders: Basic Metabolic Panel [LAB.AMB] Location: None Selected C Reactive Protein [LAB.AMB] Location: None Selected Complete Blood Count w/diff [LAB.AMB] Location: None Selected Erythrocyte Sedimentation Rate [LAB.AMB] Location: None Selected Activity/Diet/Wound Care/Special Instructions: resume previous feeding activity as tolerated Discharge Disposition: TRANSFER TO SNF/ECF
[2023-10-06] MEDS ORDERED: VANCOMYCIN TROUGH DUE 1 EACH MISC MISCELLANE ONE (22:00)
== END 2023-10-06 17:45 | DRG 710 ==
LOC: EC 15:31 → 4SSUR 19:03 → EEVIPCON 19:03 → 4SSUR 20:04
PROVIDERS: ADMIT Hospitalist; ATTEND Hospitalist
PROC: 30233N1 Transfusion of Nonautologous Red Blood Cells into Peripheral Vein, Percutaneous Approach (ICD-10-PCS; 2023-09-24)
PROC: 0KBN0ZZ Excision of Right Hip Muscle, Open Approach (ICD-10-PCS; principal; 2023-09-26 10:25)
PROC: 02HV33Z Insertion of Infusion Device into Superior Vena Cava, Percutaneous Approach (ICD-10-PCS; 2023-09-29)
PROC: B5181ZA Fluoroscopy of Superior Vena Cava using Low Osmolar Contrast, Guidance (ICD-10-PCS; 2023-09-29)
PROC: B548ZZA Ultrasonography of Superior Vena Cava, Guidance (ICD-10-PCS; 2023-09-29)
PROC: 0DJ08ZZ Inspection of Upper Intestinal Tract, Via Natural or Artificial Opening Endoscopic (ICD-10-PCS; 2023-10-03)
PROC: 0DH68UZ Insertion of Feeding Device into Stomach, Via Natural or Artificial Opening Endoscopic (ICD-10-PCS; 2023-10-03)
PROC: 3E0G76Z Introduction of Nutritional Substance into Upper GI, Via Natural or Artificial Opening (ICD-10-PCS; 2023-10-03)
DX: A41.01 Sepsis due to Methicillin susceptible Staphylococcus aureus (principal); A41.59 Other Gram-negative sepsis; L89.214 Pressure ulcer of right hip, stage 4; D64.9 Anemia, unspecified; G81.90 Hemiplegia, unspecified affecting unspecified side; L89.224 Pressure ulcer of left hip, stage 4; M06.9 Rheumatoid arthritis, unspecified; Z74.01 Bed confinement status; B96.4 Proteus (mirabilis) (morganii) as the cause of diseases classified elsewhere; I73.9 Peripheral vascular disease, unspecified; M86.8X6 Other osteomyelitis, lower leg; L03.116 Cellulitis of left lower limb; K94.23 Gastrostomy malfunction; L89.153 Pressure ulcer of sacral region, stage 3; B95.2 Enterococcus as the cause of diseases classified elsewhere; E87.6 Hypokalemia; K21.9 Gastro-esophageal reflux disease without esophagitis; E53.8 Deficiency of other specified B group vitamins; I25.2 Old myocardial infarction; E78.5 Hyperlipidemia, unspecified; E46 Unspecified protein-calorie malnutrition; E11.69 Type 2 diabetes mellitus with other specified complication; F17.210 Nicotine dependence, cigarettes, uncomplicated; G40.909 Epilepsy, unspecified, not intractable, without status epilepticus; I10 Essential (primary) hypertension; L03.115 Cellulitis of right lower limb; Z86.19 Personal history of other infectious and parasitic diseases; Z79.02 Long term (current) use of antithrombotics/antiplatelets; Z79.82 Long term (current) use of aspirin; Z79.899 Other long term (current) drug therapy; Z86.2 Personal history of diseases of the blood and blood-forming organs and certain disorders involving the immune mechanism; Z86.73 Personal history of transient ischemic attack (TIA), and cerebral infarction without residual deficits; Z89.612 Acquired absence of left leg above knee; Z99.3 Dependence on wheelchair
CPT/HCPCS: 36415; 36430; 36573; 43246; 71045; 72193; 74018; 78315; 80048; 80053; 80202; 82565; 82607; 82728; 82746; 83540; 83550; 83605; 83735; 84145; 85025; 85027; 85610; 85652; 85730; 86140; 86850; 86900; 86901; 86920; 87040; 87070; 87075; 87077; 87186; 87205; 93005; 94760; 96365; 99285

== ENCOUNTER 2024-01-03 12:41 | Observation (INO) | payer OTHER ==
--- NOTE | 2024-01-03 13:20 | ED ---
General Adult HPI - General Chief complaint: Wound/Laceration Stated complaint: Groin wound Time Seen by Provider: 01/03/24 12:45 Source: patient Mode of arrival: EMS Limitations: no limitations - History of Present Illness Initial comments: Dictation was produced using [employer] dictation software. please excuse any grammatical, word or spelling errors. Chief Complaint: 63-year-old male presents to the emergency department with left groin wound History of Present Illness: Patient 63-year-old male presents emergency department for left groin wound. Patient is debilitated secondary to CVA. He was being cleaned by [facility] staff. They tried to abduct his left lower extremity when they heard a pop. They then noticed a wound at his left groin. Wound nurse evaluate the patient recommended patient be transferred to the ER. Unable to obtain ROS secondary to mental status - Related Data Home Medications Medication Instructions Recorded Confirmed Aspirin 81 mg PEG/G-TUBE DAILY 06/27/23 09/22/23 Atorvastatin [Lipitor] 40 mg PEG/G-TUBE HS 06/27/23 09/22/23 Clopidogrel [Plavix] 75 mg PEG/G-TUBE DAILY 06/27/23 09/22/23 Cyanocobalamin (Vitamin B-12) 1,000 mcg PEG/G-TUBE DAILY 06/27/23 09/22/23 [Vitamin B-12] Divalproex Sprinkle [Depakote 250 mg PEG/G-TUBE BID 06/27/23 09/22/23 Sprinkle] Doxazosin Mesylate [Cardura] 4 mg PEG/G-TUBE DAILY 06/27/23 09/22/23 Famotidine 20 mg PEG/G-TUBE BID 06/27/23 09/22/23 Ferrous Sulfate Oral Elixir 450 mg PEG/G-TUBE DAILY 06/27/23 09/22/23 [Feosol Liquid] Folic Acid 1 mg PEG/G-TUBE DAILY 06/27/23 09/22/23 Losartan [Cozaar] 25 mg PEG/G-TUBE DAILY 06/27/23 09/22/23 Metoprolol Tartrate 37.5 mg PEG/G-TUBE TID 06/27/23 09/22/23 Scopolamine 1 mg/72 Hr Patch 1 patch TRANSDERM Q72H 06/27/23 09/22/23 [TransDerm Scop] Thiamine [Vitamin B-1] 100 mg PEG/G-TUBE DAILY 06/27/23 09/22/23 levETIRAcetam [Keppra Oral 500 mg PEG/G-TUBE BID 06/27/23 09/22/23 Solution] Acetaminophen [Tylenol] 650 mg PEG/G-TUBE Q4H PRN 09/22/23 09/22/23 Collagenase [Santyl Ointment] 1 applic TOPICAL BID 09/22/23 09/22/23 Collagenase [Santyl Ointment] 1 applic TOPICAL DAILY PRN 09/22/23 09/22/23 Multivitamins, Thera [Multivitamin 1 tab PEG/G-TUBE DAILY 09/22/23 09/22/23 (formulary)] Nystatin 100,000 Unit/gm Powd 1 applic TOPICAL BID 09/22/23 09/22/23 [Mycostatin Powder] Renacidin Irrigation Solution 50 ml IRRIGATION MOWEFR 09/22/23 09/22/23 (Citric Mqjm-Ewekqexiolfwnv-Xmnirwlmf Carbonate) Sodium Chloride [[place]] 1 spray EA NOSTRIL TID 09/22/23 09/22/23 Previous Rx's Medication Instructions Recorded Vancomycin 1,500 mg IVPB Q12HR #84 each 09/29/23 cefTRIAXone [Rocephin] 2,000 mg IVP Q24HR #42 each 09/29/23 ALPRAZolam [Xanax] 0.25 mg PEG/G-TUBE QID #3 tab 10/06/23 HYDROcodone/APAP 5-325MG [[place] 1 tab PEG/G-TUBE Q4H PRN #4 tab 10/06/23 5-325] traMADol HCL 50 mg PEG/G-TUBE TID #3 tab 10/06/23 Allergies Allergy/AdvReac Type Severity Reaction Status Date / Time No Known Allergies Allergy Verified 09/22/23 19:42 Review of Systems ROS Statement: Those systems with pertinent positive or pertinent negative responses have been documented in the HPI. ROS Other: All systems not noted in ROS Statement are negative. Past Medical History Past Medical History: Coronary Artery Disease (CAD), CVA/TIA, GERD/Reflux, Hyperlipidemia, Hypertension, Myocardial Infarction ([place]), Seizure Disorder, Vas cular Disorder Additional Past Medical History / Comment(s): METABOLIC ENCE PHALOPATHY,DIC,PVD,PROSTATIC HYPERPLASIA,TACHYCARDIA,DYSPHASIA,HEMOPLEGIA,HEMIPARESIS,DYSARTHRIA,COV ID,VITAMIN B12 DEFICIENCY,TUBE FEEDING Last Myocardial Infarction Date:: 01/20/23 History of Any Multi-Drug Resistant Organisms: None Reported Past Surgical History: Orthopedic Surgery Additional Past Surgical History / Comment(s): RANGEL CATHETER,PEG TUBE ,ABOVE THE KNEE AMPUTATION LEFT , Past Psychological History: Depression Smoking Status: Unknown if ever smoked Past Alcohol Use History: Abuse General Exam - General Exam Comments Initial Comments: PHYSICAL EXAM: General Impression: Does not follow commands, not in acute distress HEENT: Normocephalic atraumatic, extra-ocular movements intact, pupils equal and reactive to light bilaterally, mucous membranes moist. Cardiovascular: Heart regular rate and rhythm Chest: no retractions, no tachypnea Abdomen: abdomen soft, non-tender, non-distended, no organomegaly Musculoskeletal: Contracted to the lower extremities Neurological: Contracted, does not follow commands Skin: What appears to be a chronic dermis wound, circumferential 3 cm in diameter with exposed underlying tendons and muscle Limitations: no limitations Course Vital Signs 01/03/24 01/03/24 12:44 13:31 Temperature 99.0 F 99.1 F Pulse Rate 99 103 H Respiratory 16 18 Rate Blood Pressure 131/88 153/93 O2 Sat by Pulse 95 97 Oximetry Medical Decision Making - Medical Decision Making Was pt. sent in by a medical professional or institution (ADIA Ruby, MEDICAL CHEMIST, urgent care, hospital, or fci...) When possible be specific @ -skilled nursing Did you speak to anyone other than the patient for history (EMS, parent, family, police, friend...)? What history was obtained from this source @ -History obtained solely from EMS Did you review nursing and triage notes (agree or disagree)? Why? @ -I reviewed and agree with nursing and triage notes Were old charts reviewed (outside hosp., previous admission, EMS record, old EKG, old radiological studies, urgent care reports/EKG's, [facility] records)? Report findings @ -Medical documentation reviewed Differential Diagnosis (chest pain, altered mental status, abdominal pain women, abdominal pain men, vaginal bleeding, musculoskeletal, weakness, fever, dyspnea, syncope, headache, dizziness, GI bleed, back pain, seizure, CVA, palpatations, mental health)? @ -Laceration, hip dislocation, cellulitis EKG interpreted by me (3pts min.). @ -None done X-rays interpreted by me (1pt min.). @ -See below CT interpreted by me (1pt min.). @ -None done U/S interpreted by me (1pt. min.). @ -None done What testing was considered but not performed or refused? (CT, X-rays, U/S, labs)? Why? @ -None What meds were considered but not given or refused? Why? @ -None Was smoking cessation discussed for >3mins.? @ -No Were there social determinants of health that impacted care today? How? (Homelessness, low income, unemployed, alcoholism, drug addiction, transportation, low edu. Level, literacy, decrease access to med. care, snf, rehab)? @ -No Was there de-escalation of care discussed even if they declined (Discuss DNR or withdrawal of care, Hospice)? DNR status @ -No What co-morbidities impacted this encounter? (DM, HTN, Smoking, COPD, CAD, Cancer, CVA, ARF, Chemo, Hep., AIDS, mental health diagnosis, sleep apnea, morbi d obesity)? @ -Debility, CVA Was patient admitted / discharged? Hospital course, mention meds given and route, prescriptions, significant lab abnormalities, going to OR and other pertinent info. @ -63-year-old debilitated male presents to the ER for concerns of left groin wound. Wound appears to be old as opposed to acute from events that transpired this morning. Vital signs are stable. Patient no acute distress. Patient will be admitted observation with wound consultation Laboratory evaluation obtained. Hemoglobin 8.3 which is around his baseline. Rest of labs within acceptable limits. X-ray of hip and pelvis shows no occult fractures. Patient be admitted with consultation to wound and general surgery. There is concern that patient would likely benefit from a washout with skin closure Did you discuss the management of the patient with other professionals (professionals i.e. , PA, MEDICAL CHEMIST, lab, RT, psych nurse, social service coordinator, commodity specialist, teacher, sales officer, case resource manager)? Give summary @ -Case discussed with Dr. Gotti for admission Was critical care preformed (if so, how long)? @ -No Undiagnosed new problem with uncertain prognosis? @ -No Drug Therapy requiring intensive monitoring for toxicity (Heparin, Nitro, Insulin, Cardizem)? @ -No Were any procedures done? @ -No Diagnosis/symptom? Acute, or Chronic, or Acute on Chronic? Uncomplicated (without systemic symptoms) or Complicated (systemic symptoms)? @ -Left groin wound Side effects of treatment? @ -No Exacerbation, Progression, or Severe Exacerbation? @ -No Poses a threat to life or bodily function? How? (Chest pain, [place], [place], pneumonia, PE, COPD, DKA, ARF, appy, cholecystitis, CVA, Diverticulitis, Homicidal, Suicidal, threat to staff... and all critical care pts) @ -yes - Lab Data Result diagrams: 01/03/24 13:23 01/03/24 13:23 Disposition Clinical Impression: Wound of groin Disposition: ADMITTED IP TO THIS HOSP Condition: Fair Decision Time: 13:25
[2024-01-03] MEDS ORDERED: NALOXONE 0.4 MG/ML 1 ML VIAL IV PRN (13:22)
[2024-01-03 13:41] LABS: Basophils % (A) 0 %; Eosinophils # (A) 0.4 k/uL (0-0.7); Eosinophils % (A) 4 %; HCT 27.3 % (39.0-53.0); HGB 8.3 gm/dL (13.0-17.5); Hypochromasia Marked; Lymphocytes # (A) 0.9 k/uL (1.0-4.8); Lymphocytes % (A) 9 %; MCH 24.5 pg (25.0-35.0); MCHC 30.4 g/dL (31.0-37.0); MCV 80.5 fL (80.0-100.0); Mean Platelet Volume 7.2; Monocytes # (A) 0.4 k/uL (0-1.0); Monocytes % (A) 4 %; Neutrophils # (A) 7.6 k/uL (1.3-7.7); Neutrophils % (A) 82 %; Platelet Count 450 k/uL (150-450); RBC 3.39 m/uL (4.30-5.90); WBC 9.2 k/uL (3.8-10.6)
[2024-01-03 13:49] LABS: African American GFR (CKD) >90 (>60 ml/min/1.73 sqM); Anion Gap 8 mmol/L; Blood Urea Nitrogen 22 mg/dL (9-20); Calcium 8.9 mg/dL (8.4-10.2); Carbon Dioxide 28 mmol/L (22-30); Chloride 99 mmol/L (98-107); Glucose 120 mg/dL (74-99); Non-African American GFR(CKD) >90 (>60 ml/min/1.73 sqM); Potassium 4.3 mmol/L (3.5-5.1); Sodium 135 mmol/L (137-145)
--- NOTE | 2024-01-03 14:55 | XR ---
EXAMINATION TYPE: XR Hip 2 views LT and AP Pelvis DATE OF EXAM: 01/03/2024 Comparison: CT 09/23/2023 Clinical History: 63-year-old male with popping at the left hip while doing wound care. Patient with left AKA. Findings: Marked diffuse osteopenia. Focal soft tissue air noted along the lateral margin of the left greater t rochanter corresponding to the patient's wound. No displaced fracture seen. The marked osteopenia martinez its evaluation. Moderate degenerative change of the right hip. Impression: 1. The degree of marked osteopenia limits the evaluation. No obvious displaced fracture is seen. 2. Focal soft tissue air along the lateral margin of the left greater trochanter likely corresponding to the patient's wound. 3. Moderate right hip OA.
[2024-01-03] MEDS: HYDROcodone/APAP 5-325MG 1 EACH TAB PO PRN (16:43)
--- NOTE | 2024-01-03 21:38 | P.HPIM ---
History of Present Illness H&P Date: 01/03/24 Chief Complaint: Sent to ER due to left groin wound Patient is a 63-year-old male with a past medical history of hypertension, hyperlipidemia, history of BKA left, lower extremity contractures, hemiparesis, vascular disease, history of [place], CVA/TIA with hemiparalysis and depression. Patient is bedbound and was sent from [facility] due to left groin wound. Currently has a history of nursing staff, they heard a pop when they tried to abduct left lower extremity. Patient patient has severe contractures of the right lower extremity and left AKA. Otherwise patient does not have any fever or chills. Patient was sent to ER for evaluation. X-ray hip and pelvis showed the degree of marked osteopenia limits the evaluation. No obvious displaced fracture seen. Focal soft tissue 8 along the lateral margin of the left greater trochanter likely just 0.2 patient's wound. Moderate right hip osteoarthritis. Laboratory data showed WBC 9.2 hemoglobin 8.3 and platelets 450 Sodium 135 potassium 4.3 chloride Bicarb is 28 BUN 22 and creatinine 0.57 and blood sugar 120. Review of Systems ROS unobtainable: due to mental status Past Medical History Past Medical History: Coronary Artery Disease (CAD), CVA/TIA, GERD/Reflux, Hyperlipidemia, Hypertension, Myocardial Infarction ([place]), Seizure Disorder, Vascular Disorder Additional Past Medical History / Comment(s): METABOLIC ENCEPHALOPATHY,DIC,PVD,PROSTATIC HYPERPLASIA,TACHYCARDIA,DYSPHASIA,HEMOPLEGIA,HEMIPARESIS,DYSART HRIA,COVID,VITAMIN B12 DEFICIENCY,TUBE FEEDING Last Myocardial Infarction Date:: 01/20/23 History of Any Multi-Drug Resistant Organisms: None Reported Past Surgical History: Orthopedic Surgery Additional Past Surgical History / Comment(s): RANGEL CATHETER,PEG TUBE ,ABOVE THE KNEE AMPUTATION LEFT , Past Psychological History: Depression Smoking Status: Unknown if ever smoked Past Alcohol Use History: Abuse Medications and Allergies Home Medications Medication Instructions Recorded Confirmed Type Aspirin 81 mg PO DAILY 06/27/23 01/03/24 History Atorvastatin [Lipitor] 40 mg PO HS 06/27/23 01/03/24 History Clopidogrel [Plavix] 75 mg PO DAILY 06/27/23 01/03/24 History Cyanocobalamin (Vitamin B-12) 1,000 mcg PO DAILY 06/27/23 01/03/24 History [Vitamin B-12] Divalproex Sprinkle [Depakote 250 mg PO BID 06/27/23 01/03/24 History Sprinkle] Doxazosin Mesylate [Cardura] 4 mg PO DAILY 06/27/23 01/03/24 History Famotidine 20 mg PO BID 06/27/23 01/03/24 History Ferrous Sulfate Oral Elixir 450 mg PEG/G-TUBE DAILY 06/27/23 01/03/24 History [Feosol Liquid] Folic Acid 1 mg PO DAILY 06/27/23 01/03/24 History Losartan [Cozaar] 25 mg PO DAILY 06/27/23 01/03/24 History Metoprolol Tartrate 37.5 mg PO TID 06/27/23 01/03/24 History Scopolamine 1 mg/72 Hr Patch 1 patch TRANSDERM Q72H 06/27/23 01/03/24 History [TransDerm Scop] Thiamine [Vitamin B-1] 100 mg PO DAILY 06/27/23 01/03/24 History levETIRAcetam [Keppra Oral 1,000 mg PEG/G-TUBE BID 06/27/23 01/03/24 History Solution] Acetaminophen [Tylenol] 650 mg PO Q4H PRN 09/22/23 01/03/24 History Renacidin Irrigation Solution 50 ml IRRIGATION MOWEFR 09/22/23 01/03/24 History (Citric Dviq-Bmfdswfphtihxp-Ahqkjzcix Carbonate) Sodium Chloride [[place]] 1 spray EA NOSTRIL TID 09/22/23 01/03/24 History ALPRAZolam [Xanax] 0.25 mg PEG/G-TUBE QID #3 tab 10/06/23 01/03/24 Rx HYDROcodone/APAP 5-325MG [[place] 1 tab PO Q4H PRN 01/03/24 01/03/24 History 5-325] Magnesium Oxide [Mag-Ox] 400 mg PO DAILY 01/03/24 01/03/24 History Naloxone HCl 0.4 mg IM ONCE PRN 01/03/24 01/03/24 History Omeprazole 20 mg PO DAILY 01/03/24 01/03/24 History traMADol HCL 50 mg PO TID 01/03/24 01/03/24 History Allergies Allergy/AdvReac Type Severity Reaction Status Date / Time No Known Allergies Allergy Verified 01/03/24 14:44 Physical Exam Vitals: Vital Signs Temp Pulse Resp BP Pulse Ox 01/03/24 19:05 81 14 107/80 99 01/03/24 18:17 82 16 106/76 96 01/03/24 17:17 99.2 F 102 H 16 136/88 96 01/03/24 16:10 114 H 16 94 L 01/03/24 14:38 97 18 127/82 94 L 01/03/24 13:31 99.1 F 103 H 18 153/93 97 01/03/24 12:44 99.0 F 99 16 131/88 95 Intake and Output 01/03/24 01/03/24 01/03/24 06:59 14:59 22:59 Other: Weight 58 kg PHYSICAL EXAMINATION: Patient is lying in the bed patient is awake alert but nonverbal HEENT: Normocephalic. Neck is supple. Pupils reactive. Nostrils clear. Oral cavity is moist. Neck reveals no JVD, carotid bruits, or thyromegaly. CHEST EXAMINATION: Trachea is central. Symmetrical expansion. Bibasilar diminished sounds. Lung ricci clear to auscultation and percussion. CARDIAC: Normal S1, S2 with no gallops. No murmurs ABDOMEN: Soft. Bowel sounds normal. No organomegaly. No abdominal bruits. Extremities: reveal no edema. Left AKA. Severe contractures. Left groin 2 x 3 cm lacerated wound. No purulent discharge. Clean edges.. Neurologically awake, alert but dysarthric. Severe contractures of the extremities. Skin: No rash or skin lesions. Except as above. Psychiatric: Could not be assessed completely. Musculoskeletal: No joint swelling or deformity. Results CBC & Chem 7: 01/03/24 13:23 01/03/24 13:23 Labs: Abnormal Lab Results - Last 24 Hours (Table) 01/03/24 01/03/24 Range/Units 13:23 13:23 RBC 3.39 L (4.30-5.90) m/uL Hgb 8.3 L (13.0-17.5) gm/dL Hct 27.3 L (39.0-53.0) % MCH 24.5 L (25.0-35.0) pg MCHC 30.4 L (31.0-37.0) g/dL RDW 16.0 H (11.5-15.5) % Lymphocytes # 0.9 L (1.0-4.8) k/uL Sodium 135 L (137-145) mmol/L BUN 22 H (9-20) mg/dL Creatinine 0.57 L (0.66-1.25) mg/dL Glucose 120 H (74-99) mg/dL Thrombosis Risk Factor Assmnt - DVT/VTE Prophylaxis DVT/VTE Prophylaxis: Pharmacologic Prophylaxis ordered Assessment and Plan Assessment: Left groin laceration wound with clean granular base Hypovolemic hyponatremia Normocytic anemia History of CVA with right hemiparesis, dysarthria and bedbound. Hypertension Hyperlipidemia GERD History of seizure disorder Peripheral vascular disease and prior history of left AKA Status post PEG tube and Rangel catheter placement Depression DVT prophylaxis Plan: Patient will be continued on home medications, insulin sliding scale and wound care was consulted. Continue with tube feeding. Follow-up closely. Time with Patient: Greater than 30
[2024-01-03] MEDS ORDERED: ACETAMINOPHEN TAB 325 MG TAB PO PRN (21:39)
[2024-01-03] MEDS: METOPROLOL TARTRATE 25 MG TAB PO SCH (22:41)
[2024-01-03] MEDS: ATORVASTATIN 40 MG TAB PO SCH (22:41)
[2024-01-03] MEDS: FAMOTIDINE 20 MG TAB PO SCH (22:41)
[2024-01-03] MEDS: DIVALPROEX SPRINKLE 125 MG CAP.SPRINK PO SCH (22:43)
[2024-01-03] MEDS: SODIUM CHLORIDE 0.65% NASAL SPRAY 44 ML BTL NASAL SCH (22:44)
[2024-01-03] MEDS: levETIRAcetam ORAL SOLN 500 MG/5 ML CUP PEG/G-TUBE SCH (22:44)
[2024-01-04 01:43] VITALS: RESP 16
[2024-01-04 08:28] VITALS: BP 90/57; PULSE 88; TEMP 99.6
--- NOTE | 2024-01-04 08:32 | P.GSCN ---
History of Present Illness Consult date: 01/04/24 History of present illness: 63-year-old male with previous medical history of CVA/TIA with hemiparalysis and depression. He is noted to have lower extremity contractures. 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 He also has a history of right hip wound. Otherwise, unable to obtain any history from the patient. 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; severe contratures in hands, arms, legs; METABOLIC ENCEPHALOPATHY,DIC,PVD,PROSTATIC HYPERPLASIA,TACHYC ARDIA,DYSPHASIA,DYSARTHRIA,COVID,VITAMIN B12 DEFICIENCY,TUBE FEEDING Last Myocardial Infarction Date:: 01/20/23 History of Any Multi-Drug Resistant Organisms: None Reported Past Surgical History: Orthopedic Surgery Additional Past Surgical History / Comment(s): RANGEL CATHETER, PEG TUBE, Left ABOVE THE KNEE AMPUTATION Past Psychological History: Depression Smoking Status: Unknown if ever smoked Medications and Allergies Home Medications Medication Instructions Recorded Confirmed Type Aspirin 81 mg PO DAILY 06/27/23 01/03/24 History Atorvastatin [Lipitor] 40 mg PO HS 06/27/23 01/03/24 History Clopidogrel [Plavix] 75 mg PO DAILY 06/27/23 01/03/24 History Cyanocobalamin (Vitamin B-12) 1,000 mcg PO DAILY 06/27/23 01/03/24 History [Vitamin B-12] Divalproex Sprinkle [Depakote 250 mg PO BID 06/27/23 01/03/24 History Sprinkle] Doxazosin Mesylate [Cardura] 4 mg PO DAILY 06/27/23 01/03/24 History Famotidine 20 mg PO BID 06/27/23 01/03/24 History Ferrous Sulfate Oral Elixir 450 mg PEG/G-TUBE DAILY 06/27/23 01/03/24 History [Feosol Liquid] Folic Acid 1 mg PO DAILY 06/27/23 01/03/24 History Losartan [Cozaar] 25 mg PO DAILY 06/27/23 01/03/24 History Metoprolol Tartrate 37.5 mg PO TID 06/27/23 01/03/24 History Scopolamine 1 mg/72 Hr Patch 1 patch TRANSDERM Q72H 06/27/23 01/03/24 History [TransDerm Scop] Thiamine [Vitamin B-1] 100 mg PO DAILY 06/27/23 01/03/24 History levETIRAcetam [Keppra Oral 1,000 mg PEG/G-TUBE BID 06/27/23 01/03/24 History Solution] Acetaminophen [Tylenol] 650 mg PO Q4H PRN 09/22/23 01/03/24 History Renacidin Irrigation Solution 50 ml IRRIGATION MOWEFR 09/22/23 01/03/24 History (Citric Qxvb-Pgfmczheuliqfj-Xlevabicd Carbonate) Sodium Chloride [[place]] 1 spray EA NOSTRIL TID 09/22/23 01/03/24 History ALPRAZolam [Xanax] 0.25 mg PEG/G-TUBE QID #3 tab 10/06/23 01/03/24 Rx HYDROcodone/APAP 5-325MG [[place] 1 tab PO Q4H PRN 01/03/24 01/03/24 History 5-325] Magnesium Oxide [Mag-Ox] 400 mg PO DAILY 01/03/24 01/03/24 History Naloxone HCl 0.4 mg IM ONCE PRN 01/03/24 01/03/24 History Omeprazole 20 mg PO DAILY 01/03/24 01/03/24 History traMADol HCL 50 mg PO TID 01/03/24 01/03/24 History Allergies Allergy/AdvReac Type Severity Reaction Status Date / Time No Known Allergies Allergy Verified 01/03/24 14:44 Surgical - Exam Osteopathic Statement: *. No significant issues noted on an osteopathic struct ural exam other than those noted in the History and Physical/Consult. Vital Signs Temp Pulse Resp BP Pulse Ox 99.0 F 99 16 131/88 95 01/03/24 12:44 01/03/24 12:44 01/03/24 12:44 01/03/24 12:44 01/03/24 12:44 - General no distress - Neck trachea midline - Respiratory normal respiratory effort - Abdomen Abdomen: soft, non tender - Integumentary Bilateral greater trochanter stage IV ulcers with appropriate granulation tissue and exudative slough, no active signs of infection Results - Labs 01/03/24 13:23 01/03/24 13:23 Abnormal Lab Results - Last 24 Hours (Table) 01/03/24 01/03/24 Range/Units 13:23 13:23 RBC 3.39 L (4.30-5.90) m/uL Hgb 8.3 L (13.0-17.5) gm/dL Hct 27.3 L (39.0-53.0) % MCH 24.5 L (25.0-35.0) pg MCHC 30.4 L (31.0-37.0) g/dL RDW 16.0 H (11.5-15.5) % Lymphocytes # 0.9 L (1.0-4.8) k/uL Sodium 135 L (137-145) mmol/L BUN 22 H (9-20) mg/dL Creatinine 0.57 L (0.66-1.25) mg/dL Glucose 120 H (74-99) mg/dL Diabetes panel 01/03/24 Range/Units 13:23 Sodium 135 L (137-145) mmol/L Potassium 4.3 (3.5-5.1) mmol/L Chloride 99 (98-107) mmol/L Carbon Dioxide 28 (22-30) mmol/L BUN 22 H (9-20) mg/dL Creatinine 0.57 L (0.66-1.25) mg/dL Glucose 120 H (74-99) mg/dL Calcium 8.9 (8.4-10.2) mg/dL Calcium panel 01/03/24 Range/Units 13:23 Calcium 8.9 (8.4-10.2) mg/dL Pituitary panel 01/03/24 Range/Units 13:23 Sodium 135 L (137-145) mmol/L Potassium 4.3 (3.5-5.1) mmol/L Chloride 99 (98-107) mmol/L Carbon Dioxide 28 (22-30) mmol/L BUN 22 H (9-20) mg/dL Creatinine 0.57 L (0.66-1.25) mg/dL Glucose 120 H (74-99) mg/dL Calcium 8.9 (8.4-10.2) mg/dL Adrenal panel 01/03/24 Range/Units 13:23 Sodium 135 L (137-145) mmol/L Potassium 4.3 (3.5-5.1) mmol/L Chloride 99 (98-107) mmol/L Carbon Dioxide 28 (22-30) mmol/L BUN 22 H (9-20) mg/dL Creatinine 0.57 L (0.66-1.25) mg/dL Glucose 120 H (74-99) mg/dL Calcium 8.9 (8.4-10.2) mg/dL Assessment and Plan Plan: 63-year-old male with chronic pressure wounds. Recommend wound care evaluation with local wound care. Sites do not appear to be infected at this time and do not require any urgent debridement. Continue with current medical management.
[2024-01-04 08:48] LABS: Basophils # (A) 0.01 X 10*3/uL (0.00-0.10); Basophils % (A) 0.1 %; Eosinophils # (A) 0.51 X 10*3/uL (0.04-0.35); HCT 25.7 % (39.6-50.0); HGB 7.8 g/dL (13.0-17.0); Lymphocytes # (A) 1.25 X 10*3/uL (0.90-5.00); Lymphocytes % (A) 14.8 %; MCH 24.5 pg (27.0-32.0); MCHC 30.4 g/dL (32.0-37.0); MCV 80.6 FL (80.0-97.0); Mean Platelet Volume 8.8 FL (9.5-12.2); Monocytes # (A) 0.53 X 10*3/uL (0.20-1.00); Monocytes % (A) 6.3 %; NRBC Per 100 WBC 0 X 10*3/uL (0.00-0.01); Neutrophils % (A) 72.3 %; Platelet Count 398 X 10*3/uL (140-440); RBC 3.19 X 10*6/uL (4.40-5.60); WBC 8.44 X 10*3/uL (4.50-10.00)
[2024-01-04 09:06] LABS: % Iron Saturation 8.52 (15.00-50.00); BUN/Creat Ratio 28.83 Ratio (12.00-20.00); Blood Urea Nitrogen 17.3 mg/dL (9.0-27.0); Carbon Dioxide 24.2 mmol/L (21.6-31.8); Chloride 100 mmol/L (96-109); Glucose 87 mg/dL (70-110); Iron 15 UG/DL (65-175); Potassium 3.8 mmol/L (3.5-5.5); Sodium 138 mmol/L (135-145); Total Iron Binding Capacity 176 UG/DL (228-460)
[2024-01-04] MEDS: FOLIC ACID 1 MG TAB PO SCH (09:08)
[2024-01-04] MEDS: ASPIRIN 81 MG PO SCH (09:08)
[2024-01-04] MEDS: CYANOCOBALAMIN 500 MCG TAB PO SCH (09:09)
[2024-01-04] MEDS: CLOPIDOGREL 75 MG TAB PO SCH (09:09)
[2024-01-04] MEDS: HEPARIN SODIUM,PORCINE 5,000 UNIT/ML 1 ML VIAL SQ SCH (09:10)
[2024-01-04] MEDS: THIAMINE 100 MG TAB PO SCH (09:10)
[2024-01-04] MEDS: LOSARTAN 25 MG TAB PO SCH (09:10)
[2024-01-04] MEDS: FERROUS SULFATE ORAL ELIXIR 300 MG/5 ML CUP PEG/G-TUBE SCH (09:11)
[2024-01-04] MEDS: DOXAZOSIN 4 MG TAB PO SCH (09:11)
--- NOTE | 2024-01-04 11:03 | P.CONS ---
History of Present Illness - Reason for Consult Consult date: 01/04/24 wound care - History of Present Illness This is a 63-year-old patient being seen on 5 N. for stage III pressure ulcers to right and left trochanter and Stage III pressure ulcersacrum, And open ulceration with tendon exposed to the left groin.. Right trochanter ulceration shows nonviable tissue slough Ulceration measures approximately 5 x 5 x 0.2 cm. The left groin ulceration has granulation and tendon exposed. Patient has significant amount of slough and nonviable tissue present and is not a candidate for a negative pressure wound VAC at this time. Patient has a ulceration to the left trochanter measuring approximately 1 x 1 x 3 cm with significant amount of slough and nonviable tissue present no granulation seen within the wound bed. Patient has a pressure ulcer to the sacrum measuring approximately 5 by 10 x 3cm . Granulation seen throughout the wound bed with slough and nonviable tissue present. Review of systems: Unable to obtain due to patient being poor historian Review Of Systems: Constitutional: No fever, no chills, no night sweats. No weight change. No weakness, fatigue or lethargy. No daytime sleepiness. Integumentary:reports wounds, no lesions. No rash or pruritus. No unusual bruising. No change in hair or nails. Assessment: 1. Stage III pressure ulcer right trochanter 2. Stage III pressure ulcer left trochanter 3. Stage III pressure ulcer sacrum 4. Nonpressure ulceration with tendon exposed left groin. Plan: 1. Utilize collagen to the left groin, honey gel and bordered foam to the bilateral hips. Absorptive silver to the sacrum. Cover with ABD or border foam as needed. Change Tuesday. Thank you for the consultation any questions please contact the wound care center DNP note has been reviewed and discussed with Dr. Raza and the impression and plan of care has been directed as dictated. 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; severe contratures in hands, arms, legs; METABOLIC ENCEPHALOPATHY,DIC,PVD,PROSTATIC HYPERPLASIA,TACHYCARDIA,DYSPHASIA,DYSARTHRIA,COVID,VITAMIN B12 DEFICIENCY,TUBE FEEDING Last Myocardial Infarction Date:: 01/20/23 History of Any Multi-Drug Resistant Organisms: None Reported Past Surgical History: Orthopedic Surgery Additional Past Surgical History / Comment(s): RANGEL CATHETER, PEG TUBE, Left ABOVE THE KNEE AMPUTATION Past Psychological History: Depression Smoking Status: Unknown if ever smoked Medications and Allergies Home Medications Medication Instructions Recorded Confirmed Type Aspirin 81 mg PO DAILY 06/27/23 01/03/24 History Atorvastatin [Lipitor] 40 mg PO HS 06/27/23 01/03/24 History Clopidogrel [Plavix] 75 mg PO DAILY 06/27/23 01/03/24 History Cyanocobalamin (Vitamin B-12) 1,000 mcg PO DAILY 06/27/23 01/03/24 History [Vitamin B-12] Divalproex Sprinkle [Depakote 250 mg PO BID 06/27/23 01/03/24 History Sprinkle] Doxazosin Mesylate [Cardura] 4 mg PO DAILY 06/27/23 01/03/24 History Famotidine 20 mg PO BID 06/27/23 01/03/24 History Ferrous Sulfate Oral Elixir 450 mg PEG/G-TUBE DAILY 06/27/23 01/03/24 History [Feosol Liquid] Folic Acid 1 mg PO DAILY 06/27/23 01/03/24 History Losartan [Cozaar] 25 mg PO DAILY 06/27/23 01/03/24 History Metoprolol Tartrate 37.5 mg PO TID 06/27/23 01/03/24 History Scopolamine 1 mg/72 Hr Patch 1 patch TRANSDERM Q72H 06/27/23 01/03/24 History [TransDerm Scop] Thiamine [Vitamin B-1] 100 mg PO DAILY 06/27/23 01/03/24 History levETIRAcetam [Keppra Oral 1,000 mg PEG/G-TUBE BID 06/27/23 01/03/24 History Solution] Acetaminophen [Tylenol] 650 mg PO Q4H PRN 09/22/23 01/03/24 History Renacidin Irrigation Solution 50 ml IRRIGATION MOWEFR 09/22/23 01/03/24 History (Citric Atfv-Xoqwtcxktjopnh-Aukniwmmi Carbonate) Sodium Chloride [[place]] 1 spray EA NOSTRIL TID 09/22/23 01/03/24 History ALPRAZolam [Xanax] 0.25 mg PEG/G-TUBE QID #3 tab 10/06/23 01/03/24 Rx HYDROcodone/APAP 5-325MG [[place] 1 tab PO Q4H PRN 01/03/24 01/03/24 History 5-325] Magnesium Oxide [Mag-Ox] 400 mg PO DAILY 01/03/24 01/03/24 History Naloxone HCl 0.4 mg IM ONCE PRN 01/03/24 01/03/24 History Omeprazole 20 mg PO DAILY 01/03/24 01/03/24 History traMADol HCL 50 mg PO TID 01/03/24 01/03/24 History Allergies Allergy/AdvReac Type Severity Reaction Status Date / Time No Known Allergies Allergy Verified 01/03/24 14:44 Physical Exam Vitals: Vital Signs Temp Pulse Pulse Resp BP BP BP 01/04/24 07:52 99.6 F 88 16 90/57 01/04/24 01:42 98.4 F 72 16 98/67 01/03/24 23:39 67 18 108/73 01/03/24 22:39 90 18 104/75 01/03/24 20:00 72 16 01/03/24 19:05 81 14 107/80 01/03/24 18:17 82 16 106/76 01/03/24 17:17 99.2 F 102 H 16 136/88 01/03/24 16:10 114 H 16 01/03/24 14:38 97 18 127/82 01/03/24 13:31 99.1 F 103 H 18 153/93 01/03/24 12:44 99.0 F 99 16 131/88 Pulse Ox 01/04/24 07:52 96 01/04/24 01:42 94 L 01/03/24 23:39 97 01/03/24 22:39 96 01/03/24 20:00 01/03/24 19:05 99 01/03/24 18:17 96 01/03/24 17:17 96 01/03/24 16:10 94 L 01/03/24 14:38 94 L 01/03/24 13:31 97 01/03/24 12:44 95 Intake and Output 09/10/24 09/11/24 09/11/24 22:59 06:59 14:59 Intake Total 0 590 Output Total 800 Balance 0 -210 Intake: Oral 590 Tube Feeding 0 Output: Urine 800 Other: Voiding Method Indwelling Catheter # Bowel Movements 0 Weight 58 kg Results CBC & Chem 7: 01/04/24 04:59 01/04/24 04:59 Labs: Abnormal Lab Results - Last 24 Hours (Table) 01/03/24 01/03/24 01/04/24 Range/Units 13:23 13:23 04:59 RBC 3.39 L 3.19 L (4.30-5.90) m/uL Hgb 8.3 L 7.8 L (13.0-17.5) gm/dL Hct 27.3 L 25.7 L (39.0-53.0) % MCH 24.5 L 24.5 L (25.0-35.0) pg MCHC 30.4 L 30.4 L (31.0-37.0) g/dL RDW 16.0 H 16.0 H (11.5-15.5) % MPV 8.8 L (9.5-12.2) FL Lymphocytes # 0.9 L (1.0-4.8) k/uL Eosinophils # 0.51 H (0.04-0.35) X 10*3/uL Sodium 135 L (137-145) mmol/L Anion Gap (4.00-12.00) mmol/L BUN 22 H (9-20) mg/dL Creatinine 0.57 L (0.66-1.25) mg/dL BUN/Creatinine Ratio (12.00-20.00) Ratio Glucose 120 H (74-99) mg/dL Iron (65-175) UG/DL TIBC (228-460) UG/DL % Saturation (15.00-50.00) Transferrin (204.0-354.0) mg/dL 01/04/24 Range/Units 04:59 RBC (4.30-5.90) m/uL Hgb (13.0-17.5) gm/dL Hct (39.0-53.0) % MCH (25.0-35.0) pg MCHC (31.0-37.0) g/dL RDW (11.5-15.5) % MPV (9.5-12.2) FL Lymphocytes # (1.0-4.8) k/uL Eosinophils # (0.04-0.35) X 10*3/uL Sodium (137-145) mmol/L Anion Gap 13.80 H (4.00-12.00) mmol/L BUN (9-20) mg/dL Creatinine (0.66-1.25) mg/dL BUN/Creatinine Ratio 28.83 H (12.00-20.00) Ratio Glucose (74-99) mg/dL Iron 15 L (65-175) UG/DL TIBC 176 L (228-460) UG/DL % Saturation 8.52 L (15.00-50.00) Transferrin 126.0 L (204.0-354.0) mg/dL Assessment and Plan (1) Pressure ulcer of left hip, stage 3 Current Visit: Yes Status: Acute Code(s): L89.223 - PRESSURE ULCER OF LEFT HIP, STAGE 3 SNOMED Code(s): 89968441984798 (2) Pressure ulcer of right hip, stage 3 Current Visit: Yes Status: Acute Code(s): L89.213 - PRESSURE ULCER OF RIGHT HIP, STAGE 3 SNOMED Code(s): 82842394562450 (3) Non-pressure chronic ulcer of left thigh with muscle involvement without evidence of necrosis Current Visit: Yes Status: Acute Code(s): L97.125 - NON-PRS CHR ULC OF LEFT THIGH WITH MSL INVL W/O EVD OF NECR SNOMED Code(s): 13591140066654934 (4) Pressure ulcer of sacral region, stage 3 Current Visit: No Status: Acute Code(s): L89.153 - PRESSURE ULCER OF SACRAL REGION, STAGE 3 SNOMED Code(s): 48200348483790
--- NOTE | 2024-01-04 11:29 | P.DS ---
Providers Date of admission: 01/03/24 13:23 Attending physician: Juan Gotti Consults: 01/03/24 14:16 Consult Physician Routine Consulting Provider: Donald Smith Consult Reason/Comments: groin wound Do you want consulting provider notified?: Yes Primary care physician: Louisa Day DO Hospital Course: diagnoses: Chronic left groin wound with clean granular base. With recent popping sound Multiple pressure ulcers over the sacrum, left elbow and left hip Hypovolemic hyponatremia Normocytic anemia History of CVA with right hemiparesis, dysarthria, all extremity contractures and bedbound. Hypertension Hyperlipidemia GERD History of seizure disorder Peripheral vascular disease and prior history of left AKA Status post PEG tube and [place] catheter placement Depression hosptial course: Patient is a 63-year-old male with a past medical history of hypertension, hyperlipidemia, history of BKA left, lower extremity contractures, hemiparesis, vascular disease, history of NC, CVA/TIA with hemiparalysis and depression. Patient is bedbound and was sent from long-term due to left groin wound. Currently has a history of nursing staff, they heard a pop when they tried to abduct left lower extremity. Patient patient has severe contractures of the right lower extremity and left AKA. Otherwise patient does not have any fever or chills. Patient was sent to ER for evaluation. X-ray hip and pelvis showed the degree of marked osteopenia limits the evaluation. No obvious displaced fracture seen. Focal soft tissue 8 along the lateral margin of the left greater trochanter likely just 0.2 patient's wound. Moderate right hip osteoarthritis. Laboratory data showed WBC 9.2 hemoglobin 8.3 and platelets 450 Sodium 135 potassium 4.3 chloride Bicarb is 28 BUN 22 and creatinine 0.57 and blood sugar 120. Patient remains hemodynamically stable. He was evaluated by surgery team Who recommended no surgical debridement and no antibiotics. I reviewed and I looked at the wound by myself and there is no evidence of purulent discharge, no surrounding cellulitis. No bleeding. Wound team evaluated the patient and they recommended topical treatment. Other than that patient remains medically stable for discharge Patient was cleared for discharge by surgery team as well Problems and management plan were discussed with the patient and he verbalized understanding and acceptance Patient was found stable and can be discharged home in guarded prognosis however he needs follow-up as an outpatient. Patient was instructed to follow up with PCP within one week and patient agrees We recommend patient follow-up with the wound clinic as an outpatient. Patient may benefit from plastic surgery evaluation as an outpatient Physical exam -Gen: patient is a awake alert, not interactive no distress CVS: S1-S2, RRR, no murmur Lungs: B/L CTA, no wheezing Abdomen: soft, no distention, no tenderness, positive bowel sounds -Extremity: no leg edema or induration. Left groin wound about 1 inch in diameter. No purulent discharge, no cellulitis, no bleeding -Neuro: Contractures of all 4 extremities. Meningeal signs absent Time spent more than 35 minutes Patient Condition at Discharge: Fair Plan - Discharge Summary New Discharge Prescriptions: No Action Cyanocobalamin (Vitamin B-12) [Vitamin B-12] 1,000 mcg PO DAILY Clopidogrel [Plavix] 75 mg PO DAILY Atorvastatin [Lipitor] 40 mg PO HS Scopolamine 1 mg/72 Hr Patch [TransDerm Scop] 1 patch TRANSDERM Q72H Thiamine [Vitamin B-1] 100 mg PO DAILY Renacidin Irrigation Solution (Citric [place]-Iuuxncxdwiduur-Uqgvozjrg Carbonate) 50 ml IRRIGATION MOWEFR Sodium Chloride [[place]] 1 spray EA NOSTRIL TID ALPRAZolam [Xanax] 0.25 mg PEG/G-TUBE QID #3 tab traMADol HCL 50 mg PO TID Divalproex Sprinkle [Depakote Sprinkle] 250 mg PO BID Aspirin 81 mg PO DAILY Doxazosin Mesylate [Cardura] 4 mg PO DAILY Ferrous Sulfate Oral Elixir [Feosol Liquid] 450 mg PEG/G-TUBE DAILY Famotidine 20 mg PO BID Folic Acid 1 mg PO DAILY Metoprolol Tartrate 37.5 mg PO TID Losartan [Cozaar] 25 mg PO DAILY levETIRAcetam [Keppra Oral Solution] 1,000 mg PEG/G-TUBE BID Acetaminophen [Tylenol] 650 mg PO Q4H PRN PRN Reason: Pain Or Fever > 100.5 Naloxone HCl 0.4 mg IM ONCE PRN PRN Reason: suspected opioid overdose Magnesium Oxide [Mag-Ox] 400 mg PO DAILY HYDROcodone/APAP 5-325MG [[place] 5-325] 1 tab PO Q4H PRN PRN Reason: Pain Omeprazole 20 mg PO DAILY Discharge Medication List Aspirin 81 mg PO DAILY 06/27/23 [History] Atorvastatin [Lipitor] 40 mg PO HS 06/27/23 [History] Clopidogrel [Plavix] 75 mg PO DAILY 06/27/23 [History] Cyanocobalamin (Vitamin B-12) [Vitamin B-12] 1,000 mcg PO DAILY 06/27/23 [History] Divalproex Sprinkle [Depakote Sprinkle] 250 mg PO BID 06/27/23 [History] Doxazosin Mesylate [Cardura] 4 mg PO DAILY 06/27/23 [History] Famotidine 20 mg PO BID 06/27/23 [History] Ferrous Sulfate Oral Elixir [Feosol Liquid] 450 mg PEG/G-TUBE DAILY 06/27/23 [History] Folic Acid 1 mg PO DAILY 06/27/23 [History] Losartan [Cozaar] 25 mg PO DAILY 06/27/23 [History] Metoprolol Tartrate 37.5 mg PO TID 06/27/23 [History] Scopolamine 1 mg/72 Hr Patch [TransDerm [place]] 1 patch TRANSDERM Q72H 06/27/23 [History] Thiamine [Vitamin B-1] 100 mg PO DAILY 06/27/23 [History] levETIRAcetam [Keppra Oral Solution] 1,000 mg PEG/G-TUBE BID 06/27/23 [History] Acetaminophen [Tylenol] 650 mg PO Q4H PRN 09/22/23 [History] Renacidin Irrigation Solution (Citric Rfoi-Geivpdhcgzknzj-Cuettrrcx Carbonate) 50 ml IRRIGATION MOWEFR 09/22/23 [History] Sodium Chloride [[place]gle [place]] 1 spray EA NOSTRIL TID 09/22/23 [History] ALPRAZolam [Xanax] 0.25 mg PEG/G-TUBE QID #3 tab 10/06/23 [Rx] HYDROcodone/APAP 5-325MG [[place] 5-325] 1 tab PO Q4H PRN 01/03/24 [History] Magnesium Oxide [Mag-Ox] 400 mg PO DAILY 01/03/24 [History] Naloxone HCl 0.4 mg IM ONCE PRN 01/03/24 [History] Omeprazole 20 mg PO DAILY 01/03/24 [History] traMADol HCL 50 mg PO TID 01/03/24 [History] Follow up Appointment(s)/Referral(s): Louisa Day DO [Primary Care Provider] - 1-2 days
[2024-01-04 11:42] VITALS: BMI 20.6
== END 2024-01-04 13:32 ==
LOC: EC 12:41 → 4SSUR 13:23 → 5NMEDONC 23:16
PROVIDERS: ADMIT Internal Medicine; ATTEND Internal Medicine
DX: L97.125 Non-pressure chronic ulcer of left thigh with muscle involvement without evidence of necrosis (principal); L89.213 Pressure ulcer of right hip, stage 3; L89.223 Pressure ulcer of left hip, stage 3; L89.153 Pressure ulcer of sacral region, stage 3; L89.029 Pressure ulcer of left elbow, unspecified stage; E86.1 Hypovolemia; E87.1 Hypo-osmolality and hyponatremia; D64.9 Anemia, unspecified; I73.9 Peripheral vascular disease, unspecified; K62.0 Anal polyp; M16.11 Unilateral primary osteoarthritis, right hip; I10 Essential (primary) hypertension; I25.10 Atherosclerotic heart disease of native coronary artery without angina pectoris; K21.9 Gastro-esophageal reflux disease without esophagitis; E78.5 Hyperlipidemia, unspecified; F32.A Depression, unspecified; N40.0 Benign prostatic hyperplasia without lower urinary tract symptoms; I25.2 Old myocardial infarction; I69.322 Dysarthria following cerebral infarction; I69.351 Hemiplegia and hemiparesis following cerebral infarction affecting right dominant side; Z74.01 Bed confinement status; Z86.16 Personal history of COVID-19; Z89.612 Acquired absence of left leg above knee; Z93.1 Gastrostomy status; Z79.02 Long term (current) use of antithrombotics/antiplatelets; Z79.82 Long term (current) use of aspirin; Z79.899 Other long term (current) drug therapy
CPT/HCPCS: 36415; 73502; 80048; 83540; 83550; 85025; 96372; 99284

== ENCOUNTER 2024-04-26 19:13 | Emergency (ER) | payer OTHER ==
[2024-04-26 19:29] VITALS: RESP 18; TEMP 98.3
--- NOTE | 2024-04-26 19:44 | ED ---
General Adult HPI - General Chief complaint: Recheck/Abnormal Lab/Rx Stated complaint: Peg tube issues Time Seen by Provider: 04/26/24 19:17 Source: EMS Mode of arrival: EMS - History of Present Illness Initial comments: Dictation was produced using [employer] dictation software. please excuse any grammatical, word or spelling errors. Chief Complaint: 64-year-old male with mental disability presents to the ER for clogged PEG tube and PEG tube site redness History of Present Illness: Patient 64-year-old male with debility. He is hemiplegic. He is confused at baseline. Patient lives at [facility]. It was noted that patient's PEG tube was clogged. History present illness obtained from EMS. Patient is a poor historian due to chronic mental issues. The ROS documented in this emergency department record has been reviewed and confirmed by me. Those systems with pertinent positive or negative responses have been documented in the HPI. All other systems are other negative and/or noncontributory. - Related Data Home Medications Medication Instructions Recorded Confirmed Aspirin 81 mg PO DAILY 06/27/23 01/03/24 Atorvastatin [Lipitor] 40 mg PO HS 06/27/23 01/03/24 Clopidogrel [Plavix] 75 mg PO DAILY 06/27/23 01/03/24 Cyanocobalamin (Vitamin B-12) 1,000 mcg PO DAILY 06/27/23 01/03/24 [Vitamin B-12] Divalproex Sprinkle [Depakote 250 mg PO BID 06/27/23 01/03/24 Sprinkle] Doxazosin Mesylate [Cardura] 4 mg PO DAILY 06/27/23 01/03/24 Famotidine 20 mg PO BID 06/27/23 01/03/24 Ferrous Sulfate Oral Elixir 450 mg PEG/G-TUBE DAILY 06/27/23 01/03/24 [Feosol Liquid] Folic Acid 1 mg PO DAILY 06/27/23 01/03/24 Losartan [Cozaar] 25 mg PO DAILY 06/27/23 01/03/24 Metoprolol Tartrate 37.5 mg PO TID 06/27/23 01/03/24 Scopolamine 1 mg/72 Hr Patch 1 patch TRANSDERM Q72H 06/27/23 01/03/24 [TransDerm Scop] Thiamine [Vitamin B-1] 100 mg PO DAILY 06/27/23 01/03/24 levETIRAcetam [Keppra Oral 1,000 mg PEG/G-TUBE BID 06/27/23 01/03/24 Solution] Acetaminophen [Tylenol] 650 mg PO Q4H PRN 09/22/23 01/03/24 Renacidin Irrigation Solution 50 ml IRRIGATION MOWEFR 09/22/23 01/03/24 (Citric Hzvm-Vqhxaaurtozwcj-Qcvizelrz Carbonate) Sodium Chloride [[place]] 1 spray EA NOSTRIL TID 09/22/23 01/03/24 Magnesium Oxide [Mag-Ox] 400 mg PO DAILY 01/03/24 01/03/24 Naloxone HCl 0.4 mg IM ONCE PRN 01/03/24 01/03/24 Omeprazole 20 mg PO DAILY 01/03/24 01/03/24 Previous Rx's Medication Instructions Recorded ALPRAZolam [Xanax] 0.25 mg PEG/G-TUBE QID #3 tab 10/06/23 HYDROcodone/APAP 5-325MG [[place] 1 tab PO Q4H PRN #3 tab 01/04/24 5-325] Cephalexin [Keflex] 250 mg PO Q6HR 5 Days #20 cap 04/26/24 Allergies Allergy/AdvReac Type Severity Reaction Status Date / Time No Known Allergies Allergy Verified 04/26/24 19:29 Review of Systems ROS Statement: Those systems with pertinent positive or pertinent negative responses have been documented in the HPI. ROS Other: All systems not noted in ROS Statement are negative. Past Medical History Past Medical History: Coronary Artery Disease (CAD), CVA/TIA, GERD/Reflux, Hyperlipidemia, Hypertension, Myocardial Infarction ([place]), Seizure Disorder, Vascular Disorder Additional Past Medical History / Comment(s): HEMOPLEGIA,HEMIPARESIS secondary to cerebral infarct; severe contratures in hands, arms, legs; METABOLIC ENCEPHALOPATHY,DIC,PVD,PROSTATIC HYPERPLASIA,TACHYCARDIA,DYSPHASIA,DYSARTHRIA,COVID,VITAMIN B12 DEFICIENCY,TUBE FEEDING Last Myocardial Infarction Date:: 01/20/23 History of Any Multi-Drug Resistant Organisms: ESBL, MRSA Date of last positivie culture/infection: 01/26/24 MDRO Source:: genitals Past Surgical History: Orthopedic Surgery Additional Past Surgical History / Comment(s): RANGEL CATHETER, PEG TUBE, Left ABOVE THE KNEE AMPUTATION Past Psychological History: Depression Smoking Status: Unknown if ever smoked General Exam - General Exam Comments Initial Comments: PHYSICAL EXAM: General Impression: Alert and oriented x3/4, not in acute distress HEENT: Normocephalic atraumatic, extra-ocular movements intact, pupils equal and reactive to light bilaterally, mucous membranes moist. Cardiovascular: Heart regular rate and rhythm Chest: Able to complete full sentences, no retractions, no tachypnea Abdomen: abdomen soft, non-tender, non-distended, no organomegaly, PEG tube in place there does appear to be some redness minimally around the PEG tube site Musculoskeletal: Pulses present and equal in all extremities, no peripheral edema Motor: no focal deficits noted Neurological: CN II-XII grossly intact Skin: Intact with no visualized rashes Psych: Normal affect and mood Course Vital Signs 04/26/24 19:21 Temperature 98.3 F Pulse Rate 50 L Respiratory 18 Rate Blood Pressure 110/77 O2 Sat by Pulse 98 Oximetry Medical Decision Making - Medical Decision Making Was pt. sent in by a medical professional or institution (, PA, ART TRACER, urgent care, hospital, or fdc...) When possible be specific @ -No Did you speak to anyone other than the patient for history (EMS, parent, family, police, friend...)? What history was obtained from this source @ -No Did you review nursing and triage notes (agree or disagree)? Why? @ -I reviewed and agree with nursing and triage notes Were old charts reviewed (outside hosp., previous admission, EMS record, old EKG, old radiological studies, urgent care reports/EKG's, fdc records)? Report findings @ -No old charts were reviewed Differential Diagnosis (chest pain, altered mental status, abdominal pain women, abdominal pain men, vaginal bleeding, musculoskeletal, weakness, fever, dyspnea, syncope, headache, dizziness, GI bleed, back pain, seizure, CVA, palpatations, mental health)? @ -Active malfunction, PEG tube malposition, cellulitis EKG interpreted by me (3pts min.). @ -None done X-rays interpreted by me (1pt min.). @ -X-ray shows adequate placement of PEG tube CT interpreted by me (1pt min.). @ -None done U/S interpreted by me (1pt. min.). @ -None done What testing was considered but not performed or refused? (CT, X-rays, U/S, labs)? Why? @ -None What meds were considered but not given or refused? Why? @ -None Was smoking cessation discussed for >3mins.? @ -No Were there social determinants of health that impacted care today? How? (Homelessness, low income, unemployed, alcoholism, drug addiction, ramirez sportation, low edu. Level, literacy, decrease access to med. care, half-way, rehab)? @ -No Was there de-escalation of care discussed even if they declined (Discuss DNR or withdrawal of care, Hospice)? DNR status @ -No What co-morbidities impacted this encounter? (DM, HTN, Smoking, COPD, CAD, Cancer, CVA, ARF, Chemo, Hep., AIDS, mental health diagnosis, sleep apnea, morbid obesity)? @ -Debility, Hemiplegia Was patient admitted / discharged? Hospital course, mention meds given and route, prescriptions, significant lab abnormalities, going to OR and other pertinent info. @ -64-year-old debilitated male presents to the emergency department for PEG tube malfunction and concerns of erythema surrounding the PEG tube. Vital signs upon arrival are within acceptable limits. PEG tube was replaced at the bedside. There was no other concern per EMS. Echogram x-ray shows adequate placement of PEG tube. Patient discharged prescription for Keflex. Did you discuss the management of the patient with other professionals (professionals i.e. , PA, ART TRACER, lab, RT, psych nurse, social work professor, pantry attendant, teacher, human resources officer, mental health case manager)? Give summary @ -No Was critical care preformed (if so, how long)? @ -No Undiagnosed new problem with uncertain prognosis? @ -No Drug Therapy requiring intensive monitoring for toxicity (Heparin, Nitro, Insulin, Cardizem)? @ -No Were any procedures done? @ -No Diagnosis/symptom? Acute, or Chronic, or Acute on Chronic? Uncomplicated (without systemic symptoms) or Complicated (systemic symptoms)? @ -PEG to malfunction, cellulitis Side effects of treatment? @ -No Exacerbation, Progression, or Severe Exacerbation? @ -No Poses a threat to life or bodily function? How? (Chest pain, [place], [place], pneumonia, PE, COPD, DKA, ARF, appy, cholecystitis, CVA, Diverticulitis, Homicidal, Suicidal, threat to staff... and all critical care pts) @ -yes Disposition Clinical Impression: PEG tube malfunction Disposition: HOME SELF-CARE Condition: Good Instructions (If sedation given, give patient instructions): How to Use and Car e for Your PEG Tube (ED) Prescriptions: Cephalexin [Keflex] 250 mg PO Q6HR 5 Days #20 cap Is patient prescribed a controlled substance at d/c from ED?: No Referrals: Louisa Day DO [Primary Care Provider] - 1-2 days Time of Disposition: 20:05
--- NOTE | 2024-04-26 20:28 | XR ---
EXAMINATION TYPE: XR abdomen 1V DATE OF EXAM: 04/26/2024 8:24 PM COMPARISON: 09/30/2023 CLINICAL INDICATION: Male, 64 years old with history of peg tube replacement; [facility] TECHNIQUE: AP radiographs of the abdomen were obtained prior to and following administration of 60 cc Isovue 300 via the patient's PEG tube. FINDINGS: Senior Clinical Research Associate radiograph demonstrates a PEG tube projecting over the region of the stomach. Postcon trast images demonstrate opacification of the gastric lumen without evidence of extravasation of cont rast. Degenerative disc disease is noted throughout the spine. Impression: Opacification of the gastric lumen without evidence of extravasation contrast, consistent with approp riate PEG tube placement. [facility], , 04/26/2024 8:25 PM
[2024-04-26 20:55] VITALS: BP 119/64; PULSE 76
== END 2024-04-26 21:51 | disposition home or self-care (01) ==
LOC: EC 19:13
DX: K94.23 Gastrostomy malfunction (principal); G81.90 Hemiplegia, unspecified affecting unspecified side
CPT/HCPCS: 74018; 99283

== ENCOUNTER 2024-10-29 01:44 | Emergency (ER) | payer OTHER ==
[2024-10-29] MEDS: MORPHINE SULFATE 4 MG/ML SYRINGE IM STA (03:26)
--- NOTE | 2024-10-29 03:52 | ED ---
Recheck HPI - General Chief Complaint: Recheck/Abnormal Lab/Rx Stated Complaint: PEG Tube Replacement Time Seen by Provider: 10/29/24 02:08 Source: EMS Mode of arrival: EMS Limitations: altered mental status, physical limitation - History of Present Illness Initial Comments: 64-year-old male presenting from [facility] for PEG tube replacement. His PEG tube got pulled accidentally. The area is currently covered with a bandage. No other injuries or complaints. The patient is showing no signs of distress. The area has some mild irritation surrounding the site. - Related Data Home Medications Medication Instructions Recorded Confirmed Aspirin 81 mg PO DAILY 06/27/23 01/03/24 Atorvastatin [Lipitor] 40 mg PO HS 06/27/23 01/03/24 Clopidogrel [Plavix] 75 mg PO DAILY 06/27/23 01/03/24 Cyanocobalamin (Vitamin B-12) 1,000 mcg PO DAILY 06/27/23 01/03/24 [Vitamin B-12] Divalproex Sprinkle [Depakote 250 mg PO BID 06/27/23 01/03/24 Sprinkle] Doxazosin Mesylate [Cardura] 4 mg PO DAILY 06/27/23 01/03/24 Famotidine 20 mg PO BID 06/27/23 01/03/24 Ferrous Sulfate Oral Elixir 450 mg PEG/G-TUBE DAILY 06/27/23 01/03/24 [Feosol Liquid] Folic Acid 1 mg PO DAILY 06/27/23 01/03/24 Losartan [Cozaar] 25 mg PO DAILY 06/27/23 01/03/24 Metoprolol Tartrate 37.5 mg PO TID 06/27/23 01/03/24 Scopolamine 1 mg/72 Hr Patch 1 patch TRANSDERM Q72H 06/27/23 01/03/24 [TransDerm Scop] Thiamine [Vitamin B-1] 100 mg PO DAILY 06/27/23 01/03/24 levETIRAcetam [Keppra Oral 1,000 mg PEG/G-TUBE BID 06/27/23 01/03/24 Solution] Acetaminophen [Tylenol] 650 mg PO Q4H PRN 09/22/23 01/03/24 Renacidin Irrigation Solution 50 ml IRRIGATION MOWEFR 09/22/23 01/03/24 (Citric Vnww-Pxhjugpxfpuhag-Fsqfaqoep Carbonate) Sodium Chloride [[place]] 1 spray EA NOSTRIL TID 09/22/23 01/03/24 Magnesium Oxide [Mag-Ox] 400 mg PO DAILY 01/03/24 01/03/24 Naloxone HCl 0.4 mg IM ONCE PRN 01/03/24 01/03/24 Omeprazole 20 mg PO DAILY 01/03/24 01/03/24 Previous Rx's Medication Instructions Recorded ALPRAZolam [Xanax] 0.25 mg PEG/G-TUBE QID #3 tab 10/06/23 HYDROcodone/APAP 5-325MG [[place] 1 tab PO Q4H PRN #3 tab 01/04/24 5-325] Cephalexin [Keflex] 250 mg PO Q6HR 5 Days #20 cap 04/26/24 Allergies Allergy/AdvReac Type Severity Reaction Status Date / Time No Known Allergies Allergy Verified 10/29/24 01:59 Review of Systems ROS Statement: Those systems with pertinent positive or pertinent negative responses have been documented in the HPI. ROS Other: All systems not noted in ROS Statement are negative. Past Medical History Past Medical History: Coronary Artery Disease (CAD), CVA/TIA, GERD/Reflux, Hyperlipidemia, Hypertension, Myocardial Infarction (MA), Seizure Disorder, Va scular Disorder Additional Past Medical History / Comment(s): HEMOPLEGIA,HEMIPARESIS secondary to cerebral infarct; severe contratures in hands, arms, legs; METABOLIC ENCEPHAL OPATHY,DIC,PVD,PROSTATIC HYPERPLASIA,TACHYCARDIA,DYSPHASIA,DYSARTHRIA,COVID,VITAMIN B12 DEFICIENCY,TUBE FEEDING Last Myocardial Infarction Date:: 01/20/23 History of Any Multi-Drug Resistant Organisms: ESBL, MRSA Date of last positivie culture/infection: 01/26/24 MDRO Source:: genitals Past Surgical History: Orthopedic Surgery Additional Past Surgical History / Comment(s): RANGEL CATHETER, PEG TUBE, Left ABOVE THE KNEE AMPUTATION Past Psychological History: Depression Smoking Status: Unknown if ever smoked General Exam Limitations: altered mental status (Baseline), physical limitation General appearance: alert, in no apparent distress Head exam: Present: atraumatic, normocephalic, normal inspection Eye exam: Present: normal appearance, EOMI Neck exam: Present: normal inspection. Absent: meningismus Respiratory exam: Absent: respiratory distress Cardiovascular Exam: Present: regular rate Neurological exam: Present: alert, oriented X3 Psychiatric exam: Present: normal affect, normal mood Skin exam: Present: warm, dry, other (There is some mild irritation around the PEG tube site) Course Vital Signs 10/29/24 10/29/24 10/29/24 01:53 04:20 06:34 Temperature 99.9 F H 98.8 F Pulse Rate 71 87 90 Respiratory 18 16 20 Rate Blood Pressure 128/80 121/76 163/81 O2 Sat by Pulse 97 95 95 Oximetry Medical Decision Making - Medical Decision Making Was pt. sent in by a medical professional or institution (, [facility], [employer]ER, urgent care, hospital, or long term...) When possible be specific @ -[facility] Did you speak to anyone other than the patient for history (EMS, parent, family, police, friend...)? What history was obtained from this source @ -No Did you review nursing and triage notes (agree or disagree)? Why? @ -I reviewed and agree with nursing and triage notes Were old charts reviewed (outside hosp., previous admission, EMS record, old EKG, old radiological studies, urgent care reports/EKG's, long term records)? Report findings @ -No old charts were reviewed Differential Diagnosis (chest pain, altered mental status, abdominal pain women, abdominal pain men, vaginal bleeding, weakness, fever, dyspnea, syncope, headache, dizziness, GI bleed, back pain, seizure, CVA, palpatations, mental health, musculoskeletal)? @ -Not applicable EKG interpreted by me (3pts min.). @ -As above X-rays interpreted by me (1pt min.). @ -KUB shows injected contrast through PEG tube is in the body of the stomach. Questionable rectal fecal impaction CT interpreted by me (1pt min.). @ -None done U/S interpreted by me (1pt. min.). @ -None done What testing was considered but not performed or refused? (CT, X-rays, U/S, labs)? Why? @ -None What meds were considered but not given or refused? Why? @ -None Did you discuss the management of the patient with other professionals (professionals i.e. , [facility], [employer]ANCE AND [employer]IRS[employer]ING ASSEMBLER, lab, RT, psych nurse, social media editor, ink technician, teacher, financial administration officer, business case analyst)? Give summary @ -No Was smoking cessation discussed for >3mins.? @ -No Was critical care preformed (if so, how long)? @ -No Were there social determinants of health that impacted care today? How? (Homelessness, low income, unemployed, alcoholism, drug addiction, transportation, low edu. Level, literacy, decrease access to med. care, correction, rehab)? @ -No Was there de-escalation of care discussed even if they declined (Discuss DNR or withdrawal of care, Hospice)? DNR status @ -No What co-morbidities impacted this encounter? (DM, HTN, Smoking, COPD, CAD, Cancer, CVA, ARF, Chemo, Hep., AIDS, mental health diagnosis, sleep apnea, morbid obesity)? @ -None Was patient admitted / discharged? Hospital course, mention meds given and route, prescriptions, significant lab abnormalities, going to OR and other pertinent info. @ -64-year-old male here for PEG tube replacement, his was accidentally pulled. Patient showing no signs of distress. 18 [place] PEG tube is replaced. KUB confirms placement. [facility] Follow-up with PCP. Report back to ER with any new or worsening symptoms. I discussed this case in detail with my attending Dr. Xiong Undiagnosed new problem with uncertain prognosis? @ -No Drug Therapy requiring intensive monitoring for toxicity (Heparin, Nitro, Insulin, Cardizem)? @ -No Were any procedures done? @ -PEG tube replacement Diagnosis/symptom? @ -PEG tube replacement Acute, or Chronic, or Acute on Chronic? @ -Acute Uncomplicated (without systemic symptoms) or Complicated (systemic symptoms)? @ -Uncomplicated Side effects of treatment? @ -No Exacerbation, Progression, or Severe Exacerbation? @ -No Poses a threat to life or bodily function? How? (Chest pain, [place], MA, pneumonia, PE, COPD, DKA, ARF, appy, cholecystitis, CVA, Diverticulitis, Homicidal, Suicidal, threat to staff... and all critical care pts) @ -Unlikely Disposition Clinical Impression: PEG tube malfunction Disposition: HOME SELF-CARE Condition: Fair Additional Instructions: Follow-up with PCP. Report back to ER with any new or worsening symptoms. Is patient prescribed a controlled substance at d/c from ED?: No Referrals: Louisa Day DO [Primary Care Provider] - 1-2 days
--- NOTE | 2024-10-29 04:00 | XR ---
EXAM: XR Abdomen, 1 View CLINICAL HISTORY: PEG tube placement TECHNIQUE: AP portable supine view of the abdomen/pelvis after injection of oral contrast through PEG tube. COMPARISON: 09/30/2023 and 04/26/2024 FINDINGS: Gastrointestinal tract: Moderate amount of stool in the visualized colon. Questionable rectal fecal impaction. Bones/joints: No fracture or dislocation. Vasculature: Extensive vascular calcifications. Tubes, lines and devices: Injected contrast through PEG tube is in the body of the stomach. IMPRESSION: 1. Injected contrast through PEG tube is in the body of the stomach. 2. Questionable rectal fecal impaction.
[2024-10-29 04:23] VITALS: TEMP 98.8
[2024-10-29 06:37] VITALS: PULSE 90; RESP 20
[2024-10-29 06:38] VITALS: BP 163/81
== END 2024-10-29 06:40 | disposition home or self-care (01) ==
LOC: EC 01:44
DX: K94.23 Gastrostomy malfunction (principal)
CPT/HCPCS: 74018; 99283; 96372; 43762; J2270